=== PATIENT | female | born 1960 | race Caucasian/White ===

== ENCOUNTER 2016-12-02 18:02 | Emergency (ER) | payer OTHER ==
[2016-12-02 18:21] VITALS: BP 135/68; PULSE 123; TEMP 101.2; BMI 22.0
[2016-12-02] MEDS ORDERED: SODIUM CHLORIDE 1,000 ML IV STA (19:55)
--- NOTE | 2016-12-02 19:55 | PDOC ---
History of Present Illness - General History Source: Patient Exam Limitations: No Limitations - History of Present Illness Initial Comments: 12/02/16 20:07 The patient is a 56 year old female with significant past medical history of diabetes and kidney stones who presents to the ED with 1 day of right flank pain , fever and generalized malaise. Patient reports her right flank pain radiates to the right lower quadrant with associated nausea and nonbloody vomiting, but no diarrhea. Patient also has complaints of decreased PO intake. Denies dysuria , hematuria, urgency, and frequency. No exacerbating or alleviating factors. States her symptoms are consistent with her previous kidney stones. Patient states she did not taking anything for pain or fever. No recent travels or sick contacts. The patient denies diaphoresis, chills, cough, SOB, chest pain, and palpitations. Allergies: diphenhydramine HCl Social History: No alcohol, tobacco, or drug use reported. Past Surgical History: None reported PCP: None reported <Grecia Sarmiento - Last Filed: 12/02/16 20:07> - General History Source: Patient <LoganDavid yang - Last Filed: 12/03/16 00:34> - General Chief Complaint: Pain, Acute Stated Complaint: NAUSEA/VOMITING Time Seen by Provider: 12/02/16 19:46 Past History <Grecia Sarmiento - Last Filed: 12/02/16 20:07> - Past Medical History Diabetes: Yes Kidney Stones: Yes Suicide Attempt (Hx): No - Psycho/Social/Smoking Cessation Hx Anxiety: No Suicidal Ideation: No Smoking Status: No Smoking History: Never smoked Number of Cigarettes Smoked Daily: 0 Hx Alcohol Use: Yes (OCCASIONALLY) Drug/Substance Use Hx: No Substance Use Type: None <David Kirkpatrick - Last Filed: 12/03/16 00:34> - Past Medical History Allergies/Adverse Reactions: Allergies Allergy/AdvReac Type Severity Reaction Status Date / Time diphenhydramine HCl Allergy fever Verified 12/02/16 18:18 [From Miky] Home Medications: Ambulatory Orders Linagliptin/Metformin HCl [Jentadueto 2.5 mg-500 mg Tab] 1 each PO BID 01/06/13 Nitrofurantoin Monohyd/M-Cryst [Macrobid] 100 mg PO BID #20 capsule 01/06/13 Cephalexin Monohydrate [Keflex -] 500 mg PO BID #14 capsule 01/05/15 Ibuprofen [Motrin -] 600 mg PO TID #21 tablet 01/05/15 Oxycodone HCl/Acetaminophen [Percocet 5-325 mg Tablet -] 1 - 2 tab PO Q6H #14 tablet 01/05/15 Ibuprofen [Motrin] 600 mg PO TID #30 tablet 12/03/16 Levofloxacin [Levaquin -] 500 mg PO DAILY #7 tablet 12/03/16 Review of Systems - Review of Systems Able to Perform ROS?: Yes Comments:: 12/02/16 20:07 CONSTITUTIONAL: +fever, generalized malaise decreased PO intake Absent: no chills, no fatigue EYES: Absent: visual changes ENT: Absent: ear pain, no sore throat CARDIOVASCULAR: Absent: chest pain, no palpitations RESPIRATORY: Absent: cough, no SOB GI: +nausea, vomiting Absent: no constipation, no diarrhea GENITOURINARY: Absent: dysuria, no frequency, no hematuria MUSCULOSKELETAL: +left flank pain radiating to right lower quadrant Absent: no arthralgia, no myalgia SKIN: Absent: rash NEURO: Absent: headache <Grecia Sarmiento - Last Filed: 12/02/16 20:07> *Physical Exam - Vital Signs Last Vital Signs Temp Pulse Resp BP Pulse Ox 101.2 F H 123 H 18 135/68 96 12/02/16 18:17 12/02/16 18:17 12/02/16 18:17 12/02/16 18:17 12/02/16 18:17 - Physical Exam Comments: 12/02/16 20:07 GENERAL: Well-appearing, well-nourished. Mild distress. HEENT: Normocephalic, atraumatic. PERRL, EOM intact. Dry oral mucosa. CARDIOVASCULAR: Tachycardia. Normal S1, S2. Regular rhythm. PULMONARY: Clear to auscultation bilaterally. ABDOMEN: Soft, non-distended, non-tender. MUSCULOSKELETAL: Moderate CVA tenderness EXTREMITIES: Normal ROM in all four extremities. No gross deformities. SKIN: Warm, dry. No rash NEUROLOGICAL: No focal neurological deficits. <Grecia Sarmiento - Last Filed: 12/02/16 20:07> - Vital Signs Last Vital Signs Temp Pulse Resp BP Pulse Ox 101.2 F H 123 H 18 135/68 96 12/02/16 18:17 12/02/16 18:17 12/02/16 18:17 12/02/16 18:17 12/02/16 18:17 <David Kirkpatrick - Last Filed: 12/03/16 00:34> ED Treatment Course - LABORATORY CBC & Chemistry Diagram: 12/02/16 19:50 12/02/16 19:41 - ADDITIONAL ORDERS Additional order review: Laboratory Results 12/02/16 19:41 Urine Color Red Urine Appearance Turbid Urine pH 5.0 Ur Specific [place] 1.021 Urine Protein 2+ H Urine Glucose (UA) 3+ H Urine Ketones 1+ H Urine Blood 2+ H Urine Nitrite Positive Urine Bilirubin Negative Urine Urobilinogen Negative Ur Leukocyte Esterase 3+ H Urine RBC 7 Urine WBC 318 Ur Epithelial Cells Rare Urine Mucus Moderate Urine Yeast Few 12/02/16 19:50 RBC 4.78 MCV 82.1 MCHC 34.7 RDW 13.3 MPV 7.5 D Neutrophils % 85.8 H D Lymphocytes % 5.6 L D Monocytes % 8.3 Eosinophils % 0.0 D Basophils % 0.3 <Grecia Sarmiento - Last Filed: 12/02/16 20:07> - LABORATORY CBC & Chemistry Diagram: 12/02/16 19:50 12/02/16 19:41 <David Kirkpatrick - Last Filed: 12/03/16 00:34> Medical Decision Making - Medical Decision Making 12/03/16 00:29 Dr. Kirkpatrick: The scribe's documentation has been prepared under my direction and personally reviewed by me in its entirery. I confirm that the note above accurately reflects all work, treatment, procedures, and medical decision making performed by me. Pt feels better. No vomiting. tolerated po fluids. Pt will be discharged. Rx Levaquin 500mg po Qda for 7 days. Motrin 600mg po q8 <David Kirkpatrick - Last Filed: 12/03/16 00:34> *DC/Admit/Observation/Transfer - Attestations Scribe Attestion: 12/02/16 20:07 Documentation prepared by Grecia Sarmiento, acting as medical staff assistant for David Kirkpatrick MD <Grecia Sarmiento - Last Filed: 12/02/16 20:07> - Discharge Dispostion Admit: No <David Kirkpatrick - Last Filed: 12/03/16 00:34> Diagnosis at time of Disposition: UTI (lower urinary tract infection) - Prescriptions Prescriptions: Levofloxacin [Levaquin -] 500 mg PO DAILY #7 tablet Ibuprofen [Motrin] 600 mg PO TID #30 tablet - Patient Instructions Printed Discharge Instructions: DI for Urinary Tract Infection (UTI) Additional Instructions: Take all your medications as directed. Follow up with your doctor as soon as possible for re-evaluation. Drink plwnty of fluids Print Language: ARMENIAN
[2016-12-02] MEDS ORDERED: ONDANSETRON 4 MG/2 ML VIAL IVPUSH STA (19:56)
[2016-12-02 19:58] LABS: BASOPHIL 0.3 % (0-2.0); MCH 28.5 pg (25.7-33.7); MCHC 34.7 g/dl (32.0-36.0); MEAN CELL VOLUME 82.1 fl (80-96); MEAN PLT VOLUME 7.5 fl (7.5-11.1); NEUTROPHILS 85.8 % (42.8-82.8); PLATELET COUNT 213 K/MM3 (134-434); RDW 13.3 % (11.6-15.6); WHITE BLOOD COUNT 11.2 K/mm3 (4.0-10.0)
[2016-12-02 19:59] LABS: URINE APPEARANCE TURBID; URINE BILIRUBIN NEGATIVE (NEGATIVE); URINE COLOR RED; URINE GLUCOSE (UA) 3+ (NEGATIVE); URINE KETONE 1+ (NEGATIVE); URINE NITRITE POSITIVE (NEGATIVE); URINE UROBILINOGEN NEGATIVE E.U./dl (0.2-1.0)
[2016-12-02 20:00] LABS: URINE BLOOD 2+ (NEGATIVE); URINE LEUK ESTERASE 3+ (NEGATIVE); URINE PROTEIN 2+ (NEGATIVE)
[2016-12-02] MEDS ORDERED: ACETAMINOPHEN 1000 MG/100 ML VIAL (NON FORMULARY) IVPB ONE (20:00)
[2016-12-02 20:03] LABS: URINE MUCUS MODERATE; URINE RBC 7 /hpf (0-3); URINE WBC 318 /hpf (3-5); YEAST FEW
[2016-12-02] MEDS ORDERED: ONDANSETRON 4 MG/2 ML VIAL ONE (20:05)
[2016-12-02] MEDS ORDERED: CEFTRIAXONE 50 ML ONE ×2 (20:05→20:06)
[2016-12-02] MEDS ORDERED: ACETAMINOPHEN INJECTION 100 ML IVPB ONE (20:05)
[2016-12-02 20:28] LABS: ALBUMIN 3.8 g/dl (3.4-5.0); ANION GAP 10 (8-16); CALCIUM 8.6 mg/dL (8.5-10.1); CO2 28 mmol/L (21-32); CREATININE 0.7 mg/dL (0.55-1.02); SGOT/AST 23 U/L (15-37); SGPT/ALT 49 U/L (12-78)
[2016-12-02 20:30] LABS: ALK PHOS 152 U/L (45-117); BILIRUBIN,TOTAL 1.1 mg/dL (0.2-1.0); TOT PROT 7.5 g/dl (6.4-8.2)
[2016-12-02 20:35] LABS: GLUCOSE,RANDOM 323 mg/dL (74-106)
[2016-12-02] MEDS ORDERED: KETOROLAC TROMETHAMINE 30 MG/1 ML VIAL ONE (23:29)
[2016-12-03] MEDS ORDERED: KETOROLAC TROMETHAMINE 30 MG/1 ML VIAL IVPUSH ONE (00:21)
== END 2016-12-03 00:50 | disposition home or self-care (01) ==
LOC: JER 18:02
PROC: 3E03329 Introduction of Other Anti-infective into Peripheral Vein, Percutaneous Approach (ICD-10-PCS; principal; 2016-12-02)
PROC: 3E033NZ Introduction of Analgesics, Hypnotics, Sedatives into Peripheral Vein, Percutaneous Approach (ICD-10-PCS; 2016-12-02)
PROC: 3E033GC Introduction of Other Therapeutic Substance into Peripheral Vein, Percutaneous Approach (ICD-10-PCS; 2016-12-02)
PROC: 3E0333Z Introduction of Anti-inflammatory into Peripheral Vein, Percutaneous Approach (ICD-10-PCS; 2016-12-02)
DX: N39.0 Urinary tract infection, site not specified (principal); Z87.442 Personal history of urinary calculi
CPT/HCPCS: 36415; 80053; 81003; 81015; 83690; 85025; 87086; 87186; 99282-25

== ENCOUNTER 2016-12-03 17:57 | Inpatient (IN) | payer OTHER ==
[2016-12-03] MEDS ORDERED: SODIUM CHLORIDE 0.9% 1000 ML INFUS.BAG IV ONE (19:42)
[2016-12-03] MEDS ORDERED: CEFTRIAXONE 1 GM in DEXTROSE 5%-WATER - 50 ML IVPB ONE (19:45)
--- NOTE | 2016-12-03 19:45 | PDOC ---
History of Present Illness - General History Source: Patient, Old Records Exam Limitations: No Limitations - History of Present Illness Initial Comments: 12/03/16 19:52 The patient is a 56 year old female with past medical history of renal stones and diabetes who presents to the ED with complaints of worsening fever, right flank pain, as well as nausea and vomiting x3. The patient presented to the ED yesterday with similar, yet milder symptoms and was treated for a UTI in which she received one dose of ceftriaxone and was sent home with levaquin. The patient complains of increased weakness but family denies any changes in mental status. She denies any chest pain, shortness of breath, or cough. She denies any dysuria, hematuria, frequency, or urgency. Social hx: lithotripsy Social hx: The patient lives at home and denies any drug, alcohol, or tobacco use. <Dee Quintero - Last Filed: 12/03/16 22:44> <Brooklyn Augustine - Last Filed: 12/04/16 00:45> - General Chief Complaint: SIRS, Suspected/Possible Stated Complaint: FEVER Time Seen by Provider: 12/03/16 19:19 Past History <Dee Quintero - Last Filed: 12/03/16 22:44> - Past Medical History Diabetes: Yes Kidney Stones: Yes Suicide Attempt (Hx): No - Psycho/Social/Smoking Cessation Hx Anxiety: No Suicidal Ideation: No Smoking Status: No Smoking History: Never smoked Have you smoked in the past 12 months: No Number of Cigarettes Smoked Daily: 0 Information on smoking cessation initiated: No Hx Alcohol Use: No Drug/Substance Use Hx: No Substance Use Type: None <Brooklyn Augustine - Last Filed: 12/04/16 00:45> - Past Medical History Allergies/Adverse Reactions: Allergies Allergy/AdvReac Type Severity Reaction Status Date / Time diphenhydramine HCl Allergy fever Verified 12/03/16 18:02 [From Benadryl] Home Medications: Ambulatory Orders Ibuprofen [Motrin -] 600 mg PO TID #21 tablet 01/05/15 Review of Systems - Review of Systems Able to Perform ROS?: Yes Comments:: 12/03/16 19:52 GENERAL/CONSTITUTIONAL: Present: fever, chills, weakness, decreased appetite HEAD, EYES, EARS, NOSE AND THROAT: No change in vision. No ear pain or discharge. No sore throat. CARDIOVASCULAR: No chest pain or shortness of breath. RESPIRATORY: No cough, wheezing, or hemoptysis. GASTROINTESTINAL: Present: nausea, vomiting No diarrhea or constipation. GENITOURINARY: Present: Right lower back pain No dysuria, frequency, or change in urination. MUSCULOSKELETAL: No joint or muscle swelling or pain. No neck or back pain. SKIN: No rash NEUROLOGIC: No headache, vertigo, loss of consciousness, or change in strength/ sensation. ENDOCRINE: No increased thirst. No abnormal weight change. HEMATOLOGIC/LYMPHATIC: No anemia, easy bleeding, or history of blood clots. ALLERGIC/IMMUNOLOGIC: No hives or skin allergy. All Other Systems: Reviewed and Negative <Dee Quintero - Last Filed: 12/03/16 22:44> *Physical Exam - Vital Signs Last Vital Signs Temp Pulse Resp BP Pulse Ox 102.9 F H 136 H 17 102/53 97 12/03/16 18:04 12/03/16 18:04 12/03/16 18:04 12/03/16 18:04 12/03/16 18:04 - Physical Exam Comments: 12/03/16 19:53 GENERAL: Awake, alert, and fully oriented, in no acute distress HEAD: No signs of trauma EYES: PERRLA, EOMI, sclera anicteric, conjunctiva clear ENT: Auricles normal inspection, hearing grossly normal, nares patent, oropharynx clear without exudates. Moist mucosa NECK: Normal ROM, supple, no lymphadenopathy, JVD, or masses LUNGS: Breath sounds equal, clear to auscultation bilaterally. No wheezes, and no crackles HEART: Regular rate and rhythm, normal S1 and S2, no murmurs, rubs or gallops ABDOMEN: Soft, diffusely tender, normoactive bowel sounds. No guarding, no rebound. No masses BACK: Bilateral flank pain EXTREMITIES: Normal range of motion, no edema. No clubbing or cyanosis. No cords, erythema, or tenderness NEUROLOGICAL: Cranial nerves II through XII grossly intact. Normal speech, normal gait SKIN: Warm, Dry, normal turgor, no rashes or lesions noted. <Dee Quintero - Last Filed: 12/03/16 22:44> - Vital Signs Last Vital Signs Temp Pulse Resp BP Pulse Ox 102.9 F H 136 H 17 102/53 97 12/03/16 18:04 12/03/16 18:04 12/03/16 18:04 12/03/16 18:04 12/03/16 18:04 <Brooklyn Augustine - Last Filed: 12/04/16 00:45> ED Treatment Course - LABORATORY CBC & Chemistry Diagram: 12/03/16 20:15 12/03/16 20:15 <Dee Quintero - Last Filed: 12/03/16 22:44> - LABORATORY CBC & Chemistry Diagram: 12/03/16 20:15 12/03/16 20:15 - RADIOLOGY Radiology Studies Ordered: Category Date Time Status ABDOMEN & PELVIS CT W/O CONTR [CT] Stat CT Scan 12/03/16 19:45 Ordered CHEST X-RAY PORTABLE* [RAD] Stat Radiology 12/03/16 19:42 Ordered <DavideBroolkyn - Last Filed: 12/04/16 00:45> Medical Decision Making - Medical Decision Making 12/03/16 22:27 Abdominal/Pelvic CT as reviewed by Dr. Cordero reports small bowel dilation at the base of ileus, 2 mm urinary bladder calculus, left perirenal soft tissue stranding with small amount of free fluid in left paracolic space, nonspecific mildly enlarged left periaortic retroperiotoneal lymph node, moderate left renal lower pancreatic cortical scarring, bilateraly medullary nephrocalcinosis , small nonobstructing bilateral renal calculi, small stable left adrenal adenoma. <Dee Quintero - Last Filed: 12/03/16 22:44> - Medical Decision Making 12/03/16 19:59 Pt comes with continued fever with UTI; now flank pain. She was seen in the ER yesterday and treated with rocephin IV; she ws sent home with levaquin and asked to start the levaquin today, which she did. She has a hx of kidney stones in the past, which had been removed. Pt is diabetic, and though she is has been hydrating all day and eating soup and drinking water and cranberry juice, she is tachycardic, and complaining of epigastric pain, flank pain, and suprapubic pain. Today I will repeat labs, but I will also get a CT abd pelvis to look for stones and pyelonephritis. She has pyelonephritis, clinically. She will be admitted to the hospitalist today, as she has no PMD. 12/03/16 21:16 Pt has nitrite negative urine which is an improvement. Her WBC is coming down, though her neutrophil count is higher. Chem is pending. Pt has ketonuria. She is getting hydration. 12/03/16 21:20 Her lactic acid is normal. 12/04/16 00:45 EKG NSR <Brooklyn Augustine - Last Filed: 12/04/16 00:45> *DC/Admit/Observation/Transfer - Attestations Scribe Attestion: 12/03/16 19:55 Documentation prepared by Dee Quintero, acting as medical records clerk for Brooklyn Augustine MD. <Dee Quintero - Last Filed: 12/03/16 22:44> - Discharge Dispostion Admit: Yes <Brooklyn Augustine - Last Filed: 12/04/16 00:45> Diagnosis at time of Disposition: UTI (lower urinary tract infection), Nephrolithiasis, Renal calculus, bilateral , Pyelonephritis, Diabetes, Dehydration, Ketonuria, Ileus - Discharge Dispostion Condition at time of disposition: Guarded
[2016-12-03] MEDS ORDERED: IBUPROFEN 600 MG TABLET (FP) PO ONE ×2 (19:46→19:57)
[2016-12-03] MEDS ORDERED: ACETAMINOPHEN 1000 MG/100 ML VIAL (NON FORMULARY) IVPB ONE (19:46)
[2016-12-03] MEDS ORDERED: LEVOFLOXACIN 500 MG IVPB 100 ML IVPB ONE ×2 (19:46→20:04)
[2016-12-03] MEDS ORDERED: ACETAMINOPHEN INJECTION 100 ML IVPB ONE (20:03)
[2016-12-03] MEDS ORDERED: CEFTRIAXONE 50 ML ONE (20:04)
[2016-12-03 20:19] LABS: VENOUS PH 7.48 (7.32-7.42)
[2016-12-03 20:20] LABS: VENOUS BLOOD GAS HCO3 24.3 meq/L (19-25)
[2016-12-03 20:39] LABS: BASOPHIL 0.2 % (0-2.0); EOSINOPHIL 0.1 % (0-4.5); MCH 28.8 pg (25.7-33.7); MCHC 34.8 g/dl (32.0-36.0); MEAN CELL VOLUME 82.7 fl (80-96); MEAN PLT VOLUME 8.1 fl (7.5-11.1); NEUTROPHILS 90.7 % (42.8-82.8); PLATELET COUNT 149 K/MM3 (134-434); RDW 13.2 % (11.6-15.6)
[2016-12-03 20:42] LABS: URINE APPEARANCE CLEAR; URINE BILIRUBIN NEGATIVE (NEGATIVE); URINE COLOR YELLOW; URINE GLUCOSE (UA) 3+ (NEGATIVE); URINE KETONE 1+ (NEGATIVE); URINE NITRITE NEGATIVE (NEGATIVE); URINE UROBILINOGEN 2.0 E.U/dl E.U./dl (0.2-1.0)
[2016-12-03 20:50] LABS: URINE BLOOD 2+ (NEGATIVE); URINE LEUK ESTERASE 2+ (NEGATIVE); URINE PROTEIN 1+ (NEGATIVE)
[2016-12-03 20:54] LABS: INR 1.36 (0.82-1.09); PROTHROMBIN TIME (PATIENT) 15.1 SEC (9.98-11.88)
[2016-12-03 20:57] LABS: ACTIVATED PTT 25.5 SECONDS (26.9-34.4)
[2016-12-03 21:04] LABS: ALBUMIN 3.1 g/dl (3.4-5.0); ANION GAP 11 (8-16); CALCIUM 8.4 mg/dL (8.5-10.1); CO2 24 mmol/L (21-32); CREATININE 0.9 mg/dL (0.55-1.02); SGOT/AST 51 U/L (15-37); SGPT/ALT 57 U/L (12-78); TOT PROT 6.6 g/dl (6.4-8.2)
[2016-12-03 21:06] LABS: ALK PHOS 153 U/L (45-117); TROPONIN I < 0.02 ng/ml (0.00-0.05)
[2016-12-03 21:21] LABS: GLUCOSE,RANDOM 391 mg/dL (74-106)
[2016-12-03] MEDS ORDERED: SODIUM CHLORIDE 1,000 ML IV SCH (23:45)
--- NOTE | 2016-12-03 23:45 | HP ---
[id number] a 56 y/o female with a past medical history of Diabetes Mellitus, Renal Calculi, Lithotripsy. Who presents to the emergency department with fever , mid abdominal pain, and bilateral flank pain x 1 day. Patient is Icelandic speaking, her adult daughter translated per patient's request. Patient was here overnight for dysuria- Dx- UTI, treated with ceftriaxone, Rx- Levaquin, now reports fever with N/V, abdominal/flank pain. Patient also reports dysuria. Patient denies cough, dizziness, CP, constipation, melena, hematochezia, hematuria ER course was notable for: (1) T Max 102.9, P 136 given Tylenol/Motrin (2) CT abdomen/pelvis- non-obstructing stones (3) Glucose 391 Recent Travel: None PAST MEDICAL HISTORY: Diabetes Mellitus Renal Calculi PAST SURGICAL HISTORY: Lithotripsy Social History: Smoking: Never Alcohol: Socially Drugs: None Lives with family, not employed Family History: Non- contributory Allergies diphenhydramine HCl [From Benadryl] Allergy (Verified 12/03/16 18:02) fever HOME MEDICATIONS: Home Medications Medication Instructions Recorded Ibuprofen [Motrin -] 600 mg PO TID #21 tablet 01/05/15 REVIEW OF SYSTEMS CONSTITUTIONAL: Present: fever Absent: chills, diaphoresis, generalized weakness, malaise, loss of appetite, weight change HEENT: Absent: rhinorrhea, nasal congestion, throat pain, throat swelling, difficulty swallowing, mouth swelling, ear pain, eye pain, visual changes CARDIOVASCULAR: Absent: chest pain, syncope, palpitations, irregular heart rate, lightheadedness , peripheral edema RESPIRATORY: Absent: cough, shortness of breath, dyspnea with exertion, orthopnea, wheezing, stridor, hemoptysis GASTROINTESTINAL: Present: abdominal pain, nausea, vomiting Absent: abdominal distension, diarrhea, constipation, melena, hematochezia GENITOURINARY: Present: dysuria, flank pain Absent: frequency, urgency, hesitancy, hematuria, genital pain MUSCULOSKELETAL: Absent: myalgia, arthralgia, joint swelling, back pain, neck pain SKIN: Absent: rash, itching, pallor HEMATOLOGIC/IMMUNOLOGIC: Absent: easy bleeding, easy bruising, lymphadenopathy, frequent infections ENDOCRINE: Absent: unexplained weight gain, unexplained weight loss, heat intolerance, cold intolerance NEUROLOGIC: Absent: headache, focal weakness or paresthesias, dizziness, unsteady gait, seizure, mental status changes, bladder or bowel incontinence PSYCHIATRIC: Absent: anxiety, depression, suicidal or homicidal ideation, hallucinations. PHYSICAL EXAMINATION GENERAL: Awake, alert, and fully oriented, in no acute distress. HEAD: Normal with no signs of trauma. EYES: Pupils equal, round and reactive to light, extraocular movements intact, sclera anicteric, conjunctiva clear. No lid lag. EARS, NOSE, THROAT: Dry mucous membranes. Ears normal, nares patent, oropharynx clear without exudates. NECK: Normal range of motion, supple without lymphadenopathy, JVD, or masses. LUNGS: Breath sounds equal, clear to auscultation bilaterally. No wheezes, and no crackles. No accessory muscle use. HEART: Regular rate and rhythm, normal S1 and S2 without murmur, rub or gallop. ABDOMEN: Epigastric tenderness. Soft, not distended, normoactive bowel sounds, no guarding, no rebound, no masses. No hepatomegaly or splenomegaly. MUSCULOSKELETAL: Bilateral CVA tenderness. Normal range of motion at all joints. No bony deformities or tenderness. UPPER EXTREMITIES: 2+ pulses, warm, well-perfused. No cyanosis. No clubbing. No peripheral edema. LOWER EXTREMITIES: 2+ pulses, warm, well-perfused. No calf tenderness. No peripheral edema. NEUROLOGICAL: Cranial nerves II-XII intact. Normal speech. Normal gait. PSYCHIATRIC: Cooperative. Good eye contact. Appropriate mood and affect. SKIN: Warm, dry, normal turgor, no rashes or lesions noted, normal capillary refill. Laboratory Results - last 24 hr 3 12/03/16 12/03/16 12/03/16 20:15 20:15 20:15 WBC 8.0 RBC 4.51 Hgb 13.0 Hct 37.3 MCV 82.7 MCHC 34.8 RDW 13.2 Plt Count 149 D MPV 8.1 Neutrophils % 90.7 H Lymphocytes % 3.8 L D Monocytes % 5.2 Eosinophils % 0.1 D Basophils % 0.2 INR 1.36 H PTT (Actin FS) 25.5 L VBG pH POC VBG pCO2 POC VBG pO2 Mixed VBG HCO3 Sodium Potassium Chloride Carbon Dioxide Anion Gap BUN Creatinine Creat Clearance w eGFR Random Glucose Lactic Acid Calcium Total Bilirubin AST ALT Alkaline Phosphatase Creatine Kinase Troponin I Total Protein Albumin Urine Color Yellow Urine Appearance Clear Urine pH 6.0 Ur Specific [place] 1.025 Urine Protein 1+ H Urine Glucose (UA) 3+ H Urine Ketones 1+ H Urine Blood 2+ H Urine Nitrite Negative Urine Bilirubin Negative Urine Urobilinogen 2.0 e.u/dl H Ur Leukocyte Esterase 2+ H Acetone, Qual Blood Type Antibody Screen 3 12/03/16 12/03/16 12/03/16 20:15 20:15 20:15 WBC RBC Hgb Hct MCV MCHC RDW Plt Count MPV Neutrophils % Lymphocytes % Monocytes % Eosinophils % Basophils % INR PTT (Actin FS) VBG pH 7.48 H POC VBG pCO2 33.1 L POC VBG pO2 42.4 Mixed VBG HCO3 24.3 Sodium 132 L Potassium 3.7 Chloride 97 L Carbon Dioxide 24 Anion Gap 11 BUN 20 H D Creatinine 0.9 D Creat Clearance w eGFR > 60 Random Glucose 391 H* D Lactic Acid 1.454 Calcium 8.4 L Total Bilirubin 2.0 H D AST 51 H D ALT 57 Alkaline Phosphatase 153 H Creatine Kinase 70 Troponin I < 0.02 Total Protein 6.6 Albumin 3.1 L Urine Color Urine Appearance Urine pH Ur Specific [place] Urine Protein Urine Glucose (UA) Urine Ketones Urine Blood Urine Nitrite Urine Bilirubin Urine Urobilinogen Ur Leukocyte Esterase Acetone, Qual Blood Type Antibody Screen 3 12/03/16 12/03/16 20:15 20:15 WBC RBC Hgb Hct MCV MCHC RDW Plt Count MPV Neutrophils % Lymphocytes % Monocytes % Eosinophils % Basophils % INR PTT (Actin FS) VBG pH POC VBG pCO2 POC VBG pO2 Mixed VBG HCO3 Sodium Potassium Chloride Carbon Dioxide Anion Gap BUN Creatinine Creat Clearance w eGFR Random Glucose Lactic Acid Calcium Total Bilirubin AST ALT Alkaline Phosphatase Creatine Kinase Troponin I Total Protein Albumin Urine Color Urine Appearance Urine pH Ur Specific [place] Urine Protein Urine Glucose (UA) Urine Ketones Urine Blood Urine Nitrite Urine Bilirubin Urine Urobilinogen Ur Leukocyte Esterase Acetone, Qual Trace H Blood Type A NEGATIVE Antibody Screen Negative ASSESSMENT/PLAN: This is a 56 y/o female with a PMHx of: DM, Renal Calculi. Who presents to the ED for fever, abdominal/flank pain. Placed on Observation for further evaluation of their emergent condition. 1. : UTI/Pyelonephritis - Urine showed leukocyte Esterase, blood, protein - Urine Culture pending - T Max 102.9 - No Leukocytosis, Lactic Acid- wnl - CT shows non-obstructing stone - Strain all urine - Given Ceftriaxone, Levaquin in ED - Will continue Levofloxacin - IVF - Monitor CBC, Vitals - f/u with urology in outpatient 2. Endocrine: Diabetes Mellitus - Uncontrolled - Likely secondary to infection vs dehydration - ISS - BGMs - HgbA1C in am - Add on Serum Acetone- trace - f/u with Endocrinology in outpatient - Will hold home med 3. GI: Nausea/Vomiting/Abdominal Pain - Likely secondary to UTI/Pyelonephritis - CT report: non obstructing stone - Zofran prn - Morphne prn - IVF - Montor BMP 4. Fever - Likely secondary to UTI/Pyelonephriitis - Blood Cultures-pending - Tylenol/Motrin given in ED - No Leukocytosis - Monitor vitals - Continue Tylenol prn 5. DVT Prophylaxis - OOB - SCDs - Consider AC if LOS > 48 hrs 6. FEN - NS@125cc/hr - Repeat labs in am - NPO, advance diet to Clear as tolerated Code Status: Full Code Problem List - Problem (1) Pyelonephritis Code(s): N12 - TUBULO-INTERSTITIAL NEPHRITIS, NOT SPCF ACUTE OR CHRONIC (2) UTI (lower urinary tract infection) Code(s): N39.0 - URINARY TRACT INFECTION, SITE NOT SPECIFIED (3) Dehydration Code(s): E86.0 - DEHYDRATION (4) Diabetes Code(s): E11.9 - TYPE 2 DIABETES MELLITUS WITHOUT COMPLICATIONS (5) Nephrolithiasis Code(s): N20.0 - CALCULUS OF KIDNEY (6) Ketonuria Code(s): R82.4 - ACETONURIA (7) DVT prophylaxis Code(s): [id number] - Visit type - Emergency Visit Emergency Visit: Yes ED Registration Date: 12/03/16 Care time: The patient presented to the Emergency Department on the above date and was hospitalized for further evaluation of their emergent condition. - New Patient This patient is new to me today: Yes Date on this admission: 12/03/16 - Critical Care Critical Care patient: No
[2016-12-04] MEDS ORDERED: ONDANSETRON 4 MG/2 ML VIAL ONE (00:51)
[2016-12-04] MEDS: ONDANSETRON 4 MG/2 ML VIAL IVPB PRN ×3 (01:00→23:20)
[2016-12-04 01:39] LABS: URINE RBC 9 /hpf (0-3); URINE WBC 57 /hpf (3-5)
[2016-12-04] MEDS: morphine CARPU-JECT 2 MG/1 ML DISP.SYRIN IVPUSH PRN ×3 (03:04→23:00)
[2016-12-04 04:38] VITALS: BMI 19.6
[2016-12-04] MEDS: INSULIN SLIDING SCALE (NOVOLOG) 1 VIAL SQ SCH ×4 (06:43→22:39)
[2016-12-04 08:07] LABS: BASOPHIL 0.1 % (0-2.0); EOSINOPHIL 0.1 % (0-4.5); MCH 29.2 pg (25.7-33.7); MCHC 34.8 g/dl (32.0-36.0); MEAN CELL VOLUME 83.7 fl (80-96); MEAN PLT VOLUME 8.3 fl (7.5-11.1); NEUTROPHILS 85.8 % (42.8-82.8); PLATELET COUNT 124 K/MM3 (134-434); RDW 13.5 % (11.6-15.6); WHITE BLOOD COUNT 7.9 K/mm3 (4.0-10.0)
[2016-12-04 08:40] LABS: CALCIUM 7.8 mg/dL (8.5-10.1)
[2016-12-04 08:41] LABS: CREATININE 0.7 mg/dL (0.55-1.02)
[2016-12-04] MEDS ORDERED: LEVOFLOXACIN 750 MG IVPB 150 ML IVPB SCH (10:00)
--- NOTE | 2016-12-04 11:58 | PN ---
Physical Exam: SUBJECTIVE: Patient seen and examined. States she is having pain in her abdomen and vomited x 1 this morning. OBJECTIVE: Vital Signs Period Temp Pulse Resp BP Sys/Hemphill Pulse Ox Last 24 Hr 98.4 F-99.5 F 84-115 18-20 98-112/56-58 97-98 GENERAL: The patient is awake, alert, and fully oriented, ill-appearing HEAD: Normal with no signs of trauma. EYES: PERRL, extraocular movements intact, sclera anicteric, conjunctiva clear. No ptosis. ENT: Ears normal, nares patent, oropharynx clear without exudates, moist mucous membranes. NECK: Trachea midline, full range of motion, supple. LUNGS: Breath sounds equal, clear to auscultation bilaterally, no wheezes, no crackles, no accessory muscle use. HEART: Regular rate and rhythm, S1, S2 without murmur, rub or gallop. ABDOMEN: Soft, diffuse tenderness to palpation, nondistended, normoactive bowel sounds, no guarding, no rebound, no hepatosplenomegaly, no masses, bilateral CVA tenderness EXTREMITIES: 2+ pulses, warm, well-perfused, no edema. NEUROLOGICAL: Cranial nerves II through XII grossly intact. Normal speech, gait not observed. Laboratory Results - last 24 hr 12/04/16 12/04/16 12/04/16 03:02 05:38 05:38 WBC 7.9 RBC 3.88 Hgb 11.3 D Hct 32.4 MCV 83.7 MCHC 34.8 RDW 13.5 Plt Count 124 L MPV 8.3 Neutrophils % 85.8 H Lymphocytes % 7.8 L D Monocytes % 6.2 Eosinophils % 0.1 Basophils % 0.1 Sodium 138 Potassium 3.7 Chloride 104 Carbon Dioxide 25 Anion Gap 9 BUN 21 H Creatinine 0.7 D POC Glucometer 316 Random Glucose 291 H D Hemoglobin A1c % Calcium 7.8 L 12/04/16 12/04/16 12/04/16 05:38 06:37 10:52 WBC RBC Hgb Hct MCV MCHC RDW Plt Count MPV Neutrophils % Lymphocytes % Monocytes % Eosinophils % Basophils % Sodium Potassium Chloride Carbon Dioxide Anion Gap BUN Creatinine POC Glucometer 254 218 Random Glucose Hemoglobin A1c % 12.2 H Calcium Imagin/14 CXR - No acute pathology 12/03 CT A/P - (1) mild proximal small bowel dilitation, ileus v. early SBO; (2) 2mm urinary bladder calculus; (3) left perirenal stranding; (4) enlarged left periaortic lymph node, 3 month followup essential; (5) bilateral medullary nephrocalcinosis ASSESSMENT/PLAN: 56 year-old female with PMH renal calculi, lithotripsy and diabetes admitted for sepsis likely secondary to UTI and pyelonephritis. 1. Severe sepsis likely secondary to UTI/pyelonephritis - Tm 102.9, p 136, WBC 11.2k, hypotension - Pyruia 57 WBC, urine culture LFGNB - first lactic acid wnl, repeat pending - fluid bolus another 2L - US renal/bladder pending 2. Ileus v. early SBO --one episode of emesis this morning, diffuse abdominal tenderness --if vomiting continues will need NG tube --repeat FUA in am - Zofran PRN nausea/vomiting - Morphine PRN for pain 4. IDDM Diabetes - Hgb A1c 12.2 and trace serum acetone - BGM and Novolog SSI 5. DVT Prophylaxis - SCDs, ambulate as tolerated - lovenox F/E/N Fluids: NS @ 125/hr Electrolytes: Monitor and replace as needed Nutrition: continue NPO Dispo: Patient requires continued inpatient care FULL CODE Visit type - Emergency Visit Emergency Visit: Yes ED Registration Date: 12/03/16 Care time: The patient presented to the Emergency Department on the above date and was hospitalized for further evaluation of their emergent condition. - New Patient This patient is new to me today: Yes Date on this admission: 12/04/16 - Critical Care Critical Care patient: No
[2016-12-04] MEDS ORDERED: SODIUM CHLORIDE 1,000 ML IV STA (16:02)
[2016-12-04] MEDS ORDERED: VANCOMYCIN 1 GRAM (PRE-DOCKED) 1,000 MG/250 ML BAG IVPB ONE (16:42)
[2016-12-04] MEDS: ACETAMINOPHEN 325 MG TABLET (FP) PO PRN (16:48)
--- NOTE | 2016-12-04 18:23 | EKG ---
Test Reason : Blood Pressure : / mmHG Vent. Rate : 089 BPM Atrial Rate : 089 BPM P-R Int : 160 ms QRS Dur : 072 ms QT Int : 378 ms P-R-T Axes : 071 079 067 degrees QTc Int : 459 ms NORMAL SINUS RHYTHM NORMAL ECG WHEN COMPARED WITH ECG OF 08-JUN-2009 20:59, T WAVE INVERSION LESS EVIDENT IN ANTERIOR LEADS CLINICAL CORRELATION IS RECOMMENDED Confirmed by MALCOM CHAUDHRY, ADDIE ([id number]) on 12/04/2016 6:23:04 PM Referred By: Confirmed By:ADDIE العراقي MD
[2016-12-04] MEDS: SODIUM CHLORIDE 1,000 ML IV SCH ×3 (18:39→23:02)
[2016-12-04] MEDS: ENOXAPARIN NA (PORCINE) 40 MG/0.4 ML DISP.SYRIN SQ SCH (18:40)
[2016-12-04] MEDS: PIPERACILLIN/TAZOB 3.375 GM/50 ML PRE-DOCKED IVPB SCH (18:40)
[2016-12-05] MEDS: PIPERACILLIN/TAZOB 3.375 GM/50 ML PRE-DOCKED IVPB SCH (03:04)
[2016-12-05] MEDS: ACETAMINOPHEN 325 MG TABLET (FP) PO PRN (03:20)
[2016-12-05 06:26] LABS: BASOPHIL 0.2 % (0-2.0); EOSINOPHIL 0.1 % (0-4.5); MCH 29.2 pg (25.7-33.7); MCHC 35.3 g/dl (32.0-36.0); MEAN CELL VOLUME 82.9 fl (80-96); MEAN PLT VOLUME 8.7 fl (7.5-11.1); NEUTROPHILS 79.8 % (42.8-82.8); PLATELET COUNT 127 K/MM3 (134-434); RDW 13.2 % (11.6-15.6); WHITE BLOOD COUNT 6.4 K/mm3 (4.0-10.0)
[2016-12-05 06:53] LABS: ALBUMIN 2.1 g/dl (3.4-5.0); ALK PHOS 191 U/L (45-117); ANION GAP 10 (8-16); BILIRUBIN,TOTAL 1.4 mg/dL (0.2-1.0); CALCIUM 7.6 mg/dL (8.5-10.1); CO2 23 mmol/L (21-32); COCKROFT - GAULT 96.6195; CREATININE 0.5 mg/dL (0.55-1.02); GLUCOSE,RANDOM 238 mg/dL (74-106); MAGNESIUM 1.9 mg/dL (1.8-2.4); PHOSPHOROUS 1.3 mg/dL (2.5-4.9); SGOT/AST 66 U/L (15-37); SGPT/ALT 72 U/L (12-78)
[2016-12-05] MEDS: INSULIN SLIDING SCALE (NOVOLOG) 1 VIAL SQ SCH ×4 (06:58→22:02)
--- NOTE | 2016-12-05 09:49 | PN ---
Progress Note (short form) - Note Progress Note: ID 56 year old [place] female living in [place] for 27 years with no recent travel presents to hospital for admission for urosepsis nausea vomiting fever. Denies dysuria. Called for fever and gram negative in the urine. History of admission [facility] 4 years ago treated with quinolone for several days and told she had kidney stone at that time. As I discussed given Ceftriaxone and Gentamicin. Treated in ER Ceftriaxone Gent Feeling better though still ill. She is diabetic. Selected Entries 12/04/16 12/05/16 17:00 05:21 Temperature 101.3 F H 100.5 F H Pulse Rate 106 H Respiratory 20 Rate Blood Pressure 116/60 Ling Clear Cor S1 S2 RR no murmur Abd Soft nontender Ext Bilateral CVA Microbiology 12/03/16 20:15 Blood - Peripheral Venous Blood Culture - Preliminary NO GROWTH OBTAINED AFTER 24 HOURS, INCUBATION TO CONTINUE FOR 4 DAYS. 12/03/16 20:15 Blood - Peripheral Venous Blood Culture - Preliminary NO GROWTH OBTAINED AFTER 24 HOURS, INCUBATION TO CONTINUE FOR 4 DAYS. Laboratory Tests 12/03/16 12/05/16 12/05/16 20:15 05:32 05:32 WBC 6.4 Hgb 10.2 L Plt Count 127 L Total Bilirubin 1.4 H D Alkaline Phosphatase 191 H D Urine WBC 57 Assessment Klebsiella pyelonephritis sensitive Nephrolithiasis Diabetes Plan Expect 48-72 hours to see improvement here then can be changed to Keflex for home Eliud CHAUDHRY Problem List - Problems (1) Diabetes Code(s): E11.9 - TYPE 2 DIABETES MELLITUS WITHOUT COMPLICATIONS (2) Nephrolithiasis Code(s): N20.0 - CALCULUS OF KIDNEY (3) Pyelonephritis, acute Code(s): N10 - ACUTE PYELONEPHRITIS
[2016-12-05] MEDS ORDERED: PIPERACILLIN/TAZOB 3.375 GM/50 ML PRE-DOCKED IVPB SCH (10:00)
[2016-12-05] MEDS ORDERED: GENTAMICIN INJECTION 250 MG in SODIUM CHLORIDE 250 ML IVPB ONE (10:30)
[2016-12-05] MEDS: ENOXAPARIN NA (PORCINE) 40 MG/0.4 ML DISP.SYRIN SQ SCH (10:33)
[2016-12-05] MEDS: CEFTRIAXONE 100 ML IVPB SCH (10:33)
[2016-12-05] MEDS: NAPH,MB-DB/K PH,MBDB POWDER PACKET PO SCH ×2 (10:34→17:57)
[2016-12-05] MEDS ORDERED: INSULIN (NOVOLOG) ASPART 100 UNITS/ML 10ML VIAL ONE (11:26)
--- NOTE | 2016-12-05 13:24 | PN ---
Physical Exam: SUBJECTIVE: Patient seen and examined. Still very weak, nauseous, bilateral flank pain. No vomiting. OBJECTIVE: Vital Signs Period Temp Pulse Resp BP Sys/Hemphill Pulse Ox Last 24 Hr 99.2 F-101.9 F 87-106 18-20 98-120/60-64 98-98 GENERAL: The patient is awake, alert, and fully oriented, ill-appearing. HEAD: Normal with no signs of trauma. EYES: PERRL, extraocular movements intact, sclera anicteric, conjunctiva clear. No ptosis. ENT: Ears normal, nares patent, oropharynx clear without exudates, moist mucous membranes. NECK: Trachea midline, full range of motion, supple. LUNGS: Breath sounds equal, clear to auscultation bilaterally, no wheezes, no crackles, no accessory muscle use. HEART: Regular rate and rhythm, S1, S2 without murmur, rub or gallop. ABDOMEN: Soft, not tender, hypoactive bowel sounds, no guarding, no rebound EXTREMITIES: 2+ pulses, warm, well-perfused, no edema. NEUROLOGICAL: Cranial nerves II through XII grossly intact. Normal speech, gait not observed. Laboratory Results - last 24 hr 12/04/16 12/04/16 12/05/16 21:38 23:41 05:32 WBC 6.4 RBC 3.49 L Hgb 10.2 L Hct 29.0 L MCV 82.9 MCHC 35.3 RDW 13.2 Plt Count 127 L MPV 8.7 Neutrophils % 79.8 Lymphocytes % 10.1 D Monocytes % 9.8 Eosinophils % 0.1 Basophils % 0.2 Sodium Potassium Chloride Carbon Dioxide Anion Gap BUN Creatinine Creat Clearance w eGFR POC Glucometer 243 Random Glucose Calcium Phosphorus Magnesium Total Bilirubin AST ALT Alkaline Phosphatase Total Protein Albumin Acetone, Qual Positive small 1+ H 12/05/16 12/05/16 12/05/16 05:32 06:21 11:21 WBC RBC Hgb Hct MCV MCHC RDW Plt Count MPV Neutrophils % Lymphocytes % Monocytes % Eosinophils % Basophils % Sodium 138 Potassium 3.3 L Chloride 105 Carbon Dioxide 23 Anion Gap 10 BUN 9 D Creatinine 0.5 L D Creat Clearance w eGFR > 60 POC Glucometer 249 220 Random Glucose 238 H Calcium 7.6 L Phosphorus 1.3 L Magnesium 1.9 Total Bilirubin 1.4 H D AST 66 H D ALT 72 D Alkaline Phosphatase 191 H D Total Protein 5.0 L D Albumin 2.1 L D Acetone, Qual Active Medications Generic Name Dose Route Start Last Admin Trade Name Freq PRN Reason Stop Dose Admin Acetaminophen 650 mg 12/04/16 16:34 12/05/16 03:20 Tylenol - PO 650 mg Q6H PRN Administration FEVER OR PAIN Enoxaparin Sodium 40 mg 12/04/16 18:00 12/05/16 10:33 Lovenox - SQ 40 mg DAILY LUANN Administration Sodium Chloride 1,000 mls @ 125 mls/hr 12/04/16 18:00 12/04/16 23:02 Normal Saline - IV 125 mls/hr ASDIR LUANN Administration Ceftriaxone Sodium 100 mls @ 200 mls/hr 12/05/16 10:00 12/05/16 10:33 Rocephin 2gm Ivpb (Pre-Docked) IVPB 200 mls/hr DAILY LUANN Administration Insulin Aspart 1 vial 12/04/16 07:00 12/05/16 11:32 Novolog Vial Sliding Scale - SQ 4 units ACHS LUANN Administration Protocol Ondansetron HCl 4 mg 12/03/16 23:38 12/04/16 23:20 Zofran Injection IVPB 4 mg Q6H PRN Administration NAUSEA Potassium Phos/Sodium Phos 2 packet 12/05/16 10:30 12/05/16 10:34 Phos-Nak Packet - PO 12/06/16 02:31 2 packet Q8H LUANN Administration ASSESSMENT/PLAN Imagin/14 CXR - No acute pathology 12/03 CT A/P - (1) mild proximal small bowel dilitation, ileus v. early SBO; (2) 2mm urinary bladder calculus; (3) left perirenal stranding; (4) enlarged left periaortic lymph node, 3 month followup essential; (5) bilateral medullary nephrocalcinosis 12/05 KUB FUA: possible ileus 56 year-old female with PMH renal calculi, lithotripsy and diabetes admitted for sepsis likely secondary to UTI and pyelonephritis. Severe sepsis likely secondary to UTI/pyelonephritis - Tm 101.9, p 106, WBC wnl, mildly hypotensive - urine culture +Klebsiella - ceftriaxone (day #1); gent 250mg x 1 dose per ID - bolus 500mL x 1 Urinary retention --12/04 US showed post-void residual 170cc's --insert haq Bilateral medullary nephrocalcinosis Hypophosphatemia --nephrocalcinosis seen on 12/03 CTAP and 12/04 ultrasound --renal function is OK and not hypercalcemic, corrected Ca 9.1 today --phos 1.3, repleted with Phos-NaK 2 packets x 3 --renal consult requested Ileus v. early SBO --possible ileus seen again on todays KUB FUA; no vomiting since yesterday but continues to be nauseous and c/o abdominal pain --if vomits again, will place NG tube --Zofran PRN --NPO --repeat KUB FUA in am IDDM Diabetes, poorly controlled - Hgb A1c 12.2 and trace serum acetone - BGM and Novolog SSI DVT Prophylaxis: lovenox, SCDs, oob when able, ambulation F/E/N Fluids: NS @ 125/hr after bolus Electrolytes: replete as indicated Nutrition: NPO Dispo: Patient requires continued inpatient care FULL CODE Visit type - Emergency Visit Emergency Visit: Yes ED Registration Date: 12/04/16 Care time: The patient presented to the Emergency Department on the above date and was hospitalized for further evaluation of their emergent condition. - New Patient This patient is new to me today: No - Critical Care Critical Care patient: Yes Total Critical Care Time (in minutes): 45 Critical Care Statement: The care of this patient involved high complexity decision making to prevent further life threatening deterioration of the patient 's condition and/or to evalute & treat vital organ system(s) failure or risk of failure.
[2016-12-05] MEDS ORDERED: SODIUM CHLORIDE 500 ML IV STA (15:42)
[2016-12-05] MEDS ORDERED: ACETAMINOPHEN 650 MG SUPP.RECT PR PRN (17:19)
[2016-12-05] MEDS: SODIUM CHLORIDE 1,000 ML IV SCH (17:59)
[2016-12-05] MEDS ORDERED: IBUPROFEN 800 MG/8 ML IJ IVPB ONE (18:05)
[2016-12-05] MEDS ORDERED: SODIUM CHLORIDE 1,000 ML IV STA (22:24)
[2016-12-06] MEDS: NAPH,MB-DB/K PH,MBDB POWDER PACKET PO SCH ×2 (02:40→21:21)
[2016-12-06] MEDS: INSULIN SLIDING SCALE (NOVOLOG) 1 VIAL SQ SCH ×4 (06:20→21:18)
[2016-12-06] MEDS: SODIUM CHLORIDE 1,000 ML IV SCH (06:22)
[2016-12-06 09:01] LABS: BASOPHIL 0.3 % (0-2.0); EOSINOPHIL 0.4 % (0-4.5); MCH 28.3 pg (25.7-33.7); MCHC 33.6 g/dl (32.0-36.0); MEAN CELL VOLUME 84.2 fl (80-96); MEAN PLT VOLUME 8.2 fl (7.5-11.1); NEUTROPHILS 75.5 % (42.8-82.8); PLATELET COUNT 147 K/MM3 (134-434); RDW 13.1 % (11.6-15.6); WHITE BLOOD COUNT 6.7 K/mm3 (4.0-10.0)
[2016-12-06 09:05] LABS: CALCIUM 7.5 mg/dL (8.5-10.1); CREATININE 0.3 mg/dL (0.55-1.02); MAGNESIUM 1.7 mg/dL (1.8-2.4); PHOSPHOROUS 1.8 mg/dL (2.5-4.9)
--- NOTE | 2016-12-06 10:21 | PN ---
Physical Exam: SUBJECTIVE: Patient seen and examined. States she is still having abdominal pain, some nausea. Denies vomiting. Denies chest pain. OBJECTIVE: Pt still having abdominal discomfort + bowel sounds on all 4 quadrants Will change Zofran to Reglan as it may alleviate her abdominal symptoms Monitor for improvement K. 3.0 - replete with 3 K riders Blood culture pending organism She is currently tolerating water/ice chips Fever curve improving Vital Signs Period Temp Pulse Resp BP Sys/Hemphill Pulse Ox Last 24 Hr 98 F-101.0 F 80-90 18-20 105-123/50-75 98 GENERAL: The patient is awake, alert, and fully oriented, in no acute distress. HEAD: Normal with no signs of trauma. EYES: PERRL, extraocular movements intact, sclera anicteric, conjunctiva clear. No ptosis. ENT: Ears normal, nares patent, oropharynx clear without exudates, moist mucous membranes. NECK: Trachea midline, full range of motion, supple. LUNGS: Breath sounds equal, clear to auscultation bilaterally, no wheezes, no crackles, no accessory muscle use. ABDOMEN: Soft, nontender, nondistended, normoactive bowel sounds, states she is still having abdominal discomfort EXTREMITIES: 2+ pulses, warm, well-perfused, no edema. NEUROLOGICAL: Normal speech, gait not observed. PSYCH: Normal mood, normal affect. SKIN: Warm, dry, normal turgor, no rashes or lesions noted Laboratory Results - last 24 hr 12/04/16 12/05/16 12/05/16 23:41 11:21 16:48 WBC RBC Hgb Hct MCV MCHC RDW Plt Count MPV Neutrophils % Lymphocytes % Monocytes % Eosinophils % Basophils % Sodium Potassium Chloride Carbon Dioxide Anion Gap BUN Creatinine POC Glucometer 220 200 Random Glucose Calcium Phosphorus Magnesium Acetone, Qual Positive small 1+ H 12/05/16 12/06/16 12/06/16 21:57 06:01 07:50 WBC RBC Hgb Hct MCV MCHC RDW Plt Count MPV Neutrophils % Lymphocytes % Monocytes % Eosinophils % Basophils % Sodium 142 Potassium 3.0 L Chloride 108 H Carbon Dioxide 20 L Anion Gap 14 BUN 7 D Creatinine 0.3 L D POC Glucometer 152 110 Random Glucose 111 H D Calcium 7.5 L Phosphorus 1.8 L D Magnesium 1.7 L Acetone, Qual 12/06/16 08:34 WBC 6.7 RBC 4.02 Hgb 11.4 D Hct 33.8 D MCV 84.2 MCHC 33.6 RDW 13.1 Plt Count 147 MPV 8.2 Neutrophils % 75.5 Lymphocytes % 13.8 D Monocytes % 10.0 Eosinophils % 0.4 D Basophils % 0.3 Sodium Potassium Chloride Carbon Dioxide Anion Gap BUN Creatinine POC Glucometer Random Glucose Calcium Phosphorus Magnesium Acetone, Qual Active Medications Generic Name Dose Route Start Last Admin Trade Name Freq PRN Reason Stop Dose Admin Acetaminophen 650 mg 12/04/16 16:34 12/05/16 03:20 Tylenol - PO 650 mg Q6H PRN Administration FEVER OR PAIN Acetaminophen 650 mg 12/05/16 17:19 12/05/16 17:02 Tylenol Suppository - IL 650 mg Q6H PRN Administration FEVER OR PAIN Enoxaparin Sodium 40 mg 12/04/16 18:00 12/05/16 10:33 Lovenox - SQ 40 mg DAILY LUANN Administration Sodium Chloride 1,000 mls @ 125 mls/hr 12/04/16 18:00 12/06/16 06:22 Normal Saline - IV 125 mls/hr ASDIR LUANN Administration Ceftriaxone Sodium 100 mls @ 200 mls/hr 12/05/16 10:00 12/05/16 10:33 Rocephin 2gm Ivpb (Pre-Docked) IVPB 200 mls/hr DAILY LUANN Administration Potassium Chloride 100 mls @ 100 mls/hr 12/06/16 10:00 Potassium Chloride 10 Meq Premix Ivpb - IVPB 12/06/16 12:59 Q60M [facility] Insulin Aspart 1 vial 12/04/16 07:00 12/06/16 06:20 Novolog Vial Sliding Scale - SQ Not Given ACHS [facility] Protocol Metoclopramide HCl 10 mg 12/06/16 10:15 Reglan Injection - IVPB Q6H-IV LUANN ASSESSMENT/PLAN: Patient is a 55 year old female with a significant past medical history of renal calculi, lithotripsy and diabetes mellitus. She was admitted on 2016 for sepsis secondary to UTI and pyelonephritis. Imagin/14 CT of abdomen/pelvis: mild proximal small bowel dilitation, ileus v. early SBO, 2mm urinary bladder calculus, left perirenal stranding; enlarged left periaortic lymph node, 3 month followup essential. bilateral medullary nephrocalcinosis 12/05 KUB FUA: possible ileus vs sbo 12/06 KUB: bilateral renal calculi, non specific bowel pattern, slightly less distention ID Severe sepsis likely secondary to UTI/Pyelonephritis - improving Assessment/Plan: Fever curve trending down, having low grade fevers today, TMAX 101 on 12/05 Hypotension resolving, WBC within normal limits On Ceftriaxone 2 gram daily started 12/05 Urine cultures with no growth to date Blood cultures pending organism Received Gentamicin x 1 by ID on 12/05 Monitor BP, wbc, fever curve : Urinary retention Assessment/Plan: Mcdaniel for post void residual Monitor intake and output Bilateral medullary nephrocalcinosis Assessment/Plan: Seen on CT scan and ultrasound Renal consulted, started pt on Cytra K GI: SBO vs. Ileus Assessment/Plan: Patient having abdominal pain, denies vomiting abdomen non distended, repeat abdominal xray shows non specific bowel pattern Will start on sips of water and ice chips and monitor Reglan scheduled as it might improve abdominal discomfort If vomits, will consider NGT monitor Endocrine: Diabetes Melllitus - poor control Assessment/Plan: Hgb A1c 12.2, monitor BGMs Novolog sliding scale F.E.N. Fluids: NS @ 125cc/hr Electrolytes: Hypophospho: @ 1.8, started on Phos David Hypomagnesium 1 gram of mag x 1 ordered Hypocalcemia - corrected 9.2 Nutrition: sips of water and ice chips/advance diet as tolerated Prophylaxis: DVT: Lovenox 40mg, SCDs GI: Protonix once daily, Reglan 10 mg q6 Disposition: Patient requires continued inpatient care. full code. Visit type - Emergency Visit Emergency Visit: Yes ED Registration Date: 12/04/16 Care time: The patient presented to the Emergency Department on the above date and was hospitalized for further evaluation of their emergent condition. - New Patient This patient is new to me today: Yes Date on this admission: 12/06/16 - Critical Care Critical Care patient: No - Discharge Referral Referred to [facility] No
[2016-12-06] MEDS: ENOXAPARIN NA (PORCINE) 40 MG/0.4 ML DISP.SYRIN SQ SCH (10:23)
[2016-12-06] MEDS: CEFTRIAXONE 100 ML IVPB SCH (10:25)
[2016-12-06] MEDS: METOCLOPRAMIDE HCL INJECTION 10 MG/2 ML VIAL IVPB SCH ×3 (11:14→21:20)
[2016-12-06] MEDS: KCL 10 MEQ IVPB 100 ML IVPB SCH ×2 (12:27→15:13)
[2016-12-06] MEDS ORDERED: KCL 10 MEQ IVPB 100 ML IVPB SCH (15:15)
[2016-12-06] MEDS ORDERED: MAGNESIUM SULF 50% (8.12 MEQ/2 ML-1 GM VIAL) IVPB ONE ×2 (16:04→18:30)
--- NOTE | 2016-12-06 16:05 | CONSULT ---
Consult Consult Specialty:: Nephrology ( Drs. Stovall/ Ajay) Reason for Consultation:: Many thanks for the consult referral. 56 y/o female admitted with what appears to be acute Pyelonephritis. The patient has h/o recurrent Nephrolithiasis since 1999. Has h/o Nephrolithotripsy. Has also h/o DM2. Renal evaluation for Electrolyte disorders and Nephrocalcinosis. 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: Alzheimer's, CVA, Dementia, Migraine, Multiple Sclerosis, Peripheral Neuropathy, Parkinson's, Seizure, Syncope, TIA, Vertigo, Other Cardio/Vascular: No: AFIB, Aneurysm, Aortic Insufficiency, Aortic Stenosis, CAD , CHF, Deep Vein Thrombosis, HTN, Hyperlipdemia, CT, Mitral Insufficiency, Mitral Stenosis, Murmur, Pulmonary Hypertension, Other Pulmonary: No: Asthma, Bronchitis, Cancer, COPD, O2 Dependent, Pneumonia, Previously Intubated, Pulmonary Embolus, Pulmonary Fibrosis, Sleep Apnea, Other Gastrointestinal: No: Ascites, Cancer, Constipation, Crohn's Disease, Diverticulitis, Diverticulosis, Esophageal Varices, Gastritis, GERD, GI Bleed, Hemorrhoids, Hiatal Hernia, Inflamatory Bowel Disease, Irritable Bowel Disease, Pancreatitis, Peptic Ulcer Disease, Ulcerative Colitis Renal/: Yes: Renal Calculi, UTI ...: No Infectious Disease: No: AIDS, C-Diff, Herpes Zoster, HIV, MRSA, STD's, Tuberculosis, VREF Psych: No: Addictions, Anxiety, Bipolar, Depression, Panic, Psychosis, Schizophrenia Rheumatology: Yes: Other. No: Fibromyalgia, Gout, Lupus, Rheumatoid Arthritis, Sarcoidosis, Vasculitis - Alcohol/Substance Use Hx Alcohol Use: No - Smoking History Smoking history: Never smoked Have you smoked in the past 12 months: No Aproximately how many cigarettes per day: 0 Home Medications - Allergies Allergies/Adverse Reactions: Allergies Allergy/AdvReac Type Severity Reaction Status Date / Time diphenhydramine HCl Allergy fever Verified 12/03/16 18:02 [From Benadryl] - Home Medications Home Medications: Ambulatory Orders Ibuprofen [Motrin -] 600 mg PO TID #21 tablet 01/05/15 Review of Systems - Review of Systems Constitutional: reports: Chills, Fever, Lethargy Eyes: reports: Other. denies: No Symptoms, Blind Spots, Blurred Vision, Double Vision, Eye Pain, Floaters, Photophobia, Recent Change in Vision HENT: reports: No Symptoms Neck: reports: No Symptoms Cardiovascular: reports: No Symptoms. denies: Chest Pain Gastrointestinal: reports: Abdominal Pain Genitourinary: reports: Burning, Flank Pain, Frequency Musculoskeletal: reports: Back Pain Integumentary: reports: No Symptoms Neurological: reports: No Symptoms Physical Exam Vital Signs: Vital Signs Temperature 100.3 F H 12/06/16 15:25 Pulse Rate 90 12/06/16 15:25 Respiratory Rate 20 12/06/16 15:25 Blood Pressure 119/68 12/06/16 09:00 O2 Sat by Pulse Oximetry (%) 98 12/05/16 22:00 Constitutional: Yes: Calm Eyes: Yes: WNL HENT: Yes: WNL Neck: Yes: Supple Cardiovascular: Yes: Regular Rate and Rhythm, S1, S2 Respiratory: Yes: Regular, CTA Bilaterally Gastrointestinal: Yes: Normal Bowel Sounds, Tenderness (Bilateral flanks) Renal/: Yes: CVA Tenderness - Left, CVA Tenderness - Right Musculoskeletal: Yes: Back Pain Labs: CBC, BMP 12/06/16 08:34 12/06/16 07:50 Problem List - Problems (1) Diabetes Code(s): E11.9 - TYPE 2 DIABETES MELLITUS WITHOUT COMPLICATIONS (2) Nephrolithiasis Code(s): N20.0 - CALCULUS OF KIDNEY (3) Pyelonephritis, acute Code(s): N10 - ACUTE PYELONEPHRITIS (4) Renal calculus, bilateral Code(s): N20.0 - CALCULUS OF KIDNEY (5) UTI (lower urinary tract infection) Code(s): N39.0 - URINARY TRACT INFECTION, SITE NOT SPECIFIED (6) Flank pain Code(s): R10.9 - UNSPECIFIED ABDOMINAL PAIN (7) Metabolic acidosis Code(s): E87.2 - ACIDOSIS (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 Will start the patient on K Citrate. Will need detailed w/u in the future, which will be done as outpatient. Will monitor the renal functions with you. Thank you. Amada Stovall MD
[2016-12-06] MEDS ORDERED: PT OWN MED DRAWER 7, Y5N ONE (16:41)
[2016-12-06] MEDS: SODIUM CHLORIDE 0.45%/POT 1,000 ML IV SCH (18:34)
[2016-12-06] MEDS: POTASSIUM CITRATE/CITRIC ACID 2 MEQ/ML ML PO SCH (21:20)
[2016-12-07] MEDS: METOCLOPRAMIDE HCL INJECTION 10 MG/2 ML VIAL IVPB SCH ×4 (02:27→21:53)
[2016-12-07] MEDS: INSULIN SLIDING SCALE (NOVOLOG) 1 VIAL SQ SCH ×4 (05:59→21:30)
[2016-12-07 08:25] LABS: ALBUMIN 2.1 g/dl (3.4-5.0); ANION GAP 13 (8-16); CALCIUM 7.6 mg/dL (8.5-10.1); CO2 23 mmol/L (21-32); CREATININE 0.4 mg/dL (0.55-1.02); GLUCOSE,RANDOM 118 mg/dL (74-106); MAGNESIUM 1.7 mg/dL (1.8-2.4); PHOSPHOROUS 2.2 mg/dL (2.5-4.9); SGOT/AST 23 U/L (15-37); SGPT/ALT 50 U/L (12-78); URIC ACID 3.2 mg/dL (2.6-7.2)
[2016-12-07 08:27] LABS: ALK PHOS 248 U/L (45-117); FREE T4 1.49 ng/dl (0.76-1.46); TOT PROT 5.3 g/dl (6.4-8.2)
[2016-12-07] MEDS ORDERED: MAGNESIUM SULF 50% (8.12 MEQ/2 ML-1 GM VIAL) IVPB ONE (08:45)
[2016-12-07] MEDS ORDERED: PANTOPRAZOLE SODIUM 100 ML IVPB SCH (10:00)
--- NOTE | 2016-12-07 10:33 | PN ---
Physical Exam: SUBJECTIVE: Patient seen and examined. She denies any chills, states she feels better today. She denies abdominal pain, nausea or vomiting. OBJECTIVE: Patient denies abdominal pain, nausea or vomiting > will start on clears + bowel sounds, abdomen soft, non distended No pain on light palpation of abdomen Mag 1.7 - repleted Vital Signs Period Temp Pulse Resp BP Sys/Hemphill Pulse Ox Last 24 Hr 98.6 F-100.3 F 87-90 18-20 122-130/66-75 99 GENERAL: The patient is awake, alert, and fully oriented, in no acute distress. HEAD: Normal with no signs of trauma. EYES: PERRL, extraocular movements intact, sclera anicteric, conjunctiva clear. No ptosis. ENT: Ears normal, nares patent, oropharynx clear without exudates, moist mucous membranes. NECK: Trachea midline, full range of motion, supple. LUNGS: Breath sounds equal, clear to auscultation bilaterally, no wheezes, no crackles, no accessory muscle use. ABDOMEN: Soft, nontender, nondistended, normoactive bowel sounds, denies abdominal pain, nausea or vomiting. EXTREMITIES: 2+ pulses, warm, well-perfused, no edema. NEUROLOGICAL: Normal speech, gait not observed. PSYCH: Normal mood, normal affect. SKIN: Warm, dry, normal turgor, no rashes or lesions noted Laboratory Results - last 24 hr 12/06/16 12/06/16 12/06/16 11:17 16:35 21:17 Sodium Potassium Chloride Carbon Dioxide Anion Gap BUN Creatinine Creat Clearance w eGFR POC Glucometer 130 113 120 Random Glucose Uric Acid Calcium Phosphorus Magnesium Total Bilirubin AST ALT Alkaline Phosphatase Total Protein Albumin Free T4 12/07/16 12/07/16 05:53 07:10 Sodium 139 Potassium 3.5 Chloride 103 Carbon Dioxide 23 Anion Gap 13 BUN 5 L D Creatinine 0.4 L D Creat Clearance w eGFR > 60 POC Glucometer 130 Random Glucose 118 H Uric Acid 3.2 Calcium 7.6 L Phosphorus 2.2 L D Magnesium 1.7 L Total Bilirubin 1.0 D AST 23 D ALT 50 D Alkaline Phosphatase 248 H D Total Protein 5.3 L Albumin 2.1 L Free T4 1.49 H Active Medications Generic Name Dose Route Start Last Admin Trade Name Freq PRN Reason Stop Dose Admin Acetaminophen 650 mg 12/04/16 16:34 12/05/16 03:20 Tylenol - PO 650 mg Q6H PRN Administration FEVER OR PAIN Acetaminophen 650 mg 12/05/16 17:19 12/05/16 17:02 Tylenol Suppository - [place] 650 mg Q6H PRN Administration FEVER OR PAIN Enoxaparin Sodium 40 mg 12/04/16 18:00 12/06/16 10:23 Lovenox - SQ 40 mg DAILY LUANN Administration Ceftriaxone Sodium 100 mls @ 200 mls/hr 12/05/16 10:00 12/06/16 10:25 Rocephin 2gm Ivpb (Pre-Docked) IVPB 200 mls/hr DAILY LUANN Administration Potassium Chloride/Sodium Chloride 1,000 mls @ 42 mls/hr 12/06/16 16:00 18:34 1/2ns+20meq Kcl IV 42 mls/hr ASDIR LUANN Administration Pantoprazole Sodium 100 mls @ 200 mls/hr 12/07/16 10:00 Protonix 40mg Ivpb (Pre-Docked) IVPB DAILY LUANN Insulin Aspart 1 vial 12/04/16 07:00 12/07/16 05:59 Novolog Vial Sliding Scale - SQ Not Given ACHS LUANN Protocol Metoclopramide HCl 10 mg 12/06/16 10:15 12/07/16 09:02 Reglan Injection - IVPB 10 mg Q6H-IV LUANN Administration Potassium Citrate/Citric Acid 20 meq 12/06/16 16:00 12/06/16 21:20 Cytra-K - PO 20 meq DAILY LUANN Administration Potassium Phos/Sodium Phos 1 packet 12/06/16 22:00 12/06/16 21:21 Phos-Nak Packet - PO 1 packet BID LUANN Administration ASSESSMENT/PLAN: Patient is a 55 year old female with a significant past medical history of renal calculi, lithotripsy and diabetes mellitus. She was admitted on 2016 for sepsis secondary to UTI and pyelonephritis. Imagin/14 CT of abdomen/pelvis: mild proximal small bowel dilitation, ileus v. early SBO, 2mm urinary bladder calculus, left perirenal stranding; enlarged left periaortic lymph node, 3 month followup essential. bilateral medullary nephrocalcinosis 12/05 KUB FUA: possible ileus vs sbo 12/06 KUB: bilateral renal calculi, non specific bowel pattern, slightly less distention ID Severe sepsis likely secondary to UTI/Pyelonephritis - improving Assessment/Plan: Fever curve trending down, low grade fevers overnight tmax 100.5F WBC within normal limits, not hypotensive On Ceftriaxone 2 gram daily started 12/05 Urine cultures with no growth to date Blood cultures with neg bacilli, awaiting sensitivities Received Gentamicin x 1 by ID on 12/05 Monitor BP, wbc, fever curve : Urinary retention Assessment/Plan: Mcdaniel for post void residual Monitor intake and output Bilateral medullary nephrocalcinosis Assessment/Plan: Seen on CT scan and ultrasound Renal consulted, started pt on Cytra K GI: SBO vs. Ileus - resolving Assessment/Plan: No abdominal pain on exam, will start on clears Continue Reglan as ordered, monitor on clear liquid diet Endocrine: Diabetes Melllitus - poor control Assessment/Plan: Hgb A1c 12.2, monitor BGMs Novolog sliding scale F.E.N. Fluids: 1/2 NS 20MEQ @ 42cc/hr Electrolytes: Hypophospho: improving @ 2.2.on Phos David Hypomagnesium 1 gram of mag x 1 ordered - now mag 1.7 Hypocalcemia - corrected 9.2 Nutrition: clears Prophylaxis: DVT: Lovenox 40mg, SCDs GI: Protonix once daily, Reglan 10 mg q6 Disposition: Patient requires continued inpatient care. full code. Visit type - Emergency Visit Emergency Visit: Yes ED Registration Date: 12/04/16 Care time: The patient presented to the Emergency Department on the above date and was hospitalized for further evaluation of their emergent condition. - New Patient This patient is new to me today: Yes Date on this admission: 12/07/16 - Critical Care Critical Care patient: No - Discharge Referral Referred to [facility] No
[2016-12-07] MEDS: CEFTRIAXONE 100 ML IVPB SCH (10:55)
[2016-12-07] MEDS: ENOXAPARIN NA (PORCINE) 40 MG/0.4 ML DISP.SYRIN SQ SCH (10:57)
[2016-12-07] MEDS: NAPH,MB-DB/K PH,MBDB POWDER PACKET PO SCH ×3 (10:57→21:19)
[2016-12-07] MEDS ORDERED: PT OWN MED DRAWER 7, Y5N ONE (10:59)
[2016-12-07] MEDS: POTASSIUM CITRATE/CITRIC ACID 2 MEQ/ML ML PO SCH (11:01)
[2016-12-07] MEDS: TAMSULOSIN HCL 0.4 MG CAP.ER.24H (FP) PO SCH (12:00)
--- NOTE | 2016-12-07 12:01 | PN ---
Progress Note (short form) - Note Progress Note: Renal Follow up for Nephrolithiasis and Pylonephritis Pt seen and examined at the bedside no acute complaints denies any abd or flank pain presently haq in place no sob or chest pain Vital Signs Temperature 99.5 F 12/07/16 09:52 Pulse Rate 87 12/07/16 09:52 Respiratory Rate 20 12/07/16 09:52 Blood Pressure 124/66 12/07/16 09:52 O2 Sat by Pulse Oximetry (%) 99 12/06/16 22:28 Intake & Output 12/04/16 12/05/16 12/06/16 12/07/16 23:59 23:59 23:59 23:59 Intake Total 400 4200 500 Output Total 736 058 1277 1400 Balance -200 3500 -1900 -900 Weight 107 lb 6.4 oz Gen: NAD, awake and alert HEENT: NC/AT, MM CVS: RRR, No M/R Lungs: CTA, no rales or wheeze Abd: soft NT/ND Ext: No edema : haq in place CBC, BMP 12/06/16 08:34 12/07/16 07:10 Laboratory Tests 12/06/16 12/07/16 07:50 07:10 Uric Acid 3.2 Calcium 7.6 L Phosphorus 1.8 L D 2.2 L D Magnesium 1.7 L Free T4 1.49 H Current Medications Acetaminophen (Tylenol -) 650 mg PO Q6H PRN PRN Reason: FEVER OR PAIN Last Admin: 12/05/16 03:20 Dose: 650 mg Acetaminophen (Tylenol Suppository -) 650 mg [place] Q6H PRN PRN Reason: FEVER OR PAIN Last Admin: 12/05/16 17:02 Dose: 650 mg Enoxaparin Sodium (Lovenox -) 40 mg SQ DAILY [facility] Last Admin: 12/07/16 10:57 Dose: 40 mg Ceftriaxone Sodium (Rocephin 2gm Ivpb (Pre-Docked)) 100 mls @ 200 mls/hr IVPB DAILY [facility] Last Admin: 12/07/16 10:55 Dose: 200 mls/hr Potassium Chloride/Sodium Chloride (1/2ns+20meq Kcl) 1,000 mls @ 42 mls/hr IV ASDIR [facility] Last Admin: 12/06/16 18:34 Dose: 42 mls/hr Pantoprazole Sodium (Protonix 40mg Ivpb (Pre-Docked)) 100 mls @ 200 mls/hr IVPB DAILY [facility] Insulin Aspart (Novolog Vial Sliding Scale -) 1 vial SQ ACHS [facility] PRN Reason: Protocol Last Admin: 12/07/16 11:20 Dose: Not Given Metoclopramide HCl (Reglan Injection -) 10 mg IVPB Q6H-IV [facility] Last Admin: 12/07/16 09:02 Dose: 10 mg Potassium Citrate/Citric Acid (Cytra-K -) 20 meq PO DAILY LUANN Last Admin: 12/07/16 11:01 Dose: 20 meq Potassium Phos/Sodium Phos (Phos-Nak Packet -) 1 packet PO BID [facility] Last Admin: 12/07/16 10:57 Dose: 1 packet Tamsulosin HCl (Flomax -) 0.8 mg PO DAILY@0830 [facility] A/P 56 year old woman with PMhx of Nephrocalcinosis, DM Type 2 presented with flank pain and found to have nephrocalcinosis/renal colic with multiple electrolyte abnormalities #Nephrocalciosis with pylonephritis underlying etiology ? Type 1 RTA (low serum K, low bicarb, alkalotic urine) stated on K-citra (helps to decrease formation of calcium oxalate stones - most common) started flomax today to help facilitate passage of stones down ureter 2mm stones should pass spontaneously continue Abx as per ID #Hypokalemia/Hypophosphatemia/Hypomagnesemia continue IVF with KCL s/p Mg sulfate 2g IVPB D/c PPI and start H2 jane (PPI decreased Mg absorption) continue Neutraphos (increase to TID) Carlos Robert DO
--- NOTE | 2016-12-07 14:23 | PN ---
Progress Note (short form) - Note Progress Note: feels better Vital Signs Period Temp Pulse Resp BP Sys/Hemphill Pulse Ox Last 24 Hr 98.6 F-100.3 F 87-90 18-20 122-130/66-75 99 cor-rrr lungs clear abd soft,nt +CVAT ext no edema CBC, BMP 12/06/16 08:34 12/07/16 07:10 Microbiology 12/03/16 20:15 Blood - Peripheral Venous Blood Culture - Preliminary Lactose Fermenting Neg Bacilli 12/03/16 20:15 Blood - Peripheral Venous Blood Culture - Preliminary NO GROWTH OBTAINED AFTER 72 HOURS, INCUBATION TO CONTINUE FOR 2 DAYS. 12/03/16 20:15 Urine - Urine Clean Catch Urine Culture - Final NO GROWTH OBTAINED a/p pyelonephritis gram negative bacteremia nephrolithiasis continue ceftriaxone followup cultures
[2016-12-07] MEDS: SODIUM CHLORIDE 0.45%/POT 1,000 ML IV SCH (16:39)
[2016-12-07 16:40] LABS: MCHC 35.7 g/dl (32.0-36.0); MEAN CELL VOLUME 81.2 fl (80-96); MEAN PLT VOLUME 7.9 fl (7.5-11.1); PLATELET COUNT 206 K/MM3 (134-434); RDW 13.3 % (11.6-15.6); WHITE BLOOD COUNT 5.9 K/mm3 (4.0-10.0)
[2016-12-07] MEDS ORDERED: INSULIN (NOVOLOG) ASPART 100 UNITS/ML 10ML VIAL ONE (21:29)
[2016-12-07] MEDS ORDERED: INSULIN DETEMIR 100 UNITS/ML MDV SQ SCH (22:00)
[2016-12-07 23:10] LABS: HYPOCHROMIA 1+
[2016-12-08] MEDS: METOCLOPRAMIDE HCL INJECTION 10 MG/2 ML VIAL IVPB SCH ×3 (02:37→14:04)
[2016-12-08] MEDS ORDERED: INSULIN (NOVOLOG) ASPART 100 UNITS/ML 10ML VIAL ONE ×2 (06:03→11:20)
[2016-12-08] MEDS: INSULIN SLIDING SCALE (NOVOLOG) 1 VIAL SQ SCH ×3 (06:04→16:44)
[2016-12-08] MEDS: NAPH,MB-DB/K PH,MBDB POWDER PACKET PO SCH ×2 (06:05→14:04)
[2016-12-08 06:07] LABS: FREE T3 2.2 pg/mL (2.0-4.4)
[2016-12-08 08:15] LABS: BASOPHIL 0.4 % (0-2.0); EOSINOPHIL 0.6 % (0-4.5); MCH 29.4 pg (25.7-33.7); MCHC 36.3 g/dl (32.0-36.0); MEAN PLT VOLUME 7.5 fl (7.5-11.1); NEUTROPHILS 70.5 % (42.8-82.8); PLATELET COUNT 217 K/MM3 (134-434); RDW 13.1 % (11.6-15.6); WHITE BLOOD COUNT 5.2 K/mm3 (4.0-10.0)
[2016-12-08] MEDS: TAMSULOSIN HCL 0.4 MG CAP.ER.24H (FP) PO SCH (08:22)
[2016-12-08 08:53] LABS: ALBUMIN 2.2 g/dl (3.4-5.0); ALK PHOS 240 U/L (45-117); ANION GAP 9 (8-16); BILIRUBIN,TOTAL 0.8 mg/dL (0.2-1.0); CALCIUM 7.8 mg/dL (8.5-10.1); CO2 29 mmol/L (21-32); CREATININE 0.4 mg/dL (0.55-1.02); GLUCOSE,RANDOM 203 mg/dL (74-106); MAGNESIUM 1.8 mg/dL (1.8-2.4); PHOSPHOROUS 2.4 mg/dL (2.5-4.9); SGOT/AST 22 U/L (15-37); SGPT/ALT 41 U/L (12-78); TOT PROT 5.5 g/dl (6.4-8.2)
[2016-12-08] MEDS ORDERED: RANITIDINE HCL 150 MG TABLET (FP) PO SCH (10:00)
[2016-12-08] MEDS ORDERED: PT OWN MED DRAWER 7, Y5N ONE (10:12)
[2016-12-08] MEDS: CEFTRIAXONE 100 ML IVPB SCH (10:19)
[2016-12-08] MEDS: ENOXAPARIN NA (PORCINE) 40 MG/0.4 ML DISP.SYRIN SQ SCH (10:20)
[2016-12-08] MEDS: POTASSIUM CITRATE/CITRIC ACID 2 MEQ/ML ML PO SCH (10:20)
--- NOTE | 2016-12-08 10:34 | PN ---
Progress Note (short form) - Note Progress Note: Renal Follow up for Nephrolithiasis and Pylonephritis Pt seen and examined at the bedside no complaints no sob or chest pain no fever or chills Vital Signs Temperature 98.4 F 12/08/16 09:05 Pulse Rate 82 12/08/16 09:05 Respiratory Rate 20 12/08/16 09:05 Blood Pressure 123/72 12/08/16 09:05 O2 Sat by Pulse Oximetry (%) 98 12/07/16 20:26 Intake & Output 12/05/16 12/06/16 12/07/16 12/08/16 23:59 23:59 23:59 23:59 Intake Total 4200 1928 500 Output Total 700 1900 2800 1000 Balance 3500 -1900 -872 -500 Gen: NAD, awake and alert HEENT: NC/AT, MM CVS: RRR, No M/R Lungs: CTA, no rales or wheeze Abd: soft NT/ND Ext: No edema : haq in place CBC, BMP 12/08/16 06:30 12/08/16 06:20 Laboratory Tests 12/08/16 06:20 Calcium 7.8 L Phosphorus 2.4 L Albumin 2.2 L Current Medications Acetaminophen (Tylenol -) 650 mg PO Q6H PRN PRN Reason: FEVER OR PAIN Last Admin: 12/05/16 03:20 Dose: 650 mg Acetaminophen (Tylenol Suppository -) 650 mg [place] Q6H PRN PRN Reason: FEVER OR PAIN Last Admin: 12/05/16 17:02 Dose: 650 mg Enoxaparin Sodium (Lovenox -) 40 mg SQ DAILY [facility] Last Admin: 12/08/16 10:20 Dose: 40 mg Ceftriaxone Sodium (Rocephin 2gm Ivpb (Pre-Docked)) 100 mls @ 200 mls/hr IVPB DAILY [facility] Last Admin: 12/08/16 10:19 Dose: 200 mls/hr Potassium Chloride/Sodium Chloride (1/2ns+20meq Kcl) 1,000 mls @ 42 mls/hr IV ASDIR [facility] Last Admin: 12/07/16 16:39 Dose: 42 mls/hr Insulin Aspart (Novolog Vial Sliding Scale -) 1 vial SQ ACHS [facility] PRN Reason: Protocol Last Admin: 12/08/16 06:04 Dose: 2 units Insulin Detemir (Levemir Vial) 5 units SQ HS [facility] Last Admin: 12/07/16 21:30 Dose: 5 units Metoclopramide HCl (Reglan Injection -) 10 mg IVPB Q6H-IV [facility] Last Admin: 12/08/16 08:22 Dose: 10 mg Potassium Citrate/Citric Acid (Cytra-K -) 20 meq PO DAILY [facility] Last Admin: 12/08/16 10:20 Dose: 20 meq Potassium Phos/Sodium Phos (Phos-Nak Packet -) 1 packet PO TID [facility] Last Admin: 12/08/16 06:05 Dose: 1 packet Ranitidine HCl (Zantac -) 150 mg PO DAILY [facility] Last Admin: 12/08/16 10:20 Dose: 150 mg Tamsulosin HCl (Flomax -) 0.8 mg PO DAILY@0830 [facility] Last Admin: 12/08/16 08:22 Dose: 0.8 mg A/P 56 year old woman with PMhx of Nephrocalcinosis, DM Type 2 presented with flank pain and found to have nephrocalcinosis/renal colic with multiple electrolyte abnormalities #Nephrocalciosis with pylonephritis Continue K- citra and Flomax Ceftriaxone as per ID D/c Jonas today outpatient stone studies #Hypokalemia/Hypophosphatemia/Hypomagnesemia can d/c IVF if pt tolerating diet Continue Neutraphos TID for now Mg is ok Today Trend electrolytes daily Carlos Robert DO
--- NOTE | 2016-12-08 11:10 | PN ---
Progress Note (short form) - Note Progress Note: day #5 antibiotics doing well Vital Signs Period Temp Pulse Resp BP Sys/Hemphill Pulse Ox Last 24 Hr 98.4 F-98.8 F 81-93 18-20 117-124/64-72 98 cor-rrr lungs clear abd soft,nt ext no edema CBC, BMP 12/08/16 06:30 12/08/16 06:20 Microbiology 12/03/16 20:15 Blood - Peripheral Venous Blood Culture - Final Klebsiella Pneumoniae 12/03/16 20:15 Blood - Peripheral Venous Blood Culture - Preliminary NO GROWTH OBTAINED AFTER 96 HOURS, INCUBATION TO CONTINUE FOR 1 DAYS. 12/03/16 20:15 Urine - Urine Clean Catch Urine Culture - Final NO GROWTH OBTAINED a/p pyelonephritis klebsiella bacteremia/uti nephrolithiasis can switch to po levaquin(she has it at home- prescribed by ED) day #5 finish another week po levaquin please call back if needed
[2016-12-08 14:15] LABS: CALCIUM 7.7 mg/dL (8.7-10.2)
[2016-12-08 14:44] VITALS: BP 112/63; PULSE 92; TEMP 98.1
--- NOTE | 2016-12-08 15:57 | DS ---
Physical Exam: SUBJECTIVE: Patient seen and examined. . Pt denies flank pain, fever, chills. Tolerating diet, no n/v. OBJECTIVE: Events: - Mcdaniel pulled this AM, + void Vital Signs Period Temp Pulse Resp BP Sys/Hemphill Pulse Ox Last 24 Hr 98.1 F-98.8 F 81-93 18-20 112-123/63-72 98 PHYSICAL EXAM Neuro: alert, awake, cn 2-12intact Pulm: CTAB CV: s1 s2 rrr no mrg Abd: s nt nd + bs Ext: warm,no le edema Laboratory Results - last 24 hr 12/07/16 12/07/16 12/07/16 07:10 15:30 16:23 WBC 5.9 RBC 3.93 Hgb 11.4 Hct 31.9 L MCV 81.2 MCHC 35.7 RDW 13.3 Plt Count 206 D MPV 7.9 Neutrophils % 67.0 Lymphocytes % 29.0 D Monocytes % 4.0 Eosinophils % Basophils % Hypochromic-Microcytic 1+ Sodium Potassium Chloride Carbon Dioxide Anion Gap BUN Creatinine Creat Clearance w eGFR POC Glucometer 310 Random Glucose Calcium 7.7 L Phosphorus Magnesium Total Bilirubin AST ALT Alkaline Phosphatase Total Protein Albumin Free T3 2.2 Total T3 81.00 PTH Intact 42 PTH Intact Intraop 0 m 12/07/16 12/08/16 12/08/16 21:21 05:58 06:20 WBC RBC Hgb Hct MCV MCHC RDW Plt Count MPV Neutrophils % Lymphocytes % Monocytes % Eosinophils % Basophils % Hypochromic-Microcytic Sodium 139 Potassium 3.7 Chloride 101 Carbon Dioxide 29 D Anion Gap 9 BUN 4 L Creatinine 0.4 L Creat Clearance w eGFR > 60 POC Glucometer 257 182 Random Glucose 203 H D Calcium 7.8 L Phosphorus 2.4 L Magnesium 1.8 Total Bilirubin 0.8 AST 22 ALT 41 Alkaline Phosphatase 240 H Total Protein 5.5 L Albumin 2.2 L Free T3 Total T3 PTH Intact PTH Intact Intraop 0 m 12/08/16 12/08/16 06:30 11:12 WBC 5.2 RBC 4.03 Hgb 11.8 Hct 32.7 MCV 81.0 MCHC 36.3 H RDW 13.1 Plt Count 217 MPV 7.5 Neutrophils % 70.5 Lymphocytes % 16.0 D Monocytes % 12.5 H D Eosinophils % 0.6 Basophils % 0.4 Hypochromic-Microcytic Sodium Potassium Chloride Carbon Dioxide Anion Gap BUN Creatinine Creat Clearance w eGFR POC Glucometer 306 Random Glucose Calcium Phosphorus Magnesium Total Bilirubin AST ALT Alkaline Phosphatase Total Protein Albumin Free T3 Total T3 PTH Intact PTH Intact Intraop 0 m HOSPITAL COURSE: Date of Admission:12/04/16 Date of Discharge: 12/08/16 Minutes to complete discharge: 35 Discharge Summary Reason For Visit: PYELENOPHRITIS/LOWER UTI Current Active Problems DVT prophylaxis (Acute) Dehydration (Acute) Diabetes (Acute) Ileus (Acute) Ketonuria (Acute) Metabolic acidosis (Acute) Nephrolithiasis (Acute) Pyelonephritis (Acute) Pyelonephritis, acute (Acute) Renal calculus, bilateral (Acute) Renal tubular acidosis (Acute) UTI (lower urinary tract infection) (Acute) Hospital Course: Initial Hospital Course: Briefly, this 56 year old female with a past medical history of Diabetes Mellitus II, recurrent Nephrolithiasis since 1999 with h/o Nephrolithotripsy admitted with fever, mid abdominal pain, and bilateral flank pain x 1 day. On 12/03 seen in the ED for dysuria- Dx- UTI, treated with x1 dose ceftriaxone and sent home with Rx- Levaquin. She re presented with reported with fever, N/V, abdominal/flank pain and continued with dysuria. Subsequent Hospital Course/Progress Note/Discharge Summary by a/p: Assessment: 56 year old woman with PMhx of Nephrocalcinosis, DM Type 2 presented with flank pain and found to have nephrocalcinosis/renal colic with multiple electrolyte abnormalities Plan: 1. Nephrocalciosis with pylonephritis - Started on K- citra 20meq daily; to continue - Started daily flomax; to continue - Outpatient stone studies, urology (referral enclosed) - Follow up with Renal (referral enclosed) 2. Klebsiella Bacteremia/UTI - s/p ceftriaxone 5 days - Home with levaquin x7 week more (can complete course rx in ED) 3. Hypokalemia/Hypophosphatemia/Hypomagnesemia - Resolved - Continue Neutraphos BID x2 days 4. Ileus vs Early SBO - Resolved, tolerating PO Dispo: - Home with meds above and above follow up pt understands and agrees to above plan Condition: Stable - Instructions Diet, Activity, Other Instructions: Please return to the ED for any new, persistent, or worsening symptoms. Follow up with your PCP in 1 week. Follow up with Kidney doctor in 1 week (referral enclosed) for continued follow up with your electrolytes Followup with Urologist as out pt for management of stones (referral enclosed) Take medications as directed on home medication list Complete antibiotics as directed and until completed continue the Levaquin 500mg daily as prescribed on 12/03 in ED Referrals: Antonio Linares MD [Staff Physician] - Carlos Robert MD [Staff Physician] - Disposition: HOME - Home Medications Comprehensive Discharge Medication List: Ambulatory Orders Levofloxacin [Levaquin -] 500 mg PO DAILY #6 tablet 12/08/16 Naph,Mb-Db/K pH,Mbdb [PHOS-NaK PACKET -] 1 packet PO BID #4 pow 12/08/16 Potassium Citrate/Citric Acid [Cytra-K -] 20 meq PO DAILY #30 ml 12/08/16 Tamsulosin HCl [Flomax] 0.4 mg PO DAILY #30 capsule 12/08/16 This patient is new to me today: Yes Date on this admission: 12/08/16 Emergency Visit: Yes ED Registration Date: 12/04/16 Care time: The patient presented to the Emergency Department on the above date and was hospitalized for further evaluation of their emergent condition. Critical Care patient: No - Discharge Referral Referred to [facility] No
== END 2016-12-08 16:59 | disposition home or self-care (01) | DRG 463 ==
LOC: JER 17:57 → INTOOBSV 22:42 → OBSVTOIN 22:42 → JERBED 22:42 → UNDOADMOB 22:42 → J6S 12-04 01:55 → JERBED 12-04 01:55 → J6S 12-04 17:37 → JERBED 12-04 17:37 → OBSVTOIN 12-04 17:37
PROVIDERS: ADMIT Internal Medicine; ATTEND Nurse Practitioner Acute Care
DX: N10 Acute pyelonephritis (principal); K56.60 Unspecified intestinal obstruction; E87.8 Other disorders of electrolyte and fluid balance, not elsewhere classified; E87.2 Acidosis; E83.39 Other disorders of phosphorus metabolism; E11.65 Type 2 diabetes mellitus with hyperglycemia; E83.42 Hypomagnesemia; E83.51 Hypocalcemia; E83.59 Other disorders of calcium metabolism; N20.0 Calculus of kidney; K56.7 Ileus, unspecified; E86.0 Dehydration; E87.6 Hypokalemia; B96.1 Klebsiella pneumoniae [K. pneumoniae] as the cause of diseases classified elsewhere; R33.8 Other retention of urine; N29 Other disorders of kidney and ureter in diseases classified elsewhere; N25.89 Other disorders resulting from impaired renal tubular function
CPT/HCPCS: 36415; 71010-TC; 74020-TC; 74176-TC; 76775-TC; 76856-TC; 80048; 80053; 81003; 81015; 82009; 82310; 82550; 82803; 83036; 83605; 83735; 83970; 84100; 84439; 84480; 84481; 84484; 84550; 85025; 85610; 85730; 86038; 86850; 86900; 86901; 87040; 87086; 87186; 93005; 93010; 99285-25; J3480

== ENCOUNTER 2017-09-29 22:40 | Emergency (ER) | payer OTHER ==
[2017-09-29 23:03] VITALS: BP 113/70; PULSE 99; TEMP 99.2; BMI 20.9
--- NOTE | 2017-09-29 23:33 | PDOC ---
History of Present Illness - General History Source: Patient <David Kirkpatrick - Last Filed: 09/29/17 23:40> - History of Present Illness Initial Comments: 09/29/17 23:42 The patient is a 56 year old female, with a significant past medical history of IDDM (currently not on medications), renal calculi s/p lithotripsy, who presents to the emergency department with nasal congestion, sinus pressure, left ear pain, and productive cough for about 1 week. She reports feeling sore to the area surrounding her nose. She reports her cough is productive of green sputum. She denies hemoptysis. She reportedly took Tylenol with no relief of her symptoms. The patient denies chest pain, shortness of breath, headache and dizziness. The patient denies fever, chills, nausea, vomit, diarrhea and constipation. The patient denies dysuria, frequency, urgency and hematuria. Allergies: diphenhydramine HCl PCP - none <Kateryna Parrish - Last Filed: 09/30/17 00:03> - General Chief Complaint: Respiratory Stated Complaint: COLD SYMPTOMS Time Seen by Provider: 09/29/17 23:01 Past History - Past Medical History Diabetes: Yes Kidney Stones: Yes - Suicide/Smoking/Psychosocial Hx Smoking Status: No Smoking History: Never smoked Have you smoked in the past 12 months: No Number of Cigarettes Smoked Daily: 0 Hx Alcohol Use: No Drug/Substance Use Hx: No Substance Use Type: None <Angelika Kirkpatrickan - Last Filed: 09/29/17 23:40> <Kateryna Parrish - Last Filed: 09/30/17 00:03> - Past Medical History Allergies/Adverse Reactions: Allergies Allergy/AdvReac Type Severity Reaction Status Date / Time diphenhydramine HCl Allergy fever Verified 09/29/17 22:56 [From Benadryl] Home Medications: Ambulatory Orders Azithromycin [Zithromax -] 250 mg PO UTDICT #6 tab 09/29/17 Pseudoephedrine HCl [Sudafed] 30 mg PO Q6H #20 tablet 09/29/17 Review of Systems - Review of Systems Able to Perform ROS?: Yes Comments:: 09/29/17 23:42 CONSTITUTIONAL: Absent: fever, chills, diaphoresis, generalized weakness, malaise, loss of appetite HEENT: nasal congestion and sinus pressure. Absent: rhinorrhea, throat pain, throat swelling, difficulty swallowing, mouth swelling, ear pain, eye pain, visual Changes CARDIOVASCULAR: Absent: chest pain, syncope, palpitations, irregular heart rate, lightheadedness , peripheral edema RESPIRATORY: (+) cough, Absent: shortness of breath, dyspnea with exertion, orthopnea, wheezing, stridor, hemoptysis GASTROINTESTINAL: Absent: abdominal pain, abdominal distension, nausea, vomiting, diarrhea, constipation, melena, hematochezia GENITOURINARY: Absent: dysuria, frequency, urgency, hesitancy, hematuria, flank pain, genital pain MUSCULOSKELETAL: Absent: myalgia, arthralgia, joint swelling SKIN: Absent: rash, itching, pallor HEMATOLOGIC/IMMUNOLOGIC: Absent: easy bleeding, easy bruising, lymphadenopathy, frequent infections ENDOCRINE: Absent: unexplained weight gain, unexplained weight loss, heat intolerance, cold intolerance NEUROLOGIC: Absent: headache, focal weakness or paresthesias, dizziness, unsteady gait, seizure, mental status changes, bladder or bowel incontinence PSYCHIATRIC: Absent: anxiety, depression, suicidal or homicidal ideation, hallucinations. <Kateryna Parrish - Last Filed: 09/30/17 00:03> *Physical Exam - Vital Signs Last Vital Signs Temp Pulse Resp BP Pulse Ox 99.2 F 99 H 18 113/70 99 09/29/17 22:56 09/29/17 22:56 09/29/17 22:56 09/29/17 22:56 09/29/17 22:56 <David Kirkpatrick - Last Filed: 09/29/17 23:40> - Vital Signs Last Vital Signs Temp Pulse Resp BP Pulse Ox 99.2 F 99 H 18 113/70 99 09/29/17 22:56 09/29/17 22:56 09/29/17 22:56 09/29/17 22:56 09/29/17 22:56 - Physical Exam Comments: 09/29/17 23:43 GENERAL: Well developed, well nourished. Awake and alert. No acute distress. HEENT: (+) discharge from left medial canthus, posterior oropharynx is erythematous, frontal sinus tenderness to palpation. Normocephalic, atraumatic. PERRLA, EOMI. No conjunctival pallor. Sclera are non-icteric. Moist mucous membranes. NECK: Supple. Full ROM. No JVD. Carotid pulses 2+ and symmetric, without bruits. No thyromegaly. No lymphadenopathy. CARDIOVASCULAR: Regular rate and rhythm. No murmurs, rubs, or gallops. Distal pulses are 2+ and symmetric. PULMONARY: No evidence of respiratory distress. Lungs clear to auscultation bilaterally. No wheezing, rales or rhonchi. ABDOMINAL: Soft. Non-tender. Non-distended. No rebound or guarding. No organomegaly. Normoactive bowel sounds. MUSCULOSKELETAL Normal range of motion at all joints. No bony deformities or tenderness. No CVA tenderness. EXTREMITIES: No cyanosis. No clubbing. No edema. No calf tenderness. SKIN: Warm and dry. Normal capillary refill. No rashes. No jaundice. NEUROLOGICAL: Alert, awake, appropriate. Cranial nerves 2-12 intact. Normoreflexic in the upper and lower extremities. Normal speech. Toes are down-going bilaterally. Gait is normal without ataxia. PSYCHIATRIC: Cooperative. Good eye contact. Appropriate mood and affect. <Kateryna Parrish - Last Filed: 09/30/17 00:03> *DC/Admit/Observation/Transfer - Discharge Dispostion Admit: No <David Kirkpatrick - Last Filed: 09/29/17 23:40> - Attestations Scribe Attestion: 09/30/17 00:02 Documentation prepared by Kateryna Parrish, acting as medical surgery nurse for David Kirkpatrick DO. <Kateryna Parrish - Last Filed: 09/30/17 00:03> Diagnosis at time of Disposition: Sinusitis Qualifiers: Sinusitis location: frontal Chronicity: acute Recurrence: not specified as recurrent Qualified Code(s): J01.10 - Acute frontal sinusitis, unspecified - Discharge Dispostion Disposition: HOME - Prescriptions Prescriptions: Azithromycin [Zithromax -] 250 mg PO UTDICT #6 tab Pseudoephedrine HCl [Sudafed] 30 mg PO Q6H #20 tablet - Referrals Referrals: Stephanie Monae MD [Staff Physician] - - Patient Instructions Printed Discharge Instructions: DI for Sinusitis
[2017-09-29] MEDS ORDERED: AZITHROMYCIN 250 MG TABLET PO STA (23:37)
[2017-09-29] MEDS ORDERED: PSEUDOEPHEDRINE HCL 30 MG TABLET PO STA (23:38)
[2017-09-29] MEDS ORDERED: AZITHROMYCIN 500 MG TABLET ONE (23:48)
[2017-09-29] MEDS ORDERED: PSEUDOEPHEDRINE HCL 60 MG TABLET ONE (23:49)
== END 2017-09-30 00:18 | disposition home or self-care (01) ==
LOC: JERFT 22:40 → JER 22:40
DX: J01.10 Acute frontal sinusitis, unspecified (principal)
CPT/HCPCS: 99281-25

== ENCOUNTER 2017-12-21 10:52 | Emergency (ER) | payer OTHER ==
[2017-12-21 11:19] VITALS: TEMP 98.3; BMI 20.9
--- NOTE | 2017-12-21 11:29 | PDOC ---
History of Present Illness - General Chief Complaint: Blood Sugar Problem Stated Complaint: EYE PROBLEM Time Seen by Provider: 12/21/17 11:29 Past History - Past Medical History Allergies/Adverse Reactions: Allergies Allergy/AdvReac Type Severity Reaction Status Date / Time diphenhydramine HCl Allergy fever Verified 12/21/17 11:08 [From Benadryl] Home Medications: Ambulatory Orders Azithromycin [Zithromax -] 250 mg PO UTDICT #6 tab 09/29/17 Pseudoephedrine HCl [Sudafed] 30 mg PO Q6H #20 tablet 09/29/17 Cephalexin Monohydrate [Keflex -] 500 mg PO BID #14 capsule 12/21/17 COPD: No Diabetes: Yes Kidney Stones: Yes - Suicide/Smoking/Psychosocial Hx Smoking Status: No Smoking History: Never smoked Have you smoked in the past 12 months: No Number of Cigarettes Smoked Daily: 0 Information on smoking cessation initiated: No Hx Alcohol Use: No Drug/Substance Use Hx: No Substance Use Type: None *Physical Exam - Vital Signs Last Vital Signs Temp Pulse Resp BP Pulse Ox 98.3 F 85 16 110/65 98 12/21/17 11:08 12/21/17 11:08 12/21/17 11:08 12/21/17 11:08 12/21/17 11:08 ED Treatment Course - LABORATORY CBC & Chemistry Diagram: 12/21/17 11:50 12/21/17 11:50 *DC/Admit/Observation/Transfer Diagnosis at time of Disposition: UTI (lower urinary tract infection), Pain, eye, right - Discharge Dispostion Disposition: HOME Condition at time of disposition: Stable Admit: No - Referrals Referrals: Felipe Babin MD [Staff Physician] - - Patient Instructions Printed Discharge Instructions: DI for Eye Pain Additional Instructions: You have a urinary tract infection Please take your antibiotics as prescribed Drink plenty of fluids You also have R eye pain. It is important that you keep your follow up with your opthomologist tomorrow. Your fluorsceine stain was normal You may take Tylenol 650mg every 6 hours as needed for pain Return to the ED if your pain gets worse, if you develop fevers, or if you have any changes in your symptoms. - Post Discharge Activity
[2017-12-21] MEDS ORDERED: HEMOQUE TEST 1 EACH EACH ONE (11:31)
[2017-12-21] MEDS ORDERED: SODIUM CHLORIDE 1,000 ML IV STA (11:53)
[2017-12-21 12:02] LABS: BASO % 0.7 % (0-2.0); EOS % 3.2 % (0-4.5); HEMATOCRIT 40.2 % (32.4-45.2); HEMOGLOBIN 14.1 GM/dL (10.7-15.3); MCH 29.1 pg (25.7-33.7); MEAN PLT VOLUME 7.4 fl (7.5-11.1); MONO % 7.3 % (3.8-10.2); NEUT % 53.8 % (42.8-82.8); PLATELET COUNT 254 K/MM3 (134-434); RBC 4.84 M/mm3 (3.60-5.2); WHITE BLOOD COUNT 6.1 K/mm3 (4.0-10.0)
[2017-12-21 12:06] LABS: EPI CELLS FEW /HPF (FEW); URINE APPEARANCE CLOUDY; URINE BILIRUBIN NEGATIVE (<2.0 mg/dL); URINE BLOOD NEGATIVE (NEGATIVE); URINE COLOR LTYELLOW; URINE GLUCOSE (UA) 3+ (NEGATIVE); URINE KETONE NEGATIVE (NEGATIVE); URINE LEUK ESTERASE 3+ (NEGATIVE); URINE MUCUS RARE; URINE NITRITE NEGATIVE (NEGATIVE); URINE PROTEIN NEGATIVE (NEGATIVE); URINE UROBILINOGEN NEGATIVE mg/dL (0.2-1.0)
[2017-12-21 12:27] LABS: ALBUMIN 3.9 g/dl (3.4-5.0); ALK PHOS 150 U/L (45-117); ANION GAP 7 (8-16); BILIRUBIN,TOTAL 0.6 mg/dL (0.2-1.0); BLOOD UREA NITROGEN 15 mg/dL (7-18); CALCIUM 9.2 mg/dL (8.5-10.1); CHLORIDE 99 mmol/L (98-107); CO2 29 mmol/L (21-32); CREATININE 0.6 mg/dL (0.55-1.02); GLUCOSE,RANDOM 199 mg/dL (74-106); POTASSIUM 3.7 mmol/L (3.5-5.1); SGOT/AST 16 U/L (15-37); SGPT/ALT 30 U/L (12-78); SODIUM 135 mmol/L (136-145); TOT PROT 7.7 g/dl (6.4-8.2)
[2017-12-21] MEDS ORDERED: TETRACAINE 0.5% OPHTH SOLN 2 ML BOTTLE OD ONE (12:40)
[2017-12-21] MEDS ORDERED: FLUORESCEIN NA 1 EA STRIP OD ONE (12:41)
[2017-12-21] MEDS ORDERED: FLUORESCEIN NA 1 EA STRIP ONE ×2 (12:43→12:47)
[2017-12-21] MEDS ORDERED: TETRACAINE 0.5% OPHTH SOLN 2 ML BOTTLE ONE (12:43)
[2017-12-21] MEDS ORDERED: ACETAMINOPHEN 325 MG TABLET (FP) PO ONE (13:30)
[2017-12-21] MEDS ORDERED: ACETAMINOPHEN 325 MG TABLET (FP) ONE (13:37)
[2017-12-21 13:42] VITALS: BP 134/80; PULSE 84
== END 2017-12-21 13:46 | disposition home or self-care (01) ==
LOC: JER 10:52
PROC: 3E0337Z Introduction of Electrolytic and Water Balance Substance into Peripheral Vein, Percutaneous Approach (ICD-10-PCS; principal; 2017-12-21)
DX: H57.11 Ocular pain, right eye (principal); N39.0 Urinary tract infection, site not specified
CPT/HCPCS: 36415; 80053; 81003; 81015; 82962; 85025; 87086; 87186; 99283-25; J7030

== ENCOUNTER 2018-07-23 11:55 | Observation (INO) | payer OTHER ==
[2018-07-23] MEDS ORDERED: SODIUM CHLORIDE 1,000 ML IV STA (12:34)
[2018-07-23] MEDS ORDERED: ONDANSETRON 4 MG/2 ML VIAL IVPB ONE (12:41)
[2018-07-23] MEDS ORDERED: FAMOTIDINE 20 MG/50 ML IVPB 20 MG/50 ML MG IVPB ONE ×4 (12:41→17:53)
[2018-07-23] MEDS ORDERED: SUCRALFATE 1 GM TABLET (FP) PO ONE (12:41)
[2018-07-23] MEDS ORDERED: MAG HYDROX/AL HYDROX/SIMETH 30 ML UNIT-DOSE CUP PO ONE (12:41)
--- NOTE | 2018-07-23 12:41 | PDOC ---
History of Present Illness - General Chief Complaint: Pain Stated Complaint: DIARRHEA,WEAKNESS,STOMACH PAINS Time Seen by Provider: 07/23/18 12:29 - History of Present Illness Initial Comments: 07/23/18 12:32 57 yo F with h/o DM, who p/w abdominal pain. Pt. Amharic speaking. Patient reports 2 days of crampy, unremitting, worsening, non radiating, epigastric pain , worse with PO intake x 2 days. Also endorses 3+ episodes of loose watery stools per day, with absent BPR. + nausea without vomiting. Reports similar symptoms x 1 week, that spontaneously resolved following 2 days. Denies recent travels or sick contacts. No associated alleviators. Patient denies F/C, palpitations, hematemesis, leg pain/swelling, CP, SOB, urinary complaints, BPR, hematuria, constipation, lightheadedness, weakness, sensory changes. PMHx: as noted above. Colonoscopy (07/05/18). Denies h/o abdominal surgeries. Denies h/o ACS/OK. on Metoformin. ROS: as noted SHx: Denies IVDA, tobacco use. + Social Etoh. Allergies: Diphehydramine Past History - Past Medical History Allergies/Adverse Reactions: Allergies Allergy/AdvReac Type Severity Reaction Status Date / Time diphenhydramine HCl Allergy fever Verified 07/23/18 12:31 [From Benadryl] Home Medications: Ambulatory Orders Metformin HCl [Metformin HCl ER] mg PO BID 07/23/18 Ondansetron HCl [Zofran] 4 mg PO BID PRN #30 tablet MDD 2 tab 07/23/18 Ranitidine [Zantac -] 150 mg PO BID PRN #30 tablet 07/23/18 COPD: No Diabetes: Yes Kidney Stones: Yes - Suicide/Smoking/Psychosocial Hx Smoking Status: No Smoking History: Never smoked Have you smoked in the past 12 months: No Number of Cigarettes Smoked Daily: 0 Hx Alcohol Use: No Drug/Substance Use Hx: No Substance Use Type: None Review of Systems - Review of Systems Comments:: 07/23/18 12:33 GENERAL/CONSTITUTIONAL: No fever or chills. No weakness. HEAD, EYES, EARS, NOSE AND THROAT: No change in vision. No ear pain or discharge. No sore throat. CARDIOVASCULAR: No chest pain or shortness of breath RESPIRATORY: No cough, wheezing, or hemoptysis. GASTROINTESTINAL: + Abdominal pain, nausea, vomiting, diarrhea. No constipation. GENITOURINARY: No dysuria, frequency, or change in urination. MUSCULOSKELETAL: No joint or muscle swelling or pain. No neck or back pain. SKIN: No rash NEUROLOGIC: No headache, vertigo, loss of consciousness, or change in strength/ sensation. ENDOCRINE: No increased thirst. No abnormal weight change HEMATOLOGIC/LYMPHATIC: No anemia, easy bleeding, or history of blood clots. ALLERGIC/IMMUNOLOGIC: No hives or skin allergy. *Physical Exam - Vital Signs Last Vital Signs Temp Pulse Resp BP Pulse Ox 98.8 F 103 H 20 89/58 L 99 07/23/18 12:14 07/23/18 12:14 07/23/18 12:14 07/23/18 12:14 07/23/18 12:14 - Physical Exam Comments: 07/23/18 12:33 GENERAL: Awake, alert, and fully oriented, in no acute distress HEAD: No signs of trauma, normocephalic, atraumatic EYES: PERRLA, EOMI, sclera anicteric, conjunctiva clear ENT:Hearing grossly normal, nares patent, oropharynx clear without exudates. Moist mucosa NECK: Normal ROM, supple, no lymphadenopathy, JVD, or masses LUNGS: No distress, speaks full sentences, clear to auscultation bilaterally HEART: Regular rate and rhythm, normal S1 and S2, no murmurs, rubs or gallops, peripheral pulses normal and equal bilaterally. ABDOMEN: + Epiagstric, and RUQ ttp. Soft, NDS, normoactive bowel sounds. No guarding, no rebound, no rigidity. No masses. Neg CVA ttp. EXTREMITIES : Normal inspection, Normal range of motion, no edema. No clubbing or cyanosis. SKIN: Warm, Dry, normal turgor, no rashes or lesions noted Moderate Sedation - Procedure Monitoring Vital Signs: Procedure Monitoring Vital Signs Temperature 98.8 F 07/23/18 12:14 Pulse Rate 103 H 07/23/18 12:14 Respiratory Rate 20 07/23/18 12:14 Blood Pressure 89/58 L 07/23/18 12:14 O2 Sat by Pulse Oximetry (%) 99 07/23/18 12:14 ED Treatment Course - LABORATORY CBC & Chemistry Diagram: 07/23/18 12:40 07/23/18 12:40 Medical Decision Making - Medical Decision Making 07/23/18 12:45 57 yo F with h/o DM, who p/w abdominal pain, loose watery stools, and nausea. HR 103, BP 89/58, Temp 98.8, 99 % O2 RA. + RUQ and epigastric ttp. Will consider esophagitis, gastritis, gastroenteritis, biliary dz., pancreatitis, colitis, neprho, pyelo. Low suspicion AAA, Ao dissection, appendicitis. ED Course: CBC,CMP, Cardiac Pr. Lipase, UA, UCx., BCx. LA EKG NS, Zofran, Maloox, Rocephin 07/23/18 13:24 CBC: Unremarkable 07/23/18 13:25 EKG: NSR with absent VANE, STD. Nml interval duration and axis. 07/23/18 14:07 GLU~458 Anion gap 12 HCO3 24 07/23/18 14:07 Lipase, trop: neg 07/23/18 14:13 BP 121/80, HR 90. Nausea and abdominal pain improved. 07/23/18 14:20 GB U/S: Multiple GB polyps with the most prominent measuring 0.7 cm. Correlation with 3-6 month U/S is recommended. GB mildly contracted, with thickened GB wall. 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 Tavarez. Admit to medicine Dr. Carmona *DC/Admit/Observation/Transfer Diagnosis at time of Disposition: Epigastric abdominal pain, Pyelonephritis - Discharge Dispostion Condition at time of disposition: Stable Decision to Admit order: Yes - Prescriptions Prescriptions: Ondansetron HCl [Zofran] 4 mg PO BID PRN #30 tablet MDD 2 tab PRN Reason: Pain Ranitidine [Zantac -] 150 mg PO BID PRN #30 tablet PRN Reason: Nausea - Referrals - Patient Instructions Printed Discharge Instructions: DI for Epigastric Pain Additional Instructions: Please return to the emergency department with any new or worsening symptoms or concerns. Please follow up with your primary care physician within 72 hours. Please follow up with gastroenterology within one week. Please take Ranitidine, and Zofran as needed for symptoms. - Post Discharge Activity - Attestations Physician Attestion: 07/23/18 12:34 I attest to the information provided in this note.
[2018-07-23 12:51] LABS: BASO % 0.9 % (0-2.0); EOS % 2.8 % (0-4.5); HEMATOCRIT 39.5 % (32.4-45.2); HEMOGLOBIN 14.2 GM/dL (10.7-15.3); LYMPH % 31.6 % (8-40); MCH 29.7 pg (25.7-33.7); MEAN CELL VOLUME 82.5 fl (80-96); MEAN PLT VOLUME 7.5 fl (7.5-11.1); MONO % 9.3 % (3.8-10.2); NEUT % 55.4 % (42.8-82.8); PLATELET COUNT 249 K/MM3 (134-434); WHITE BLOOD COUNT 5.2 K/mm3 (4.0-10.0)
[2018-07-23] MEDS ORDERED: MAG HYDROX/AL HYDROX/SIMETH 30 ML UNIT-DOSE CUP ONE (12:56)
[2018-07-23] MEDS ORDERED: SUCRALFATE 1 GM TABLET (FP) ONE (12:56)
[2018-07-23] MEDS ORDERED: ONDANSETRON 4 MG/2 ML VIAL ONE (12:57)
--- NOTE | 2018-07-23 13:13 | PDOC ---
Attending Attestation - Resident Resident Name: Gregor Lal - ED Attending Attestation I have performed the following: I have examined & evaluated the patient, The case was reviewed & discussed with the resident, I agree w/resident's findings & plan, Exceptions are as noted - Physicial Exam PE: 07/23/18 15:26 Awake alert no acute distress lungs are clear bilaterally heart is regular tachycardia no murmurs rubs or gallops abdomen is soft she has mild epigastric and white upper quadrant tenderness to palpation no rebound no guarding no CVA tenderness extremities are warm and well-perfused no edema skin is warm and dry no rash neurologically patient is awake alert oriented 3 speech is clear - Medical Decision Making Differential diagnosis includes gastritis, gastroenteritis, cholecystitis cholelithiasis pancreatitis DKA UTI Sheng or other infection such as pneumonia and dehydration pedro dunham, Patient has hyperglycemia with a sugar 450 will treat with IV hydration followed by insulin she noted to have a UTI will treat with ceftriaxone patient' s blood pressure which was additionally the 80 systolic did improve with 1 L we' ll give her a second liter for severe dehydration presumed sepsis THE GALLBLADDER SHOWS MULTIPLE GALLBLADDER POLYPS. DUE TO THE PATIENT'S PERSISTENT TENDERNESS AND PAIN IN ADDITION TO HER SHENG WE'LL OBTAIN A CT ABDOMEN AND PELVIS TO EVALUATE FOR OTHER CAUSES OF HER PAIN 07/23/18 15:27 <Maria Nguyen - Last Filed: 07/23/18 15:29> - HPI HPI: 07/23/18 13:15 The patient is a 57 year old female, with a significant past medical history of diabetes, who presents to the emergency department with non radiating epigastric pain, nausea, vomiting, and diarrhea for 3 days. She reports a minimum of 3 episodes of nonbloody, watery stools daily since onset. She states she has been nauseous for the past 2 days without emesis. She reports similar nausea with vomiting last week, but denies any vomiting over the past 3 days. The patient denies chest pain, shortness of breath, headache and dizziness. The patient denies fever, chills, and constipation. The patient denies dysuria, frequency, urgency and hematuria. Allergies: diphenhydramine HCl - Medical Decision Making 07/23/18 13:15 Documentation prepared by Kateryna Parrish, acting as registered medical transcriptionist for Maria Nguyen MD EXAM#: TYPE/EXAM: RESULT: [id number] US/ABDOMEN US -LIMITED Right upper quadrant abdomen ultrasound Impression: No sonographic evidence of cholelithiasis allowing for mildly limiting mild gallbladder contraction. Multiple gallbladder polyps are seen the most prominent measuring 0.7 cm in diameter. Correlation with 3-6 month follow up sonography is suggested to document stability and lack of development pathology. The gallbladder appears mildly contracted. There is also borderline wall thickness. These findings are probably on a physiologic basis and less likely chronic cholecystitis as the patient is not NPO for this exam. If clinically indicated correlate with 1-2 week follow-up sonography with optimal preparative fasting. As on prior studies medullary nephrocalcinosis is seen involving the right kidney. Similar involvement of the left kidney was noted on a 2017 CT study. Reported By: Ralph oCrdero MD 07/23/18 1418 DATE OF SERVICE: 2018-07-23 16:13:02 IMAGES: 512 EXAM: CT ABDOMEN AND PELVIS WITHOUT CONTRAST REASON FOR EXAM: Abdominal pain COMPARISON: None IMPRESSION: Bilateral nephrolithiasis with findings suggestive of medullary nephrocalcinosis. No hydronephrosis or obstructing ureteral stone. Distended urinary bladder with tiny air locules possibly from recent intervention with underlying gas-forming organism cystitis not excluded. Possible cholelithiasis can be evaluated with ultrasound. One or more of the following dose reduction techniques were used: automated exposure control, adjustment of the mA and/or kV according to patient size, use of iterative reconstruction technique. One or more of the following dose reduction techniques were used: automated exposure control, adjustment of the mA and/or kV according to patient size, use of iterative reconstructive technique. Lucia Laureano D.O. 07/23/2018 17:48 EST <Kateryna Parrish - Last Filed: 07/23/18 18:08> Heart Score/ECG Review #1 General ECG Interpretation: Sinus Rhythm, Normal Rate (91), Normal Intervals, No acute ischemic changes <Maria Nguyen - Last Filed: 07/23/18 15:29>
[2018-07-23 13:32] LABS: ALBUMIN 3.8 g/dl (3.4-5.0); ALK PHOS 114 U/L (45-117); ANION GAP 12 MMOL/L (8-16); BILIRUBIN,TOTAL 0.6 mg/dL (0.2-1); BLOOD UREA NITROGEN 24 mg/dL (7-18); CALCIUM 8.8 mg/dL (8.5-10.1); CHLORIDE 99 mmol/L (98-107); CO2 24 mmol/L (21-32); LIPASE 339 U/L (73-393); POTASSIUM 4.4 mmol/L (3.5-5.1); SGOT/AST 12 U/L (15-37); SGPT/ALT 31 U/L (13-61); SODIUM 135 mmol/L (136-145); TOT PROT 7.4 g/dl (6.4-8.2)
[2018-07-23 13:34] LABS: GLUCOSE,RANDOM 458 mg/dL (74-106)
[2018-07-23] MEDS ORDERED: SODIUM CHLORIDE 0.9% 500 ML INFUS.BAG IV ONE (13:51)
[2018-07-23 14:35] LABS: URINE APPEARANCE CLOUDY; URINE BILIRUBIN NEGATIVE (<2.0 mg/dL); URINE COLOR LTYELLOW; URINE GLUCOSE (UA) 3+ (NEGATIVE); URINE KETONE NEGATIVE (NEGATIVE); URINE LEUK ESTERASE 3+ (NEGATIVE); URINE NITRITE NEGATIVE (NEGATIVE); URINE PROTEIN 1+ (NEGATIVE); URINE UROBILINOGEN NEGATIVE mg/dL (0.2-1.0)
[2018-07-23 14:47] LABS: EPI CELLS FEW /HPF (FEW); URINE MUCUS RARE; YEAST MODERATE
[2018-07-23] MEDS ORDERED: INSULIN REGULAR HUMAN 100 UNITS/ML *VIAL IVPUSH ONE (14:59)
[2018-07-23] MEDS ORDERED: INSULIN REGULAR HUMAN 100 UNITS/ML *VIAL ONE (15:12)
[2018-07-23] MEDS ORDERED: SODIUM CHLORIDE 1,000 ML IV SCH ×2 (17:00→17:48)
[2018-07-23] MEDS ORDERED: ONDANSETRON 4 MG/2 ML VIAL IM PRN (17:03)
[2018-07-23] MEDS ORDERED: CEFTRIAXONE 1 GM/50 ML BAG ONE (17:05)
--- NOTE | 2018-07-23 17:45 | HP ---
CHIEF COMPLAINT: abdominal pain, nausea, vomiting PCP: HISTORY OF PRESENT ILLNESS: 57 y/o female with PMH of diabetes ( on metformin 500 BID), multiple episodes of pyelonephritis, renal stones requiring 2 procedures 10 years ago, presents to the ED with complaints of epigastric pain, nausea, vomiting, diarrhea. Of note patient had a colonoscopy at [facility] on 07/05/18 which showed internal hemorrhoid and polyp in the hepatic flexure, and since then wasnt feeling right. She had a one day history of vomiting with 2 days of diarrhea which subsided last Tuesday and was feeling flu-like symptoms in the interim, then yesterday had vomiting, diarrhea and epigastric pain which did not get better despite taking pepto-bismol so she came to the ED. She denies any sick contacts at home or any recent travel. ER course was notable for: (1)Glucose 458- given 6 units of insulin (2)Ultrasound done; no evidence of cholecystitis or pancreatitis, but GB polyps found (3)given carafate, zofran, malox, ceftriaxone (positive UTI), pepcid Recent Travel: none PAST MEDICAL HISTORY: see above PAST SURGICAL HISTORY: renal stone removal procedure Social History: Smoking:denies Alcohol:social drinker Drugs: denies Family History: Allergies diphenhydramine HCl [From Benadryl] Allergy (Verified 07/23/18 12:31) fever HOME MEDICATIONS: Home Medications Medication Instructions Recorded Metformin HCl [Metformin HCl ER] mg PO BID 07/23/18 Ondansetron HCl [Zofran] 4 mg PO BID PRN #30 tablet MDD 2 07/23/18 tab Ranitidine [Zantac -] 150 mg PO BID PRN #30 tablet 07/23/18 REVIEW OF SYSTEMS CONSTITUTIONAL: Absent: fever, chills, diaphoresis, generalized weakness, malaise, loss of appetite, weight change HEENT: Absent: rhinorrhea, nasal congestion, throat pain, throat swelling, difficulty swallowing, mouth swelling, ear pain, eye pain, visual changes CARDIOVASCULAR: Absent: chest pain, syncope, palpitations, irregular heart rate, lightheadedness , peripheral edema RESPIRATORY: Absent: cough, shortness of breath, dyspnea with exertion, orthopnea, wheezing, stridor, hemoptysis GASTROINTESTINAL: Present: abdominal pain, nausea, vomiting, diarrhea,Absent: abdominal distension, constipation, melena, hematochezia GENITOURINARY: Absent: dysuria, frequency, urgency, hesitancy, hematuria, flank pain, genital pain MUSCULOSKELETAL: Absent: myalgia, arthralgia, joint swelling, back pain, neck pain SKIN: Absent: rash, itching, pallor HEMATOLOGIC/IMMUNOLOGIC: Absent: easy bleeding, easy bruising, lymphadenopathy, frequent infections ENDOCRINE: Absent: unexplained weight gain, unexplained weight loss, heat intolerance, cold intolerance NEUROLOGIC: Absent: headache, focal weakness or paresthesias, dizziness, unsteady gait, seizure, mental status changes, bladder or bowel incontinence PSYCHIATRIC: Absent: anxiety, depression, suicidal or homicidal ideation, hallucinations. PHYSICAL EXAMINATION Vital Signs - 24 hr 07/23/18 07/23/18 07/23/18 12:14 14:23 16:58 Temperature 98.8 F Pulse Rate 103 H Pulse Rate [ 90 Right Brachial] Respiratory 20 16 Rate Blood Pressure 89/58 L Blood Pressure 121/80 [Right Arm] O2 Sat by Pulse 99 100 Oximetry (%) GENERAL: Awake, alert, and fully oriented, in no acute distress. EYES: no scleral icterus, NECK: no JVD, no lymphadenopathy LUNGS: CTA B/L; no rales, rhonchi or wheezing. HEART: Regular rate and rhythm, normal S1 and S2 without murmur, rub or gallop. ABDOMEN: + epigastric tenderness; soft; +BS in all 4 quadrants. MUSCULOSKELETAL: + Right sided tenderness. EXTREMITIES: warm; well-perfused, no clubbing.cyanosis or edema SKIN: Warm, dry, normal turgor, no rashes or lesions noted, normal capillary refill. Laboratory Results - last 24 hr 07/23/18 07/23/18 07/23/18 12:40 12:40 13:57 WBC 5.2 RBC 4.80 Hgb 14.2 Hct 39.5 MCV 82.5 MCH 29.7 MCHC 36.0 RDW 13.0 Plt Count 249 MPV 7.5 Absolute Neuts (auto) 2.9 Neutrophils % 55.4 Lymphocytes % 31.6 Monocytes % 9.3 Eosinophils % 2.8 Basophils % 0.9 Nucleated RBC % 0 Sodium 135 L Potassium 4.4 Chloride 99 Carbon Dioxide 24 Anion Gap 12 BUN 24 H Creatinine 1.0 Creat Clearance w eGFR 57.15 POC Glucometer Random Glucose 458 H* Lactic Acid Calcium 8.8 Total Bilirubin 0.6 AST 12 L ALT 31 Alkaline Phosphatase 114 Creatine Kinase 105 Troponin I < 0.02 Total Protein 7.4 Albumin 3.8 Lipase 339 Urine Color Urine Appearance Urine pH Ur Specific [place] Urine Protein Urine Glucose (UA) Urine Ketones Urine Blood Urine Nitrite Urine Bilirubin Urine Urobilinogen Ur Leukocyte Esterase Urine WBC (Auto) Urine RBC (Auto) Ur Epithelial Cells Urine Mucus Urine Yeast Acetone, Qual Negative L 07/23/18 07/23/18 07/23/18 14:20 14:39 14:50 WBC RBC Hgb Hct MCV MCH MCHC RDW Plt Count MPV Absolute Neuts (auto) Neutrophils % Lymphocytes % Monocytes % Eosinophils % Basophils % Nucleated RBC % Sodium Potassium Chloride Carbon Dioxide Anion Gap BUN Creatinine Creat Clearance w eGFR POC Glucometer [phone] Random Glucose Lactic Acid 1.9 Calcium Total Bilirubin AST ALT Alkaline Phosphatase Creatine Kinase Troponin I Total Protein Albumin Lipase Urine Color Ltyellow Urine Appearance Cloudy Urine pH 6.0 Ur Specific [place] 1.020 Urine Protein 1+ H Urine Glucose (UA) 3+ H Urine Ketones Negative Urine Blood 1+ H Urine Nitrite Negative Urine Bilirubin Negative Urine Urobilinogen Negative Ur Leukocyte Esterase 3+ H Urine WBC (Auto) 448 Urine RBC (Auto) 24 Ur Epithelial Cells Few Urine Mucus Rare Urine Yeast Moderate Acetone, Qual ASSESSMENT/PLAN: 57 y.o female with PMH of DM , renal stones, multiple episodes of pyelonephritis presents to the ED with complaints of epigastric pain, nausea, vomiting for the past few days also found to have a glucose of 458 on admission. #Abdominal Pain seems more epigastric in nature given patients description of pain; no evidence of choleycystitis or pancreatitis on U/S -CT scan pending -Zofran PRN for nausea -pepcid -IV fluids (low rate given patients rapid drop in BGM from 458 to 91) #UTI positive U/A -started patient on 1 gram of ceftriaxone -follow up Spiral CT -urine and blood cx pending - ? pyelo given R sided CVA tenderness #Hyperglycemia -glucose on admission was 458; after 6 units went down to 81: anion gap was 12 -BGMS ACHS -ISS ACHS -holding home oral hypoglycemics -monitor for symptoms of hypoglycemia #GB polyps seen on ultrasound patient will need a follow up in 6 months F/E/N NS @75mls/hr monitor electrolytes and glucose clear liquids DVT PPX: Heparin SQ Visit type - Emergency Visit Emergency Visit: Yes ED Registration Date: 07/23/18 Care time: The patient presented to the Emergency Department on the above date and was hospitalized for further evaluation of their emergent condition. - New Patient This patient is new to me today: Yes Date on this admission: 07/23/18 - Critical Care Critical Care patient: No
--- NOTE | 2018-07-23 17:47 | PN ---
Teaching Attending Note Name of Resident: Marlen Morgan ATTENDING PHYSICIAN STATEMENT I saw and evaluated the patient. I reviewed the resident's note and discussed the case with the resident. I agree with the resident's findings and plan as documented. SUBJECTIVE:57yo F wtih PMH DM, renal stones and frequent "kidney infections" presented to the ER wt epigastric pain [id number]. assoc with nausea, vomiting, diarrhea. pain is not moving. got better for a few days last week but had cold like symptoms at that time and then came back on again a few days ago. not worse with eating. never had symptoms like this before. denies CP, SOB, fever, chills, Night sweats. no recent changes to medications. have been taking her medications every morning and took them today no sick contacts or travel has never been treated for DKA OBJECTIVE: Last Vital Signs Temp Pulse Resp BP Pulse Ox 99 F 86 16 136/66 100 18 17:21 18 17:21 12 17:21 18 17:21 07/23/18 17:21 General lethargic CV S1 S2 RRR no murmur/rub/gallop Lungs CTA B/L no wheezing/rales/rhonchi Abdomen soft +epigastric pain with guarding. +BS. +R CVA tenderness Extremities no pedal edema ASSESSMENT AND PLAN: 57yo F wtih PMH DM, renal stones and frequent "kidney infections" presented to the ER wt epigastric pain [id number] and found to have UTI with suspected pyelonephritis 1. UTI- with probable pyelonephritis although afebrile and no leukocytosis. lactic acid normal. start IVF, ceftriaxone, pain and nausea control. will obtain Cx prior to initiation of abx. 2. Epigastric pain- likely gastroenteritis. lipase WNL. not on medications suggestive of pancreatitis. CT scan done and awaiting results. will cont with symptomatic treatment. IVF, analagesia and anti-emetics 3. Hyperglycemia- likley due to infection vs inadequate treatment for DM. check A1c. with IVF repeat BGM 81. hold oral agents, iss, bgm 4. GB polyp- several seen on u/s. largest one 0.7cm. as per daughter she is aware she had polyps in the past. unclear on size. will need routine surveillance 5. renal stones-outpatient follow up 6. DVT ppx- hep sq 7. spoke with daughter present at bedside. all questions answered. verbalized understanding and agreement
--- NOTE | 2018-07-23 17:58 | HP ---
CHIEF COMPLAINT: diarrhea, abd pain PCP: [facility] HISTORY OF PRESENT ILLNESS: Pt is a 57 y/o F with PMH multiple renal stones (10 years ago had 2 surgeries to remove stones), NIDDM (on metformin), recent routine colonoscopy (07/05/18) who presented to ED with complaint of n/v/d. She experienced nbnb vomit for 1 day shortly after her colonoscopy followed by 2 days of nonbloody diarrhea ( beginning around Mon). Then she had several days of "flu" symptoms including subjective fevers, chills, sneezing, but did not have body aches. Yesterday, she again began to have nonbloody diarrhea, which continued until today, and so decided to come to ED. She has not had any vomiting or diarrhea since arriving in ED. She currently has malaise. She complains of epigastric pain, nonradiating, burning in nature. No urinary complaints. Of note, she has had several kidney stones and kidney infections, and she states this episode doesn't feel quite like those. ER course was notable for: (1) BP 89/58 -> 136/66, HR 103 -> 86 (2) glucose 458, LA 1.9, UA 1 prot/3 glucose/1 blood/3 LE/448 WBC/24 RBC/mod yeast (3) Liver US w/ GB polyp Recent Travel: denies PAST MEDICAL HISTORY: DM, kidney stones PAST SURGICAL HISTORY: kidney stone removal Social History: Smoking: former Alcohol: social Drugs: denies Family History: denies Allergies diphenhydramine HCl [From Benadryl] Allergy (Verified 07/23/18 12:31) fever HOME MEDICATIONS: Home Medications Medication Instructions Recorded Metformin HCl [Metformin HCl ER] mg PO BID 07/23/18 Ondansetron HCl [Zofran] 4 mg PO BID PRN #30 tablet MDD 2 07/23/18 tab Ranitidine [Zantac -] 150 mg PO BID PRN #30 tablet 07/23/18 REVIEW OF SYSTEMS CONSTITUTIONAL: Absent: fever, chills, diaphoresis, generalized weakness, malaise, loss of appetite, weight change HEENT: Absent: rhinorrhea, nasal congestion, throat pain, throat swelling, difficulty swallowing, mouth swelling, ear pain, eye pain, visual changes CARDIOVASCULAR: Absent: chest pain, syncope, palpitations, irregular heart rate, lightheadedness , peripheral edema RESPIRATORY: cough, sneezing, congestion Absent:, shortness of breath, dyspnea with exertion, orthopnea, wheezing, stridor, hemoptysis GASTROINTESTINAL:abdominal pain, nausea, vomiting, diarrhea Absent: , abdominal distension, constipation, melena, hematochezia GENITOURINARY: Absent: dysuria, frequency, urgency, hesitancy, hematuria, flank pain, genital pain MUSCULOSKELETAL: Absent: myalgia, arthralgia, joint swelling, back pain, neck pain SKIN: Absent: rash, itching, pallor HEMATOLOGIC/IMMUNOLOGIC: Absent: easy bleeding, easy bruising, lymphadenopathy, frequent infections ENDOCRINE: Absent: unexplained weight gain, unexplained weight loss, heat intolerance, cold intolerance NEUROLOGIC: Absent: headache, focal weakness or paresthesias, dizziness, unsteady gait, seizure, mental status changes, bladder or bowel incontinence PSYCHIATRIC: Absent: anxiety, depression, suicidal or homicidal ideation, hallucinations. PHYSICAL EXAMINATION Vital Signs - 24 hr 07/23/18 07/23/18 12:14 14:23 Temperature 98.8 F Pulse Rate 103 H Pulse Rate [ 90 Right Brachial] Respiratory 20 16 Rate Blood Pressure 89/58 L Blood Pressure 121/80 [Right Arm] O2 Sat by Pulse 99 Oximetry (%) GEN: NAD, AAO x 3 HEENT: NCAT, EOMI Neck: supple, no jvd Cardio: rrr, normal s1s2, no mrg Pulm: cta b/l Abd: soft, nondistended, mild TTP in epigastrium, R CVA tenderness Ext: no edema Laboratory Results - last 24 hr 07/23/18 07/23/18 07/23/18 12:40 12:40 13:57 WBC 5.2 RBC 4.80 Hgb 14.2 Hct 39.5 MCV 82.5 MCH 29.7 MCHC 36.0 RDW 13.0 Plt Count 249 MPV 7.5 Absolute Neuts (auto) 2.9 Neutrophils % 55.4 Lymphocytes % 31.6 Monocytes % 9.3 Eosinophils % 2.8 Basophils % 0.9 Nucleated RBC % 0 Sodium 135 L Potassium 4.4 Chloride 99 Carbon Dioxide 24 Anion Gap 12 BUN 24 H Creatinine 1.0 Creat Clearance w eGFR 57.15 POC Glucometer Random Glucose 458 H* Lactic Acid Calcium 8.8 Total Bilirubin 0.6 AST 12 L ALT 31 Alkaline Phosphatase 114 Creatine Kinase 105 Troponin I < 0.02 Total Protein 7.4 Albumin 3.8 Lipase 339 Urine Color Urine Appearance Urine pH Ur Specific [place] Urine Protein Urine Glucose (UA) Urine Ketones Urine Blood Urine Nitrite Urine Bilirubin Urine Urobilinogen Ur Leukocyte Esterase Urine WBC (Auto) Urine RBC (Auto) Ur Epithelial Cells Urine Mucus Urine Yeast Acetone, Qual Negative L 07/23/18 07/23/18 07/23/18 14:20 14:39 14:50 WBC RBC Hgb Hct MCV MCH MCHC RDW Plt Count MPV Absolute Neuts (auto) Neutrophils % Lymphocytes % Monocytes % Eosinophils % Basophils % Nucleated RBC % Sodium Potassium Chloride Carbon Dioxide Anion Gap BUN Creatinine Creat Clearance w eGFR POC Glucometer [phone] Random Glucose Lactic Acid 1.9 Calcium Total Bilirubin AST ALT Alkaline Phosphatase Creatine Kinase Troponin I Total Protein Albumin Lipase Urine Color Ltyellow Urine Appearance Cloudy Urine pH 6.0 Ur Specific [place] 1.020 Urine Protein 1+ H Urine Glucose (UA) 3+ H Urine Ketones Negative Urine Blood 1+ H Urine Nitrite Negative Urine Bilirubin Negative Urine Urobilinogen Negative Ur Leukocyte Esterase 3+ H Urine WBC (Auto) 448 Urine RBC (Auto) 24 Ur Epithelial Cells Few Urine Mucus Rare Urine Yeast Moderate Acetone, Qual ASSESSMENT/PLAN: Pt is a 57 y/o F with PMH DM, kdiney stones, multiple kidney infections who presented to ED with complaint of n/v/d as well as URI symptoms for approx 1 week. Pt admitted for pyelo. #sepsis 2/2 pyeolonephritis -abd pain, R CVA tenderness, hypotension, tachycardia -LA 1.9 -> 2.4. f/u repeat -UA pos for UTI -BP stable now -c/w Rocephin, NS -monitor cbc -f/u CTAP report #? Gastroenteritis -n/v/d -fluids -Zofran -clear diet #NIDDM with Hyperglycemia -BGM 458 -repeat bgm of 81 after 6 units Ins -repeat BMP tonight #GB polyp -finding on RUQ U/S -pt will have to follow up as out pt with her GI at [facility] #FEN -NS 75 -lytes wnl -clear liquids #PPx -HSQ #Dispo -med surg Timothy Tavarez MD PGY-2 IM Visit type - Emergency Visit Emergency Visit: No - New Patient This patient is new to me today: No - Critical Care Critical Care patient: No
[2018-07-23] MEDS: SODIUM CHLORIDE 1,000 ML IV SCH (18:30)
[2018-07-23 19:39] VITALS: BMI 20.7
[2018-07-23] MEDS: INSULIN SLIDING SCALE (NOVOLOG) 1 VIAL SQ SCH (22:09)
[2018-07-23] MEDS: HEPARIN NA (PORCINE) 5,000 UNITS/ML 1ML VIAL SQ SCH (22:10)
[2018-07-23 22:13] LABS: ANION GAP 7 MMOL/L (8-16); BLOOD UREA NITROGEN 15 mg/dL (7-18); CALCIUM 7.9 mg/dL (8.5-10.1); CHLORIDE 106 mmol/L (98-107); CO2 26 mmol/L (21-32); CREATININE 0.6 mg/dL (0.55-1.3); GLUCOSE,RANDOM 202 mg/dL (74-106); POTASSIUM 3.6 mmol/L (3.5-5.1); SODIUM 138 mmol/L (136-145)
[2018-07-24] MEDS: SODIUM CHLORIDE 1,000 ML IV SCH (05:27)
[2018-07-24] MEDS: HEPARIN NA (PORCINE) 5,000 UNITS/ML 1ML VIAL SQ SCH ×3 (06:11→22:22)
[2018-07-24] MEDS: INSULIN SLIDING SCALE (NOVOLOG) 1 VIAL SQ SCH ×4 (06:11→22:23)
[2018-07-24] MEDS ORDERED: INSULIN (NOVOLOG) ASPART 100 UNITS/ML 10ML VIAL ONE ×3 (06:23→17:49)
[2018-07-24 06:47] LABS: BASO % 0.9 % (0-2.0); HEMATOCRIT 36.9 % (32.4-45.2); HEMOGLOBIN 12.6 GM/dL (10.7-15.3); LYMPH % 39.1 % (8-40); MCH 28.1 pg (25.7-33.7); MCHC 34.1 g/dl (32.0-36.0); MEAN CELL VOLUME 82.5 fl (80-96); MEAN PLT VOLUME 7.5 fl (7.5-11.1); MONO % 7.1 % (3.8-10.2); NEUT % 47.9 % (42.8-82.8); PLATELET COUNT 205 K/MM3 (134-434); RBC 4.48 M/mm3 (3.60-5.2); RDW 12.6 % (11.6-15.6); WHITE BLOOD COUNT 3.8 K/mm3 (4.0-10.0)
[2018-07-24 07:10] LABS: ANION GAP 8 MMOL/L (8-16); BLOOD UREA NITROGEN 11 mg/dL (7-18); CALCIUM 8.3 mg/dL (8.5-10.1); CHLORIDE 103 mmol/L (98-107); CO2 26 mmol/L (21-32); CREATININE 0.5 mg/dL (0.55-1.3); GLUCOSE,RANDOM 202 mg/dL (74-106); MAGNESIUM 1.9 mg/dL (1.8-2.4); PHOSPHOROUS 2.7 mg/dL (2.5-4.9); POTASSIUM 3.6 mmol/L (3.5-5.1); SODIUM 137 mmol/L (136-145)
[2018-07-24] MEDS ORDERED: DEXTROSE 5%-WATER - 50 ML IVPB ONE (09:56)
[2018-07-24] MEDS ORDERED: cefTRIAXone SODIUM 1 GM VIAL ONE (09:56)
[2018-07-24] MEDS: CEFTRIAXONE 1 GM in DEXTROSE 5%-WATER - 50 ML IVPB SCH (10:32)
--- NOTE | 2018-07-24 11:18 | EKG ---
Test Reason : Blood Pressure : / mmHG Vent. Rate : 091 BPM Atrial Rate : 091 BPM P-R Int : 176 ms QRS Dur : 072 ms QT Int : 368 ms P-R-T Axes : 069 071 057 degrees QTc Int : 452 ms NORMAL SINUS RHYTHM NORMAL ECG WHEN COMPARED WITH ECG OF 04-DEC-2016 00:30, NO SIGNIFICANT CHANGE WAS FOUND Confirmed by ANDRE MCCOY MD ([id number]) on 07/24/2018 11:17:33 AM Referred By: Confirmed By:ANDRE MCCOY MD
--- NOTE | 2018-07-24 13:17 | PN ---
Teaching Attending Note Name of Resident: Marlen Morgan ATTENDING PHYSICIAN STATEMENT I saw and evaluated the patient. I reviewed the resident's note and discussed the case with the resident. I agree with the resident's findings and plan as documented. SUBJECTIVE:asymptomatic. states she feels much better today. pain has resolved. denies CP, SOB, fever, chills, N/V/C/D OBJECTIVE: Last Vital Signs Temp Pulse Resp BP Pulse Ox 98.2 F 83 18 121/68 98 07/24/18 06:00 07/24/18 06:00 07/24/18 06:00 07/24/18 06:00 07/24/18 00:58 General lethargic CV S1 S2 RRR no murmur/rub/gallop Lungs CTA B/L no wheezing/rales/rhonchi Abdomen soft +epigastric pain with guarding. +BS. +R CVA tenderness Extremities no pedal edema ASSESSMENT AND PLAN: 57yo F wtih PMH DM, renal stones and frequent "kidney infections" presented to the ER wtih epigastric pain [id number] and found to have UTI with suspected pyelonephritis 1. UTI-clinically improved. CT scan negative for signs of pyelo. will cont Ceftriaxone day 2. f/u cx. 2. Epigastric pain- likely gastroenteritis. lipase WNL. CT not suggestive of acute process. now resolved. requesting regular food. will trial diet. d/c IVF if tolerates 3. Hyperglycemia- A1c 12. will need insulin. start levemir 5 units tongiht and titrate. 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 RN teaching on how to inject insulin. dietary eval. will need to f/u closely with PMD for sugar management.will d/c oral meds on discharge. 4. GB polyp- several seen on u/s. largest one 0.7cm. as per daughter she is aware she had polyps in the past. unclear on size. will need routine surveillance 5. renal stones-outpatient follow up 6. DVT ppx- hep sq 7. clinically improved. anticipate d/c in 24H if continues to improve.
--- NOTE | 2018-07-24 14:36 | PN ---
Physical Exam: SUBJECTIVE: Patient seen and examined at bedside. no acute events overnihgt; patient is no longer having any epigastric or abodminal pain nor is she having any CVA tenderness- she needed 6 units of insulin overnight. she denies any CP/ SOB/N/v fevers or chills OBJECTIVE: Vital Signs Period Temp Pulse Resp BP Sys/[place] Pulse Ox Last 24 Hr 97.9 F-99 F 83-92 16-18 95-136/53-68 98-100 GENERAL: The patient is awake, alert, and fully oriented, in no acute distress. EYES: no scleral icterus NECK: no JVD, no lypmhadenopathy LUNGS: CTA B/L; no rale,s rhonchi or wheezing. HEART: Regular rate and rhythm, S1, S2 without murmur, rub or gallop. ABDOMEN: soft; non-tender, non-distended +BS in all 4 quadrants. EXTREMITIES: 2+ pulses, warm, well-perfused, no edema. SKIN: Warm, dry, normal turgor, no rashes or lesions noted Laboratory Results - last 24 hr 07/23/18 07/23/18 07/23/18 14:20 14:39 14:50 WBC RBC Hgb Hct MCV MCH MCHC RDW Plt Count MPV Absolute Neuts (auto) Neutrophils % Lymphocytes % Monocytes % Eosinophils % Basophils % Nucleated RBC % Sodium Potassium Chloride Carbon Dioxide Anion Gap BUN Creatinine Creat Clearance w eGFR POC Glucometer [phone] Random Glucose Hemoglobin A1c % Lactic Acid 1.9 Calcium Phosphorus Magnesium Urine Color Ltyellow Urine Appearance Cloudy Urine pH 6.0 Ur Specific [place] 1.020 Urine Protein 1+ H Urine Glucose (UA) 3+ H Urine Ketones Negative Urine Blood 1+ H Urine Nitrite Negative Urine Bilirubin Negative Urine Urobilinogen Negative Ur Leukocyte Esterase 3+ H Urine WBC (Auto) 448 Urine RBC (Auto) 24 Ur Epithelial Cells Few Urine Mucus Rare Urine Yeast Moderate 07/23/18 07/23/18 07/23/18 16:32 17:04 17:26 WBC RBC Hgb Hct MCV MCH MCHC RDW Plt Count MPV Absolute Neuts (auto) Neutrophils % Lymphocytes % Monocytes % Eosinophils % Basophils % Nucleated RBC % Sodium Potassium Chloride Carbon Dioxide Anion Gap BUN Creatinine Creat Clearance w eGFR POC Glucometer 81.03976 94.72086 Random Glucose Hemoglobin A1c % Lactic Acid 2.4 H* Calcium Phosphorus Magnesium Urine Color Urine Appearance Urine pH Ur Specific [place] Urine Protein Urine Glucose (UA) Urine Ketones Urine Blood Urine Nitrite Urine Bilirubin Urine Urobilinogen Ur Leukocyte Esterase Urine WBC (Auto) Urine RBC (Auto) Ur Epithelial Cells Urine Mucus Urine Yeast 07/23/18 07/23/18 07/23/18 21:40 21:40 21:57 WBC RBC Hgb Hct MCV MCH MCHC RDW Plt Count MPV Absolute Neuts (auto) Neutrophils % Lymphocytes % Monocytes % Eosinophils % Basophils % Nucleated RBC % Sodium 138 Potassium 3.6 Chloride 106 Carbon Dioxide 26 Anion Gap 7 L BUN 15 Creatinine 0.6 Creat Clearance w eGFR > 60 POC Glucometer 198 Random Glucose 202 H Hemoglobin A1c % Lactic Acid 1.7 Calcium 7.9 L Phosphorus Magnesium Urine Color Urine Appearance Urine pH Ur Specific [place] Urine Protein Urine Glucose (UA) Urine Ketones Urine Blood Urine Nitrite Urine Bilirubin Urine Urobilinogen Ur Leukocyte Esterase Urine WBC (Auto) Urine RBC (Auto) Ur Epithelial Cells Urine Mucus Urine Yeast 07/24/18 07/24/18 07/24/18 05:33 06:15 06:15 WBC 3.8 L RBC 4.48 Hgb 12.6 Hct 36.9 MCV 82.5 MCH 28.1 MCHC 34.1 RDW 12.6 Plt Count 205 MPV 7.5 Absolute Neuts (auto) 1.8 Neutrophils % 47.9 Lymphocytes % 39.1 D Monocytes % 7.1 Eosinophils % 5.0 H Basophils % 0.9 Nucleated RBC % 0 Sodium 137 Potassium 3.6 Chloride 103 Carbon Dioxide 26 Anion Gap 8 BUN 11 Creatinine 0.5 L Creat Clearance w eGFR > 60 POC Glucometer 216 Random Glucose 202 H Hemoglobin A1c % Lactic Acid Calcium 8.3 L Phosphorus 2.7 Magnesium 1.9 Urine Color Urine Appearance Urine pH Ur Specific [place] Urine Protein Urine Glucose (UA) Urine Ketones Urine Blood Urine Nitrite Urine Bilirubin Urine Urobilinogen Ur Leukocyte Esterase Urine WBC (Auto) Urine RBC (Auto) Ur Epithelial Cells Urine Mucus Urine Yeast 07/24/18 07/24/18 06:15 12:04 WBC RBC Hgb Hct MCV MCH MCHC RDW Plt Count MPV Absolute Neuts (auto) Neutrophils % Lymphocytes % Monocytes % Eosinophils % Basophils % Nucleated RBC % Sodium Potassium Chloride Carbon Dioxide Anion Gap BUN Creatinine Creat Clearance w eGFR POC Glucometer 147 Random Glucose Hemoglobin A1c % 12.0 H Lactic Acid Calcium Phosphorus Magnesium Urine Color Urine Appearance Urine pH Ur Specific [place] Urine Protein Urine Glucose (UA) Urine Ketones Urine Blood Urine Nitrite Urine Bilirubin Urine Urobilinogen Ur Leukocyte Esterase Urine WBC (Auto) Urine RBC (Auto) Ur Epithelial Cells Urine Mucus Urine Yeast Active Medications Generic Name Dose Route Start Last Admin Trade Name Freq PRN Reason Stop Dose Admin Heparin Sodium (Porcine) 5,000 unit 07/23/18 22:00 07/24/18 14:11 Heparin - SQ 5,000 unit TID LUANN Administration Ceftriaxone Sodium 1 gm/ 50 mls @ 200 mls/hr 07/24/18 10:00 07/24/18 10:32 Dextrose IVPB 200 mls/hr DAILY LUANN Administration Protocol Insulin Aspart 1 vial 07/23/18 22:00 07/24/18 12:05 Novolog Vial Sliding Scale - SQ Not Given ACHS [facility] Protocol Insulin Detemir 5 units 07/24/18 22:00 Levemir Vial SQ HS LUANN Ondansetron HCl 4 mg 07/23/18 17:03 Zofran Injection IM Q6H PRN NAUSEA ASSESSMENT/PLAN: 57 y.o female with PMH of DM , renal stones, multiple episodes of pyelonephritis presents to the ED with complaints of epigastric pain, nausea, vomiting for the past few days also found to have a glucose of 458 on admission. #Abdominal Pain seems more epigastric in nature given patients description of pain; no evidence of choleycystitis or pancreatitis on U/S -CT scan done; no acute pathology -Zofran PRN for nausea -pepcid #UTI positive U/A -started patient on 1 gram of ceftriaxone (day 2); f/u cx -spiral CT shows no evidence of pyelo; just showing possible cystitis -urine and blood cx pending #Hyperglycemia -glucose on admission was 458; after 6 units went down to 81: anion gap was 12 -HbA1c was 12 -starting patient on levemir 5 units HS -BGMS ACHS -ISS ACHS -will need outpatient f/u with PMD -nursing RN to teach patient how to use insulin -dietary consult #GB polyps seen on ultrasound patient will need a follow up in 6 months F/E/N NS @75mls/hr monitor electrolytes and glucose diabetic diet DVT PPX: Heparin SQ Problem List - Problems (1) Epigastric abdominal pain Code(s): R10.13 - EPIGASTRIC PAIN (2) Dehydration Code(s): E86.0 - DEHYDRATION (3) Flank pain Code(s): R10.9 - UNSPECIFIED ABDOMINAL PAIN Visit type - Emergency Visit Emergency Visit: Yes ED Registration Date: 07/23/18 Care time: The patient presented to the Emergency Department on the above date and was hospitalized for further evaluation of their emergent condition. - New Patient This patient is new to me today: No - Critical Care Critical Care patient: No
[2018-07-24] MEDS ORDERED: INSULIN (LEVEMIR) 100 UNITS/ML UNITS SQ SCH (22:00)
[2018-07-25 06:25] LABS: HEMATOCRIT 37.5 % (32.4-45.2); HEMOGLOBIN 12.9 GM/dL (10.7-15.3); MCH 28.3 pg (25.7-33.7); MCHC 34.5 g/dl (32.0-36.0); MEAN CELL VOLUME 81.9 fl (80-96); MEAN PLT VOLUME 7.2 fl (7.5-11.1); PLATELET COUNT 236 K/MM3 (134-434); RBC 4.57 M/mm3 (3.60-5.2); RDW 12.4 % (11.6-15.6); WHITE BLOOD COUNT 4.2 K/mm3 (4.0-10.0)
[2018-07-25] MEDS: HEPARIN NA (PORCINE) 5,000 UNITS/ML 1ML VIAL SQ SCH ×2 (06:36→14:41)
[2018-07-25] MEDS: INSULIN SLIDING SCALE (NOVOLOG) 1 VIAL SQ SCH ×3 (06:36→17:08)
[2018-07-25 06:58] LABS: ANION GAP 8 MMOL/L (8-16); BLOOD UREA NITROGEN 9 mg/dL (7-18); CALCIUM 8.4 mg/dL (8.5-10.1); CHLORIDE 106 mmol/L (98-107); CO2 27 mmol/L (21-32); CREATININE 0.5 mg/dL (0.55-1.3); GLUCOSE,RANDOM 101 mg/dL (74-106); MAGNESIUM 1.8 mg/dL (1.8-2.4); PHOSPHOROUS 3.5 mg/dL (2.5-4.9); POTASSIUM 3.8 mmol/L (3.5-5.1); SODIUM 141 mmol/L (136-145)
[2018-07-25] MEDS ORDERED: cefTRIAXone SODIUM 1 GM VIAL ONE (09:39)
[2018-07-25] MEDS ORDERED: PT OWN MED DRAWER 7, Y5N ONE (09:39)
[2018-07-25] MEDS ORDERED: DEXTROSE 5%-WATER - 50 ML IVPB ONE (09:39)
[2018-07-25 09:50] VITALS: PULSE 94; TEMP 98.1
[2018-07-25] MEDS: CEFTRIAXONE 1 GM in DEXTROSE 5%-WATER - 50 ML IVPB SCH (10:05)
[2018-07-25] MEDS ORDERED: INSULIN (NOVOLOG) ASPART 100 UNITS/ML 10ML VIAL ONE (12:05)
[2018-07-25 13:43] VITALS: BP 106/63
--- NOTE | 2018-07-25 15:03 | PN ---
Teaching Attending Note Name of Resident: Marlen Morgan ATTENDING PHYSICIAN STATEMENT I saw and evaluated the patient. I reviewed the resident's note and discussed the case with the resident. I agree with the resident's findings and plan as documented with exceptions below. SUBJECTIVE: Patient seen and examined. feels good, no back or flank pain, eager to go home. OBJECTIVE: Vital Signs Period Temp Pulse Resp BP Sys/Hemphill Pulse Ox Last 24 Hr 98.0 F-98.5 F 84-94 18-20 100-126/63-78 96 Intake & Output 07/22/18 07/23/18 07/24/18 07/25/18 23:59 23:59 23:59 23:59 Intake Total 1750 Balance 1750 Weight 106 lb 106 lb General: sitting in bed in no acute distress Chest: CTAB, no rales or wheezing Abdomen:soft, no CVA tenderness, NT, ND, positive bowel sounds Extremities: no edema Active Medications Heparin Sodium (Porcine) (Heparin -) 5,000 unit SQ TID [facility] Last Admin: 07/25/18 14:41 Dose: 5,000 unit Ceftriaxone Sodium 1 gm/ (Dextrose) 50 mls @ 200 mls/hr IVPB DAILY [facility]; Protocol Last Admin: 07/25/18 10:05 Dose: 200 mls/hr Insulin Aspart (Novolog Vial Sliding Scale -) 1 vial SQ ACHS [facility]; Protocol Last Admin: 07/25/18 12:18 Dose: 2 units Insulin Detemir (Levemir Vial) 5 units SQ HS [facility] Last Admin: 07/24/18 22:22 Dose: 5 units Ondansetron HCl (Zofran Injection) 4 mg IM Q6H PRN PRN Reason: NAUSEA Home Medications Medication Instructions Recorded Metformin HCl [Metformin HCl ER] 500 mg PO BID 07/23/18 Cefuroxime Axetil [Cefuroxime] 500 mg PO BID 7 Days #14 tablet 07/25/18 Glipizide 2.5 mg PO BID 30 Days #30 tablet 07/25/18 Miscellaneous Medical Supply 1 each AD ASDIR #1 kit 07/25/18 [Glucometer Device] Miscellaneous Medical Supply 1 each AD ASDIR #1 box 07/25/18 [Glucometer Test Strips #50] Laboratory Results - last 24 hr 07/24/18 07/24/18 07/25/18 17:08 22:22 06:15 WBC 4.2 RBC 4.57 Hgb 12.9 Hct 37.5 MCV 81.9 MCH 28.3 MCHC 34.5 RDW 12.4 Plt Count 236 MPV 7.2 L Sodium Potassium Chloride Carbon Dioxide Anion Gap BUN Creatinine Creat Clearance w eGFR POC Glucometer 158 179 Random Glucose Calcium Phosphorus Magnesium 07/25/18 07/25/18 07/25/18 06:15 06:35 12:00 WBC RBC Hgb Hct MCV MCH MCHC RDW Plt Count MPV Sodium 141 Potassium 3.8 Chloride 106 Carbon Dioxide 27 Anion Gap 8 BUN 9 Creatinine 0.5 L Creat Clearance w eGFR > 60 POC Glucometer 112 183 Random Glucose 101 Calcium 8.4 L Phosphorus 3.5 Magnesium 1.8 ASSESSMENT AND PLAN: 57yo F wtih PMH DM, renal stones and frequent "kidney infections" presented to the ER wtih epigastric pain [id number] and found to have UTI with suspected pyelonephritis -UTI+/- mild right sided pyelonephritis -Poorly controlled DM, A1c 12 -Epigastric pain -Gall bladder polyp -Renal stones Plan: Improved, afebrile. Urine cx neg. Given hyperglycemia, concerns of pyelonephritis on admission, treat 10 days ( Prior urine cx from 12/2017 reviewed). Cefuroxime 500 mg BID x 7 more days. Discussed with social work, insulin not covered. On very low dose 5 units hs with good control. DIscussed with Dr. Hodge, recommend Glipizide/metformin for now to ensure affordability and compliance. DIscussed need for close outpatient monitoring and hypoglycemia awareness. d/c home today with outpatient PCP/endocrine follow up. Plan discussed with patient in detail, all questions answered.
--- NOTE | 2018-07-25 16:09 | DS ---
Physical Exam: SUBJECTIVE: Patient seen and examined OBJECTIVE: Vital Signs Period Temp Pulse Resp BP Sys/Hemphill Pulse Ox Last 24 Hr 98.0 F-98.5 F 84-94 18-20 100-126/63-78 96-97 PHYSICAL EXAM GENERAL: The patient is awake, alert, and fully oriented, in no acute distress. HEAD: Normal with no signs of trauma. EYES: PERRL, extraocular movements intact, sclera anicteric, conjunctiva clear. ENT: Ears normal, nares patent, oropharynx clear without exudates, moist mucous membranes. NECK: Trachea midline, full range of motion, supple. LUNGS: Breath sounds equal, clear to auscultation bilaterally, no wheezes, no crackles, no accessory muscle use. HEART: Regular rate and rhythm, S1, S2 without murmur, rub or gallop. ABDOMEN: Soft, nontender, nondistended, normoactive bowel sounds, no guarding, no rebound, no hepatosplenomegaly, no masses. EXTREMITIES: 2+ pulses, warm, well-perfused, no edema. NEUROLOGICAL: Cranial nerves II through XII grossly intact. Normal speech, gait not observed. PSYCH: Normal mood, normal affect. SKIN: Warm, dry, normal turgor, no rashes or lesions noted. LABS Laboratory Results - last 24 hr 07/24/18 07/24/18 07/25/18 17:08 22:22 06:15 WBC 4.2 RBC 4.57 Hgb 12.9 Hct 37.5 MCV 81.9 MCH 28.3 MCHC 34.5 RDW 12.4 Plt Count 236 MPV 7.2 L Sodium Potassium Chloride Carbon Dioxide Anion Gap BUN Creatinine Creat Clearance w eGFR POC Glucometer 158 179 Random Glucose Calcium Phosphorus Magnesium 07/25/18 07/25/18 07/25/18 06:15 06:35 12:00 WBC RBC Hgb Hct MCV MCH MCHC RDW Plt Count MPV Sodium 141 Potassium 3.8 Chloride 106 Carbon Dioxide 27 Anion Gap 8 BUN 9 Creatinine 0.5 L Creat Clearance w eGFR > 60 POC Glucometer 112 183 Random Glucose 101 Calcium 8.4 L Phosphorus 3.5 Magnesium 1.8 Microbiology 07/23/18 16:32 Blood - Peripheral Venous Blood Culture - Preliminary NO GROWTH OBTAINED AFTER 24 HOURS, INCUBATION TO CONTINUE FOR 4 DAYS. 07/23/18 16:32 Blood - Peripheral Venous Blood Culture - Preliminary NO GROWTH OBTAINED AFTER 24 HOURS, INCUBATION TO CONTINUE FOR 4 DAYS. 07/23/18 15:15 Urine - Urine Clean Catch Urine Culture - Final NO GROWTH OBTAINED HOSPITAL COURSE: Date of Admission:07/23/18 57 y/o female with PMH of DM, renal calculi presented to the ED with worsening epigastric pain, nausea vomiting found to have a UTI in addition was found to be very hyperglycemic at 438. She usually takes metformin 500 BID. Patient has a positive UA so was started on ceftriaxone in addition had an ultrasound done which showed no signs of cholelithiasis or choledocholihiais. IN addition, patient had an abdominal/pelvic CT which didnt show any signs of pancreatitis or pyelonephritis. Patient was also started on insulin here at the hospital. Patients epigastric pain subsided, and her sugars were under control. However due to insurance issues patient could not be discharged home with insulin so she was discharged with instructions to c/w the metformin 500 BID in addition to starting her on glipizide 2.5 BID. she was given referrals for a PCP and an endocrinolgist. Date of Discharge: 07/25/18 Minutes to complete discharge: 39 Discharge Summary Reason For Visit: ACUTE PYELONEPHRITIS Current Active Problems Epigastric abdominal pain (Acute) Pyelonephritis (Acute) Condition: Stable - Instructions Diet, Activity, Other Instructions: You came to the emergency department with complaints of epigastric and abdominal pain in addition to very high sugars and a urinary tract infection. Please resume all of your home medications in addition: - We are adding another medication for your diabetes called glipizide 2.5 mg- however, the pill comes as a 5mg tablet so please break the pill in half and take it twice a day in addition to your metformin 500mg twice a day. please monitor for symptoms of low blood glucose as one of the side effects for this medication is hypoglycemia. -please take the antibiotic Cefuroxime 500mg twice a day for 7 more days We are also having the registered dietitian come and teach you the types of food to eat and not to eat. Please monitor your blood sugars before meals we are giving you a prescription for the materials necessary to check your sugars . Please make sure to check your blood sugar before each meal and at bedtime and maintain a diary. Notify your doctor if < 75 or persistently > 200 noted. Also make sure you always have sugar pills or sugar juice around. Education about low blood glucose and symptoms to be concerned about have been provided to you. It is very important that you follow up with regular doctor in 1 week and make sure your blood sugars are closely monitored on this medication. We advise that you follow up with your primary care physician within one week. If you do not have one we will refer you to one : Abigail Avilez [id number] We are also referring you to an anesthesiology resident, Dr Sosa that you should see within a week. If you begin to experience any chest pain, shortness of breath, abdominal/ epigastric pain, nausea or vomiting please return to the emergency room immediately. Referrals: Felipe Babin MD [Staff Physician] - 1 Week Miller Hodge MD [Staff Physician] - 1 Week Disposition: HOME - Home Medications Comprehensive Discharge Medication List: Ambulatory Orders Metformin HCl [Metformin HCl ER] 500 mg PO BID 07/23/18 Cefuroxime Axetil [Cefuroxime] 500 mg PO BID 7 Days #14 tablet 07/25/18 Glipizide 2.5 mg PO BID 30 Days #30 tablet 07/25/18 Miscellaneous Medical Supply [Glucometer Device] 1 each AD ASDIR #1 kit Miscellaneous Medical Supply [Glucometer Test Strips #50] 1 each AD ASDIR #1 box 07/25/18 Problem List - Problems (1) Epigastric abdominal pain Code(s): R10.13 - EPIGASTRIC PAIN (2) Dehydration Code(s): E86.0 - DEHYDRATION (3) Flank pain Code(s): R10.9 - UNSPECIFIED ABDOMINAL PAIN This patient is new to me today: No Emergency Visit: Yes ED Registration Date: 07/23/18 Care time: The patient presented to the Emergency Department on the above date and was hospitalized for further evaluation of their emergent condition. Critical Care patient: No - Discharge Referral Referred to [facility] No
--- NOTE | 2018-07-25 16:31 | CONSULT ---
Consult Consult Specialty:: Endocrinology Referred by:: Drea Morgan Reason for Consultation:: Hyperglycemia - History of Present Illness Chief Complaint: Nausea, vomiting History of Present Illness: This is a 57 y/o female with PMH of diabetes ( on metformin 500 BID), multiple episodes of pyelonephritis, renal stones requiring 2 procedures 10 years ago, presents to the ED with complaints of epigastric pain, nausea, vomiting, diarrhea. Of note patient had a colonoscopy at [facility] on 07/05/18 which showed internal hemorrhoid and polyp in the hepatic flexure, and since then wasnt feeling right. ER course was notable for Glucose 458. Ultrasound done: no evidence of cholecystitis or pancreatitis, but GB polyps found. Treated with carafate, zofran, malox, ceftriaxone (positive UTI), pepcid. Pt referred for management of blood sugar. As per patient the BGM at home is around 300s. No visual symptoms. - History Source History Provided By: Patient, Medical Record Limitations to Obtaining History: Poor Historian - Past Medical History Renal/: Yes: Renal Calculi, UTI ...: No Rheumatology: Yes: Other. No: Fibromyalgia, Gout, Lupus, Rheumatoid Arthritis, Sarcoidosis, Vasculitis Endocrine: Yes: Diabetes Mellitus - Alcohol/Substance Use Hx Alcohol Use: No - Smoking History Smoking history: Never smoked Have you smoked in the past 12 months: No Aproximately how many cigarettes per day: 0 Home Medications - Allergies Allergies/Adverse Reactions: Allergies Allergy/AdvReac Type Severity Reaction Status Date / Time diphenhydramine HCl Allergy fever Verified 07/23/18 12:31 [From Benadryl] - Home Medications Home Medications: Ambulatory Orders Metformin HCl [Metformin HCl ER] 500 mg PO BID 07/23/18 Cefuroxime Axetil [Cefuroxime] 500 mg PO BID 7 Days #14 tablet 07/25/18 Glipizide 2.5 mg PO BID 30 Days #30 tablet 07/25/18 Miscellaneous Medical Supply [Glucometer Device] 1 each AD ASDIR #1 kit Miscellaneous Medical Supply [Glucometer Test Strips #50] 1 each AD ASDIR #1 box 07/25/18 Review of Systems - Review of Systems Constitutional: reports: No Symptoms Eyes: reports: No Symptoms HENT: reports: No Symptoms Neck: reports: No Symptoms Cardiovascular: reports: No Symptoms Gastrointestinal: reports: No Symptoms Genitourinary: reports: No Symptoms Musculoskeletal: reports: No Symptoms Integumentary: reports: No Symptoms Neurological: reports: No Symptoms Endocrine: reports: No Symptoms Hematology/Lymphatic: reports: No Symptoms Physical Exam Vital Signs: Vital Signs Temperature 98.1 F 07/25/18 13:42 Pulse Rate 94 H 07/25/18 13:42 Respiratory Rate 18 07/25/18 13:42 Blood Pressure 106/63 07/25/18 13:42 O2 Sat by Pulse Oximetry (%) 97 07/25/18 08:00 Constitutional: Yes: No Distress, Calm Eyes: Yes: Conjunctiva Clear, EOM Intact HENT: Yes: Atraumatic, Normocephalic Neck: Yes: Supple, Trachea Midline Cardiovascular: Yes: Regular Rate and Rhythm Respiratory: Yes: Regular, CTA Bilaterally Gastrointestinal: Yes: Normal Bowel Sounds, Soft Musculoskeletal: Yes: WNL Extremities: Yes: WNL Edema: No Psychiatric: Yes: Alert, Oriented Labs: CBC, BMP 07/25/18 06:15 07/25/18 06:15 Assessment/Plan AP: T2 DM uncontrolled: A1c 12.0 BGM in the hospital has been relatively controlled Continue Metformin Add Glipizide 2.5mg BID with meals F/u with MD as outpt to adjust medications as necessary. UTI
== END 2018-07-25 18:26 | disposition home or self-care (01) ==
LOC: JER 11:55 → JERBED 15:54 → J5S 18:53
PROVIDERS: ADMIT Internal Medicine; ATTEND Hospitalist
PROC: 3E03329 Introduction of Other Anti-infective into Peripheral Vein, Percutaneous Approach (ICD-10-PCS; principal; 2018-07-23)
PROC: 3E013VG Introduction of Insulin into Subcutaneous Tissue, Percutaneous Approach (ICD-10-PCS; 2018-07-23)
PROC: 3E013VG Introduction of Insulin into Subcutaneous Tissue, Percutaneous Approach (ICD-10-PCS; 2018-07-23)
PROC: 3E013GC Introduction of Other Therapeutic Substance into Subcutaneous Tissue, Percutaneous Approach (ICD-10-PCS; 2018-07-23)
DX: N10 Acute pyelonephritis (principal); E11.65 Type 2 diabetes mellitus with hyperglycemia; Z79.84 Long term (current) use of oral hypoglycemic drugs; E86.0 Dehydration; K82.4 Cholesterolosis of gallbladder; Z87.891 Personal history of nicotine dependence; Z87.442 Personal history of urinary calculi
CPT/HCPCS: 36415; 74176; 76705-TC; 80048; 80053; 81003; 81015; 82009; 82550; 82962; 83036; 83605; 83690; 83735; 84100; 84484; 85025; 85027; 87040; 87086; 93005; 93010; 96365; 96372; 99284-25; G0378; J1644; J7030

== ENCOUNTER 2018-09-01 19:51 | Inpatient (IN) | payer OTHER ==
--- NOTE | 2018-09-01 20:11 | PDOC ---
Attending Attestation - HPI HPI: 09/01/18 21:36 The patient is a 57 year old female, with a significant PMH of multiple renal stones, NIDDM, who presents to the emergency department with 2 days of headache , fever and constant right flank pain. The patient states the right sided flank pain is rated 8/10 in intensity and is similar to prior kidney stones. The patient also states she has had 3 days of dark colored urine. The patient denies any recent travel. Denies recent coughing or sneezing. The patient denies chest pain, shortness of breath, and dizziness. Denies chills, nausea, vomit, diarrhea and constipation. Denies dysuria, frequency, urgency and hematuria. Allergies: diphenhydramine HCL Documentation prepared by Paul Eaton, acting as medical imaging specialist for Brooklyn Augustine MD. - Physicial Exam PE: 09/01/18 21:38 GENERAL: Awake, alert, and fully oriented, in no acute distress HEAD: No signs of trauma EYES: PERRLA, EOMI, sclera anicteric, conjunctiva clear ENT: Auricles normal inspection, hearing grossly normal, nares patent, oropharynx clear without exudates. Moist mucosa NECK: Normal ROM, supple, no lymphadenopathy, JVD, or masses LUNGS: (+) Crackles at the bases bilaterally. HEART: Regular rate and rhythm, normal S1 and S2, no murmurs, rubs or gallops ABDOMEN: Soft, nontender, normoactive bowel sounds. No guarding, no rebound. No masses BACK: (+) Right CVA tenderness to palpation. EXTREMITIES: Normal range of motion, no edema. No clubbing or cyanosis. No cords, erythema, or tenderness NEUROLOGICAL: Cranial nerves II through XII grossly intact. Normal speech SKIN: Warm, Dry, normal turgor, no rashes or lesions noted. <Paul Eaton - Last Filed: 09/01/18 21:36> - Resident Resident Name: Mandie Tejeda - ED Attending Attestation I have performed the following: I have examined & evaluated the patient, The case was reviewed & discussed with the resident, I agree w/resident's findings & plan - Medical Decision Making 09/01/18 23:58 Patient Name: YO CLAUDIO THIS IS A PRELIMINARY REPORT FROM [facility] DATE OF SERVICE: 2018-09-01 22:57:28 IMAGES: 556 EXAM: ABDOMEN \T\ PELVIS CT W/O CONTR HISTORY: Rule out nephrolithiasis COMPARISON: No prior scans have been transmitted for comparison FINDINGS: Positive for multiple bilateral renal stones (the stones are in a configuration that suggests medullary sponge kidney/renal tubular ectasia. It there such a history)? No ureteral stone or urinary tract obstruction at this time. No bowel obstruction or inflammation. Negative for diverticulitis or colitis. Negative for appendicitis. Normal liver. No obvious gallbladder abnormalities. Normal spleen. Normal pancreas. Normal adrenal glands. 1.9 cm left adnexal cyst. Osseous structures are intact. 09/03/18 06:18 Pt will be admitted for UTI and elevated LFTs <Brooklyn Augustine - Last Filed: 09/03/18 06:19>
--- NOTE | 2018-09-01 20:12 | PDOC ---
History of Present Illness - General Chief Complaint: SIRS, Suspected/Possible Stated Complaint: Headache/FEVER Time Seen by Provider: 09/01/18 20:09 History Source: Patient Exam Limitations: No Limitations - History of Present Illness Initial Comments: 09/01/18 20:11 57 year old man with history of multiple renal stones (10 years ago had 2 surgeries to remove stones), NIDDM (on metformin), recent routine colonoscopy ( 07/05/18) who presented to ED complaining of headache and fever. 2 days of 8/10 constant burning R sided flank pain, feels similar to prior kidney stones, reports dark urine for 3 days no N/V/D/C, no recent travel, no recent illness, coughing, sneezing. The patient last took Tylenol at 1830 at home, temp of 101F at 1800 under arm Recent cataract surgery 08/28/18 Past History - Past Medical History Allergies/Adverse Reactions: Allergies Allergy/AdvReac Type Severity Reaction Status Date / Time diphenhydramine HCl Allergy fever Verified 09/01/18 19:55 [From Benadryl] Home Medications: Ambulatory Orders Metformin HCl [Metformin HCl ER] 500 mg PO BID 07/23/18 Glipizide 2.5 mg PO BID 30 Days #30 tablet 07/25/18 Miscellaneous Medical Supply [Glucometer Device] 1 each AD ASDIR #1 kit Miscellaneous Medical Supply [Glucometer Test Strips #50] 1 each AD ASDIR #1 box 07/25/18 Cephalexin Monohydrate [Keflex -] 500 mg PO BID #14 capsule 09/01/18 Cephalexin Monohydrate [Keflex -] 500 mg PO BID #14 capsule 09/04/18 Lactobacillus Acidophilus [Bacid -] 1 tab PO DAILY #20 tab 09/04/18 COPD: No Diabetes: Yes Kidney Stones: Yes - Suicide/Smoking/Psychosocial Hx Smoking Status: No Smoking History: Never smoked Have you smoked in the past 12 months: No Number of Cigarettes Smoked Daily: 0 Hx Alcohol Use: No Drug/Substance Use Hx: No Substance Use Type: None Review of Systems - Review of Systems Able to Perform ROS?: Yes Is the patient limited Swedish proficient: No Constitutional: No: Chills, Diaphoresis, Fever HEENTM: No: Blurred Vision, Tinnitus Respiratory: No: Cough, Orthopnea, Shortness of Breath Cardiac (ROS): No: Chest Pain ABD/GI: No: Constipated, Diarrhea, Nausea, Rectal Bleeding, Vomiting : No: Burning, Dysuria, Flank Pain Musculoskeletal: Yes: Back Pain Neurological: No: Headache, Numbness, Tingling *Physical Exam - Vital Signs Last Vital Signs Temp Pulse Resp BP Pulse Ox 98.5 F 98 H 20 93/52 L 98 09/01/18 19:53 09/01/18 19:53 09/01/18 19:53 09/01/18 19:53 09/01/18 19:53 - Physical Exam Comments: 09/02/18 00:29 GENERAL: Awake, alert, and fully oriented, in no acute distress HEAD: No signs of trauma, normocephalic, atraumatic EYES: EOMI, sclera anicteric, conjunctiva clear ENT: oropharynx clear without exudates. Moist mucosa NECK: Normal ROM, supple LUNGS: No distress, speaks full sentences, clear to auscultation bilaterally HEART: Regular rate and rhythm, normal S1 and S2, no murmurs, rubs or gallops, peripheral pulses normal and equal bilaterally. ABDOMEN: Soft, slight RUQ tenderness to palpation, normoactive bowel sounds. No guarding, no rebound. No masses BACK: R CVA tenderness EXTREMITIES : Normal inspection, Normal range of motion, no edema. No clubbing or cyanosis. NEUROLOGICAL: Cranial nerves II through XII grossly intact. Normal speech, no focal sensorimotor deficits SKIN: Warm, Dry, normal turgor, no rashes or lesions noted Moderate Sedation - Procedure Monitoring Vital Signs: Procedure Monitoring Vital Signs Temperature 98.5 F 09/01/18 19:53 Pulse Rate 98 H 09/01/18 19:53 Respiratory Rate 20 09/01/18 19:53 Blood Pressure 93/52 L 09/01/18 19:53 O2 Sat by Pulse Oximetry (%) 98 09/01/18 19:53 ED Treatment Course - LABORATORY CBC & Chemistry Diagram: 09/04/18 06:00 09/04/18 06:00 Medical Decision Making - Medical Decision Making 09/02/18 00:29 57 year old man with history of multiple renal stones (10 years ago had 2 surgeries to remove stones), NIDDM (on metformin), recent routine colonoscopy ( 07/05/18) who presented to ED complaining of headache and fever. 2 days of 8/10 constant burning R sided flank pain, feels similar to prior kidney stones, reports dark urine for 3 days no N/V/D/C, no recent travel, no recent illness, coughing, sneezing. ED Course: nephrolithiasis vs pyelonephritis vs uti cbc, cmp, ua, ucx, transaminitis ua; uti keflex and ceftriaxone CT: bilateral renal calculi pending abd us patient admitted to medicine for further workup and evaluation *DC/Admit/Observation/Transfer Diagnosis at time of Disposition: UTI (lower urinary tract infection), Renal calculus, bilateral - Discharge Dispostion Disposition: HOME Condition at time of disposition: Stable Decision to Admit order: Yes - Prescriptions - Referrals - Patient Instructions - Post Discharge Activity
[2018-09-01] MEDS ORDERED: KETOROLAC TROMETHAMINE 30 MG/1 ML VIAL IVPUSH ONE (20:32)
[2018-09-01] MEDS ORDERED: SODIUM CHLORIDE 0.9% 500 ML INFUS.BAG IV ONE (21:18)
[2018-09-01] MEDS ORDERED: KETOROLAC TROMETHAMINE 30 MG/1 ML VIAL ONE (21:28)
[2018-09-01 21:50] LABS: BASO % 0.5 % (0-2.0); HEMOGLOBIN 11.5 GM/dL (10.7-15.3); LYMPH % 15.7 % (8-40); MCH 30.6 pg (25.7-33.7); MCHC 36.9 g/dl (32.0-36.0); MEAN CELL VOLUME 82.9 fl (80-96); MEAN PLT VOLUME 7.6 fl (7.5-11.1); MONO % 8.5 % (3.8-10.2); NEUT % 74.3 % (42.8-82.8); PLATELET COUNT 233 K/MM3 (134-434); RBC 3.75 M/mm3 (3.60-5.2); RDW 13.7 % (11.6-15.6); WHITE BLOOD COUNT 5.4 K/mm3 (4.0-10.0)
[2018-09-01 21:52] LABS: URINE APPEARANCE SLCLOUDY; URINE BILIRUBIN NEGATIVE (<2.0 mg/dL); URINE COLOR DKYELLOW; URINE GLUCOSE (UA) NEGATIVE (NEGATIVE); URINE KETONE NEGATIVE (NEGATIVE); URINE LEUK ESTERASE 3+ (NEGATIVE); URINE NITRITE POSITIVE (NEGATIVE); URINE PROTEIN NEGATIVE (NEGATIVE); URINE UROBILINOGEN NEGATIVE mg/dL (0.2-1.0)
[2018-09-01 21:54] LABS: VENOUS PC02 46.1 mmHg (38-52); VENOUS PH 7.38 (7.32-7.42); VENOUS PO2 31.7 mmHg (28-48)
[2018-09-01 21:57] LABS: EPI CELLS RARE /HPF (FEW); URINE BACTERIA MANY /hpf (NONE SEEN); URINE MUCUS RARE
[2018-09-01 22:05] LABS: INR 1.11 (0.83-1.09); PROTHROMBIN TIME (PATIENT) 13.1 SEC (9.7-13.0)
[2018-09-01 22:08] LABS: ACTIVATED PTT 25.2 SECONDS (25.2-36.5)
[2018-09-01 22:33] LABS: ALBUMIN 3.6 g/dl (3.4-5.0); ALK PHOS 151 U/L (45-117); ANION GAP 6 MMOL/L (8-16); BILIRUBIN,TOTAL 0.8 mg/dL (0.2-1); BLOOD UREA NITROGEN 14 mg/dL (7-18); CALCIUM 8.6 mg/dL (8.5-10.1); CHLORIDE 104 mmol/L (98-107); CO2 28 mmol/L (21-32); CREATININE 0.7 mg/dL (0.55-1.3); GLUCOSE,RANDOM 251 mg/dL (74-106); POTASSIUM 3.9 mmol/L (3.5-5.1); SGOT/AST 87 U/L (15-37); SGPT/ALT 122 U/L (13-61); SODIUM 138 mmol/L (136-145)
[2018-09-01] MEDS ORDERED: CEPHALEXIN MONOHYDRATE 500 MG CAPSULE (UD) PO ONE (22:42)
[2018-09-01] MEDS ORDERED: CEFTRIAXONE 1 GM in DEXTROSE 5%-WATER - 50 ML IVPB ONE (22:51)
[2018-09-02] MEDS: SODIUM CHLORIDE 1,000 ML IV SCH ×3 (00:50→21:08)
--- NOTE | 2018-09-02 01:15 | PN ---
Teaching Attending Note Name of Resident: Donald Balderrama ATTENDING PHYSICIAN STATEMENT I saw and evaluated the patient. I reviewed the resident's note and discussed the case with the resident. I agree with the resident's findings and plan as documented. SUBJECTIVE: Seen and examined with resident; please refer to their documentation for further historical information. Briefly, this is a 57 y/o with a PMH significant formultiple episodes of pyelonephritis, renal stones (states that she had 2 procedures to remeove them), pooly controlled DM (last A1c is 12 range , on MTF and glipizide as per Dr. Machado's DC summary insulin isn't covered by her insurance). She presents to the ER with fever and R-flank pain for several days with concern of recurring pyelonephritis. Finished abx Rx with [facility]. Prior Cx results discussed under objective. She was found to have a positive UA and on CT to have multiple renal stones. She is afebrile with low-normal BP. Will admit her to the medicine service. 10 sys ROS done and negative aside from HPI PMH and PSH reviewed FH asked and noncontributory Social hx reviewed Medication list reviewed; pending reconciliation OBJECTIVE: VS, labs, imaging reviewed NAD, AAO, resting comfortably in bed NC AT EOMI PERRLA RRR s1/2 no mgr NT ND but does have R-flank pain to fist percussion to CVA CN2-12 wnl, no fnd Labs reviewed; unremarkable CBC and chemistry with coags also unremarkable. Negative troponin. Chronically elevated LFTs. UA with 3+ LE and +Nitrate with 235 WBC and many bacteria seen. Negative flu. CT abdomen and pelvis reviewed; prelim read shows multiple renal stones in configuration suggesting renal tubular extasia/medullary sponge kidney. No obstruction noted. No comment made on size. US abd shows multiple GB polyps with no pericholecystic fluid or GB wall thickening and unremarkable pancreas Prior micro shows pansensative bacteria with ecoli 12/2017; klebsiella with ampicillin resistence but good ceftriaxone sn 2016. ASSESSMENT AND PLAN: Presents with sx suspect for recurrent pyelonephritis with no radiographic evidence of pyelo but +renal stones (nonobstructive, etc.) 1) Acute Recurrent Complicated Cystitis +/- Pyelonephritis -Patient presents with +sx and +UA with R-sided flank pain; she has stones there and the pain could be from pyelo or from the stones. There was no radiographic evidence of pyelonephritis on the preliminary CT. Followup the final report. -IV Ceftriaxone (based on prior micro this is OK). Followup blood and urine cx and trend CBC -LR@100cc/hr overnight then DC fluids. PRN pain control. 2) Recurring renal stones -No evidence of obstruction; no comment on their size -FU final report but likely can followup OP with urology. Noted history of prior instrumentation -Noted comment from radiology that the orientation of the stones can suggest a renal tubular ectasia, etc. 3) Uncontrolled DM -Prior A1c, etc. noted -Hold PO meds; SSI when inpatient. Resume PO at DC. Social barriers to good glucose control per DC summary last visit. FENA -LR@100cc/hr overnight then PO -PRN replete -Diabetic Diet -As tolerated Full Code
[2018-09-02] MEDS ORDERED: CEFTRIAXONE 1 GM/50 ML BAG ONE (03:09)
[2018-09-02] MEDS ORDERED: CEPHALEXIN MONOHYDRATE 500 MG CAPSULE (UD) ONE (03:09)
--- NOTE | 2018-09-02 03:59 | HP ---
<Donald Balderrama - Last Filed: 09/02/18 04:23> CHIEF COMPLAINT: Flank pain, fever HISTORY OF PRESENT ILLNESS: 57 y/o female with PMH of DM, episodes of pyelonephritis, renal stones ( x2 procedures to remove them), presented today because of R flank pain and subjective fever of 101 at home. She said the pain started 2 days ago. She describes the pain as burning, 8/10, constant, non radiating pain. She says the pain feels the same as her previous pyelonephritis episodes. She also endorses dark urine for 3 days. She was recently d/c on 07/25 for pyelonephritis and d/c on abx. She denies urinary symptoms except for dark urine. She denies chest pain, sob, nausea, vomiting, lightheadedness. ER course was notable for: (1) CT: Positive for multiple bilateral renal stones (the stones are in a configuration that suggests medullary sponge kidney/renal tubular ectasia. It there such a history)? No ureteral stone or urinary tract obstruction at this time. (2) UA+ LE 3+, WBC 235 (3) Ceftriaxone in ER, Tordol, 1 L bolus PAST MEDICAL HISTORY: per hpi Social History: Smoking: denies Alcohol:denies Drugs: denies Family History: Allergies diphenhydramine HCl [From Benadryl] Allergy (Verified 09/01/18 19:55) fever HOME MEDICATIONS: Home Medications Medication Instructions Recorded Metformin HCl [Metformin HCl ER] 500 mg PO BID 07/23/18 Cefuroxime Axetil [Cefuroxime] 500 mg PO BID 7 Days #14 tablet 07/25/18 Glipizide 2.5 mg PO BID 30 Days #30 tablet 07/25/18 Miscellaneous Medical Supply 1 each AD ASDIR #1 kit 07/25/18 [Glucometer Device] Miscellaneous Medical Supply 1 each AD ASDIR #1 box 07/25/18 [Glucometer Test Strips #50] Cephalexin Monohydrate [Keflex -] 500 mg PO BID #14 capsule 09/01/18 REVIEW OF SYSTEMS CONSTITUTIONAL: fevers, chills Absent: diaphoresis, generalized weakness, malaise, loss of appetite, weight change HEENT: Absent: rhinorrhea, nasal congestion, throat pain, throat swelling, difficulty swallowing, mouth swelling, ear pain, eye pain, visual changes CARDIOVASCULAR: Absent: chest pain, syncope, palpitations, irregular heart rate, lightheadedness , peripheral edema RESPIRATORY: Absent: cough, shortness of breath, dyspnea with exertion, orthopnea, wheezing, stridor, hemoptysis GASTROINTESTINAL: Absent: abdominal pain, abdominal distension, nausea, vomiting, diarrhea, constipation, melena, hematochezia GENITOURINARY: flank pain, dark urine, flank pain Absent: dysuria, frequency, urgency, hesitancy, hematuria, genital pain SKIN: Absent: rash, itching, pallor HEMATOLOGIC/IMMUNOLOGIC: Absent: easy bleeding, easy bruising, lymphadenopathy, frequent infections NEUROLOGIC: Absent: headache, focal weakness or paresthesias, dizziness, unsteady gait, seizure, mental status changes, bladder or bowel incontinence PHYSICAL EXAMINATION Vital Signs - 24 hr 09/01/18 09/02/18 09/02/18 19:53 00:20 03:10 Temperature 98.5 F 98.8 F Pulse Rate 98 H Pulse Rate [ 80 89 Left Radial] Respiratory 20 17 Rate Blood Pressure 93/52 L Blood Pressure 93/55 L 118/74 [Left Arm] O2 Sat by Pulse 98 98 100 Oximetry (%) GENERAL: Awake, alert, and fully oriented, in no acute distress. HEAD: Normal with no signs of trauma. EYES: Pupils equal, round and reactive to light, extraocular movements intact, sclera anicteric, conjunctiva clear. No lid lag. EARS, NOSE, THROAT: Ears normal, nares patent, oropharynx clear without exudates. Moist mucous membranes. NECK: Normal range of motion, supple without lymphadenopathy, JVD, or masses. LUNGS: Breath sounds equal, clear to auscultation bilaterally. No wheezes, and no crackles. No accessory muscle use. HEART: Regular rate and rhythm, normal S1 and S2 without murmur, rub or gallop. ABDOMEN: Soft, nontender, not distended, normoactive bowel sounds, +R CVA tenderness LOWER EXTREMITIES: 2+ pulses, warm, well-perfused. No calf tenderness. No peripheral edema. NEUROLOGICAL: Cranial nerves II-XII intact. Normal speech. Normal gait. SKIN: Warm, dry, normal turgor, no rashes or lesions noted, normal capillary refill. Laboratory Results - last 24 hr 09/01/18 09/01/18 09/01/18 21:10 21:20 21:26 WBC 5.4 RBC 3.75 Hgb 11.5 Hct 31.0 L D MCV 82.9 MCH 30.6 MCHC 36.9 H RDW 13.7 D Plt Count 233 MPV 7.6 Absolute Neuts (auto) 4.0 Neutrophils % 74.3 D Lymphocytes % 15.7 D Monocytes % 8.5 Eosinophils % 1.0 Basophils % 0.5 Nucleated RBC % 0 PT with INR INR PTT (Actin FS) VBG pH POC VBG pCO2 POC VBG pO2 Mixed VBG HCO3 Sodium Potassium Chloride Carbon Dioxide Anion Gap BUN Creatinine Creat Clearance w eGFR POC Glucometer Random Glucose Lactic Acid 1.1 Calcium Total Bilirubin AST ALT Alkaline Phosphatase Troponin I Total Protein Albumin Urine Color Urine Appearance Urine pH Ur Specific [place] Urine Protein Urine Glucose (UA) Urine Ketones Urine Blood Urine Nitrite Urine Bilirubin Urine Urobilinogen Ur Leukocyte Esterase Urine WBC (Auto) Urine RBC (Auto) Ur Epithelial Cells Urine Bacteria Urine Mucus Influenza A (Rapid) Negative Influenza B (Rapid) Negative 09/01/18 09/01/18 09/01/18 21:26 21:26 21:26 WBC RBC Hgb Hct MCV MCH MCHC RDW Plt Count MPV Absolute Neuts (auto) Neutrophils % Lymphocytes % Monocytes % Eosinophils % Basophils % Nucleated RBC % PT with INR 13.10 H INR 1.11 H PTT (Actin FS) 25.2 VBG pH 7.38 POC VBG pCO2 46.1 D POC VBG pO2 31.7 D Mixed VBG HCO3 26.7 H Sodium Potassium Chloride Carbon Dioxide Anion Gap BUN Creatinine Creat Clearance w eGFR POC Glucometer Random Glucose Lactic Acid Calcium Total Bilirubin AST ALT Alkaline Phosphatase Troponin I Total Protein Albumin Urine Color Dkyellow Urine Appearance Slcloudy Urine pH 5.0 Ur Specific [place] 1.017 Urine Protein Negative Urine Glucose (UA) Negative Urine Ketones Negative Urine Blood Negative Urine Nitrite Positive Urine Bilirubin Negative Urine Urobilinogen Negative Ur Leukocyte Esterase 3+ H Urine WBC (Auto) 235 Urine RBC (Auto) 5 Ur Epithelial Cells Rare Urine Bacteria Many Urine Mucus Rare Influenza A (Rapid) Influenza B (Rapid) 09/01/18 09/01/18 09/01/18 21:26 21:26 21:47 WBC RBC Hgb Hct MCV MCH MCHC RDW Plt Count MPV Absolute Neuts (auto) Neutrophils % Lymphocytes % Monocytes % Eosinophils % Basophils % Nucleated RBC % PT with INR INR PTT (Actin FS) VBG pH POC VBG pCO2 POC VBG pO2 Mixed VBG HCO3 Sodium 138 Potassium 3.9 Chloride 104 Carbon Dioxide 28 Anion Gap 6 L BUN 14 Creatinine 0.7 Creat Clearance w eGFR > 60 POC Glucometer 279.51932 Random Glucose 251 H Lactic Acid Calcium 8.6 Total Bilirubin 0.8 AST 87 H ALT 122 H Alkaline Phosphatase 151 H Troponin I < 0.02 Total Protein 7.0 Albumin 3.6 Urine Color Urine Appearance Urine pH Ur Specific [place] Urine Protein Urine Glucose (UA) Urine Ketones Urine Blood Urine Nitrite Urine Bilirubin Urine Urobilinogen Ur Leukocyte Esterase Urine WBC (Auto) Urine RBC (Auto) Ur Epithelial Cells Urine Bacteria Urine Mucus Influenza A (Rapid) Influenza B (Rapid) ASSESSMENT/PLAN: 57 y/o female with PMH of DM, episodes of pyelonephritis, renal stones ( x2 procedures to remove them), presented with R flank pain and subjective fever of 101 at home. #Acute Complicated Cystitis +/- Pyelonephritis -UA positive -Ceftriaxone 1x in ED -afebrile, no leukocytosis -Nephrolithiasis on CT, no evidence of Pyelo -IV fluids NS @ 100 -bcx, urine cx pending #Recurring renal stones -No evidence of obstruction; -FU final report #Uncontrolled DM -Prior A1c, etc. noted -ISS, BGMs -Hold Home meds -Social barriers to good glucose control per DC summary last visit. #FEN -NS @ 100 -monitor -Diabetic diet #DVT -Lovenox Visit type - Emergency Visit Emergency Visit: Yes ED Registration Date: 09/02/18 Care time: The patient presented to the Emergency Department on the above date and was hospitalized for further evaluation of their emergent condition. - New Patient This patient is new to me today: Yes Date on this admission: 09/02/18 - Critical Care Critical Care patient: No <Devan Kaiser - Last Filed: 09/11/18 20:34> Seen and examined;agree with all the above aside form as edited by me in my own note. Thank you. Was present for all vital parts of encounter; plan discussed with me. Agree with above as documented by the resident.
[2018-09-02] MEDS: INSULIN SLIDING SCALE (NOVOLOG) 1 VIAL SQ SCH ×4 (06:32→21:07)
[2018-09-02 07:39] LABS: BASO % 0.5 % (0-2.0); EOS % 0.9 % (0-4.5); HEMATOCRIT 31.3 % (32.4-45.2); HEMOGLOBIN 10.5 GM/dL (10.7-15.3); LYMPH % 15.5 % (8-40); MCH 28.1 pg (25.7-33.7); MCHC 33.6 g/dl (32.0-36.0); MEAN CELL VOLUME 83.6 fl (80-96); MONO % 8.1 % (3.8-10.2); PLATELET COUNT 187 K/MM3 (134-434); RBC 3.75 M/mm3 (3.60-5.2); RDW 13.5 % (11.6-15.6); WHITE BLOOD COUNT 4.8 K/mm3 (4.0-10.0)
[2018-09-02 08:17] LABS: ALBUMIN 2.9 g/dl (3.4-5.0); ALK PHOS 130 U/L (45-117); ANION GAP 7 MMOL/L (8-16); BILIRUBIN,TOTAL 0.5 mg/dL (0.2-1); BLOOD UREA NITROGEN 12 mg/dL (7-18); CALCIUM 7.7 mg/dL (8.5-10.1); CHLORIDE 108 mmol/L (98-107); CO2 25 mmol/L (21-32); CREATININE 0.5 mg/dL (0.55-1.3); GLUCOSE,RANDOM 146 mg/dL (74-106); POTASSIUM 3.7 mmol/L (3.5-5.1); SGOT/AST 60 U/L (15-37); SGPT/ALT 109 U/L (13-61); SODIUM 140 mmol/L (136-145); TOT PROT 5.9 g/dl (6.4-8.2)
--- NOTE | 2018-09-02 08:37 | EKG ---
Test Reason : Blood Pressure : / mmHG Vent. Rate : 087 BPM Atrial Rate : 087 BPM P-R Int : 158 ms QRS Dur : 068 ms QT Int : 362 ms P-R-T Axes : 050 077 064 degrees QTc Int : 435 ms NORMAL SINUS RHYTHM NORMAL ECG WHEN COMPARED WITH ECG OF 23-JUL-2018 13:14, NO SIGNIFICANT CHANGE WAS FOUND Confirmed by DYANA HASSAN MD ([id number]) on 09/02/2018 8:37:25 AM Referred By: Confirmed By:DYANA HASSAN MD
[2018-09-02] MEDS: ENOXAPARIN NA (PORCINE) 30 MG/0.3 ML DISP.SYRIN SQ SCH (09:14)
[2018-09-02] MEDS: IBUPROFEN 400 MG TABLET (FP) PO PRN (13:42)
[2018-09-02] MEDS: LACTOBACILLUS ACIDOPHILUS 1 TABLET PO SCH (13:49)
[2018-09-02] MEDS: CEFTRIAXONE 2 GM in DEXTROSE 5%-WATER 100 ML IVPB SCH (13:49)
--- NOTE | 2018-09-02 14:33 | PN ---
Progress Note, Physician Chief Complaint: Ms Kessler complains of back pain, 05/31. No cp, sob, n/v. - Current Medication List Current Medications: Active Medications Docusate Sodium (Colace -) 100 mg PO BID [facility] Enoxaparin Sodium (Lovenox -) 30 mg SQ DAILY [facility] Last Admin: 09/02/18 09:14 Dose: 30 mg Sodium Chloride (Normal Saline -) 1,000 mls @ 100 mls/hr IV ASDIR [facility] Last Admin: 09/02/18 09:14 Dose: 100 mls/hr Ceftriaxone Sodium 2 gm/ (Dextrose) 100 mls @ 200 mls/hr IVPB DAILY [facility]; Protocol Last Admin: 09/02/18 13:49 Dose: 200 mls/hr Ibuprofen (Motrin -) 400 mg PO Q6H PRN PRN Reason: FEVER Last Admin: 09/02/18 13:42 Dose: 400 mg Insulin Aspart (Novolog Vial Sliding Scale -) 1 vial SQ ACHS [facility]; Protocol Last Admin: 09/02/18 11:53 Dose: 2 units Lactobacillus Acidophilus (Bacid -) 1 tab PO DAILY [facility] Last Admin: 09/02/18 13:49 Dose: 1 tab Morphine Sulfate (Morphine Injection -) 2 mg IVPUSH Q4H PRN PRN Reason: PAIN LEVEL 6-10 Polyethylene Glycol (Miralax (For Daily Use) -) 17 gm PO BID [facility] - Objective Vital Signs: Vital Signs Temperature 39.1 C H 09/02/18 13:30 Pulse Rate 16 L 09/02/18 09:00 Respiratory Rate 18 09/02/18 09:00 Blood Pressure 102/60 09/02/18 09:00 O2 Sat by Pulse Oximetry (%) 98 09/02/18 09:00 Constitutional: Yes: No Distress, Calm, Thin Cardiovascular: Yes: Regular Rate and Rhythm. No: Gallop, Murmur, Rub Respiratory: Yes: Regular, CTA Bilaterally. No: Rales, Rhonchi, Wheezes Gastrointestinal: Yes: Normal Bowel Sounds, Soft. No: Distention, Tenderness Extremities: Yes: WNL Edema: No Labs: CBC, BMP 09/02/18 07:00 09/02/18 07:00 INR, PTT INR 1.11 (0.83-1.09) H 09/01/18 21:26 Problem List - Problems (1) Pyelonephritis, acute Assessment/Plan: -urine positive, and symptoms of pyelonephritis -rocephin 2gm IV daily -hydration with NS -pain control -follow up cultures -motrin for fevers since slightly elevated LFTs Code(s): N10 - ACUTE PYELONEPHRITIS (2) Renal calculus, bilateral Assessment/Plan: -noted on CT scan -await official read Code(s): N20.0 - CALCULUS OF KIDNEY (3) Diabetes Assessment/Plan: -diabetic diet -FSBS and SSI Code(s): E11.9 - TYPE 2 DIABETES MELLITUS WITHOUT COMPLICATIONS
[2018-09-02] MEDS: MORPHINE SULFATE 2 MG/ML VIAL IVPUSH PRN (14:44)
[2018-09-02] MEDS: DOCUSATE SODIUM 100 MG CAPSULE (FP) PO SCH (21:07)
[2018-09-02] MEDS: POLYETHYLENE GLYCOL 3350 119 GM BTL PO SCH (21:07)
[2018-09-03] MEDS: IBUPROFEN 400 MG TABLET (FP) PO PRN ×2 (03:10→18:11)
[2018-09-03] MEDS: SODIUM CHLORIDE 1,000 ML IV SCH ×3 (04:49→15:56)
[2018-09-03] MEDS: INSULIN SLIDING SCALE (NOVOLOG) 1 VIAL SQ SCH ×4 (06:41→22:27)
[2018-09-03 08:34] LABS: BASO % 0.4 % (0-2.0); EOS % 1.1 % (0-4.5); HEMATOCRIT 31.6 % (32.4-45.2); HEMOGLOBIN 10.6 GM/dL (10.7-15.3); LYMPH % 28.9 % (8-40); MCH 28.6 pg (25.7-33.7); MCHC 33.5 g/dl (32.0-36.0); MEAN CELL VOLUME 85.4 fl (80-96); MEAN PLT VOLUME 7.4 fl (7.5-11.1); MONO % 10.1 % (3.8-10.2); NEUT % 59.5 % (42.8-82.8); PLATELET COUNT 191 K/MM3 (134-434); RDW 13.5 % (11.6-15.6); WHITE BLOOD COUNT 4.9 K/mm3 (4.0-10.0)
[2018-09-03 08:57] LABS: ALBUMIN 2.9 g/dl (3.4-5.0); ALK PHOS 197 U/L (45-117); ANION GAP 8 MMOL/L (8-16); BILIRUBIN,TOTAL 0.6 mg/dL (0.2-1); BLOOD UREA NITROGEN 9 mg/dL (7-18); CALCIUM 8.2 mg/dL (8.5-10.1); CHLORIDE 110 mmol/L (98-107); CO2 24 mmol/L (21-32); CREATININE 0.4 mg/dL (0.55-1.3); GLUCOSE,RANDOM 109 mg/dL (74-106); MAGNESIUM 1.7 mg/dL (1.8-2.4); PHOSPHOROUS 2.8 mg/dL (2.5-4.9); POTASSIUM 3.9 mmol/L (3.5-5.1); SGOT/AST 60 U/L (15-37); SGPT/ALT 116 U/L (13-61); SODIUM 141 mmol/L (136-145); TOT PROT 5.9 g/dl (6.4-8.2)
[2018-09-03] MEDS ORDERED: DEXTROSE 5%-WATER 100 ML IVPB ONE (09:17)
[2018-09-03] MEDS: ENOXAPARIN NA (PORCINE) 30 MG/0.3 ML DISP.SYRIN SQ SCH (09:20)
[2018-09-03] MEDS: POLYETHYLENE GLYCOL 3350 119 GM BTL PO SCH ×2 (09:20→22:25)
[2018-09-03] MEDS: LACTOBACILLUS ACIDOPHILUS 1 TABLET PO SCH (09:20)
[2018-09-03] MEDS: DOCUSATE SODIUM 100 MG CAPSULE (FP) PO SCH ×2 (09:20→22:25)
[2018-09-03] MEDS: CEFTRIAXONE 2 GM in DEXTROSE 5%-WATER 100 ML IVPB SCH (09:20)
[2018-09-03] MEDS ORDERED: MAGNESIUM SULF 50% (8.12 MEQ/2 ML-1 GM VIAL) IVPB ONE (11:50)
--- NOTE | 2018-09-03 12:17 | PN ---
Progress Note, Physician Chief Complaint: Ms Kessler says she is feeling better today. Pain is improving. No cp, sob, n/v. - Current Medication List Current Medications: Active Medications Docusate Sodium (Colace -) 100 mg PO BID [facility] Last Admin: 09/03/18 09:20 Dose: 100 mg Enoxaparin Sodium (Lovenox -) 30 mg SQ DAILY [facility] Last Admin: 09/03/18 09:20 Dose: 30 mg Sodium Chloride (Normal Saline -) 1,000 mls @ 100 mls/hr IV ASDIR [facility] Last Admin: 09/03/18 05:29 Dose: 100 mls/hr Ceftriaxone Sodium 2 gm/ (Dextrose) 100 mls @ 200 mls/hr IVPB DAILY [facility]; Protocol Last Admin: 09/03/18 09:20 Dose: 200 mls/hr Ibuprofen (Motrin -) 400 mg PO Q6H PRN PRN Reason: FEVER Last Admin: 09/03/18 03:10 Dose: 400 mg Insulin Aspart (Novolog Vial Sliding Scale -) 1 vial SQ ACHS [facility]; Protocol Last Admin: 09/03/18 11:27 Dose: 4 units Lactobacillus Acidophilus (Bacid -) 1 tab PO DAILY [facility] Last Admin: 09/03/18 09:20 Dose: 1 tab Morphine Sulfate (Morphine Sulfate) 2 mg IVPUSH Q4H PRN PRN Reason: PAIN LEVEL 6-10 Last Admin: 09/02/18 14:44 Dose: 2 mg Polyethylene Glycol (Miralax (For Daily Use) -) 17 gm PO BID [facility] Last Admin: 09/03/18 09:20 Dose: 17 gm - Objective Vital Signs: Vital Signs Temperature 36.8 C 09/03/18 08:54 Pulse Rate 82 09/03/18 08:54 Respiratory Rate 82 H 09/03/18 08:54 Blood Pressure 106/60 09/03/18 08:54 O2 Sat by Pulse Oximetry (%) 98 09/03/18 09:00 Constitutional: Yes: Well Nourished, No Distress, Calm Cardiovascular: Yes: Regular Rate and Rhythm. No: Gallop, Murmur, Rub Respiratory: Yes: Regular, CTA Bilaterally. No: Rales, Rhonchi, Wheezes Gastrointestinal: Yes: Normal Bowel Sounds, Soft. No: Distention, Tenderness Extremities: Yes: WNL Edema: No Labs: CBC, BMP 09/03/18 07:00 09/03/18 07:00 INR, PTT INR 1.11 (0.83-1.09) H 09/01/18 21:26 Problem List - Problems (1) Pyelonephritis, acute Code(s): N10 - ACUTE PYELONEPHRITIS (2) Renal calculus, bilateral Code(s): N20.0 - CALCULUS OF KIDNEY (3) Diabetes Code(s): E11.9 - TYPE 2 DIABETES MELLITUS WITHOUT COMPLICATIONS Assessment/Plan (1) Pyelonephritis, acute Assessment/Plan: -urine cultures positive -continue rocephin 2gm IV daily -improving Code(s): N10 - ACUTE PYELONEPHRITIS (2) Renal calculus, bilateral Assessment/Plan: -chronic -no obstruction/hydronephrosis Code(s): N20.0 - CALCULUS OF KIDNEY (3) Diabetes Assessment/Plan: -diabetic diet -FSBS and SSI Code(s): E11.9 - TYPE 2 DIABETES MELLITUS WITHOUT COMPLICATIONS
[2018-09-03] MEDS: MORPHINE SULFATE 2 MG/ML VIAL IVPUSH PRN (15:54)
[2018-09-04] MEDS: SODIUM CHLORIDE 1,000 ML IV SCH (01:29)
[2018-09-04] MEDS: INSULIN SLIDING SCALE (NOVOLOG) 1 VIAL SQ SCH ×3 (06:03→15:55)
[2018-09-04 07:50] LABS: BASO % 0.4 % (0-2.0); EOS % 3.4 % (0-4.5); HEMATOCRIT 30.5 % (32.4-45.2); LYMPH % 34.2 % (8-40); MCH 29.8 pg (25.7-33.7); MCHC 35.9 g/dl (32.0-36.0); MEAN PLT VOLUME 7.8 fl (7.5-11.1); MONO % 12.3 % (3.8-10.2); NEUT % 49.7 % (42.8-82.8); PLATELET COUNT 210 K/MM3 (134-434); RBC 3.67 M/mm3 (3.60-5.2); RDW 13.9 % (11.6-15.6); WHITE BLOOD COUNT 3.8 K/mm3 (4.0-10.0)
[2018-09-04 08:34] LABS: ALK PHOS 249 U/L (45-117); ANION GAP 9 MMOL/L (8-16); BILIRUBIN,DIRECT 0.2 mg/dL (0.0-0.2); BILIRUBIN,TOTAL 0.7 mg/dL (0.2-1); BLOOD UREA NITROGEN 9 mg/dL (7-18); CALCIUM 8.1 mg/dL (8.5-10.1); CHLORIDE 109 mmol/L (98-107); CO2 23 mmol/L (21-32); CREATININE 0.4 mg/dL (0.55-1.3); GLUCOSE,RANDOM 131 mg/dL (74-106); MAGNESIUM 2.1 mg/dL (1.8-2.4); SGOT/AST 42 U/L (15-37); SGPT/ALT 97 U/L (13-61); SODIUM 141 mmol/L (136-145); TOT PROT 6.2 g/dl (6.4-8.2)
[2018-09-04] MEDS ORDERED: DEXTROSE 5%-WATER 100 ML IVPB ONE (09:15)
[2018-09-04] MEDS: LACTOBACILLUS ACIDOPHILUS 1 TABLET PO SCH (09:34)
[2018-09-04] MEDS: CEFTRIAXONE 2 GM in DEXTROSE 5%-WATER 100 ML IVPB SCH (09:34)
[2018-09-04] MEDS: DOCUSATE SODIUM 100 MG CAPSULE (FP) PO SCH (09:34)
[2018-09-04] MEDS: POLYETHYLENE GLYCOL 3350 119 GM BTL PO SCH (09:34)
[2018-09-04] MEDS: ENOXAPARIN NA (PORCINE) 30 MG/0.3 ML DISP.SYRIN SQ SCH (09:34)
[2018-09-04 12:55] VITALS: BP 113/60; PULSE 79; TEMP 98.2
[2018-09-04 12:58] VITALS: BMI 18.1
--- NOTE | 2018-09-04 16:30 | DS ---
Physical Examination Vital Signs: Vital Signs Temperature 36.8 C 09/04/18 08:00 Pulse Rate 79 09/04/18 08:00 Respiratory Rate 20 09/04/18 08:00 Blood Pressure 113/60 09/04/18 08:00 O2 Sat by Pulse Oximetry (%) 98 09/04/18 08:00 Constitutional: Yes: Well Nourished, No Distress, Calm Cardiovascular: Yes: Regular Rate and Rhythm. No: Gallop, Murmur, Rub Respiratory: Yes: Regular, CTA Bilaterally. No: Rales, Rhonchi, Wheezes Gastrointestinal: Yes: Normal Bowel Sounds, Soft. No: Distention, Tenderness Extremities: Yes: WNL Edema: No Labs: CBC, BMP 09/04/18 06:00 09/04/18 06:00 Discharge Summary Reason For Visit: LOWER URINARY TRACT INFECTIOUS DISEASE CALCULUS OF Current Active Problems Renal calculus, bilateral (Acute) UTI (lower urinary tract infection) (Acute) Hospital Course: (1) Pyelonephritis, acute Code(s): N10 - ACUTE PYELONEPHRITIS (2) Renal calculus, bilateral Code(s): N20.0 - CALCULUS OF KIDNEY (3) Diabetes Code(s): E11.9 - TYPE 2 DIABETES MELLITUS WITHOUT COMPLICATIONS Ms Kessler is a very pleasant 57 year old female who comes in with acute pyelonephritis. She was admitted and started on rocephin 2gm IV daily. She improved significantly on antibiotics. Her urine cultures came back and grew e coli sensitive to cephalosporins. She is safe for discharge on keflex and follow up with her PCP. 31 minutes spent in preparation of this discharge Condition: Stable - Instructions Referrals: ON STAFF,NOT [Primary Care Provider] - Disposition: HOME - Home Medications Comprehensive Discharge Medication List: Ambulatory Orders Metformin HCl [Metformin HCl ER] 500 mg PO BID 07/23/18 Glipizide 2.5 mg PO BID 30 Days #30 tablet 07/25/18 Miscellaneous Medical Supply [Glucometer Device] 1 each AD ASDIR #1 kit [employer] [Glucometer Test Strips #50] 1 each AD ASDIR #1 box 07/25/18 Cephalexin Monohydrate [Keflex -] 500 mg PO BID #14 capsule 09/01/18 Cephalexin Monohydrate [Keflex -] 500 mg PO BID #14 capsule 09/04/18 Lactobacillus Acidophilus [Bacid -] 1 tab PO DAILY #20 tab 09/04/18
[2018-09-05 02:13] LABS: HEP.C VIRUS AB 0.1 s/co ratio (0.0-0.9)
== END 2018-09-04 18:31 | disposition home or self-care (01) | DRG 463 ==
LOC: JER 19:51 → JERBED 09-02 00:28 → J6S 09-02 05:10
PROVIDERS: ADMIT Internal Medicine; ATTEND Internal Medicine
DX: N10 Acute pyelonephritis (principal); N20.0 Calculus of kidney; E11.65 Type 2 diabetes mellitus with hyperglycemia
CPT/HCPCS: 36415; 74176-TC; 76705-TC; 80048; 80053; 80074; 80076; 81003; 81015; 82803; 82962; 83605; 83735; 84100; 84484; 85025; 85610; 85730; 87040; 87086; 87186; 87804; 93005; 93010; 99284-25; J7030

== ENCOUNTER 2019-02-22 11:57 | Inpatient (IN) | payer OTHER ==
[2019-02-22 12:10] VITALS: BMI 21.4
[2019-02-22] MEDS ORDERED: SODIUM CHLORIDE 1,000 ML IV STA (12:37)
[2019-02-22 12:46] LABS: RBC 4.25 M/mm3 (3.60-5.2)
[2019-02-22] MEDS ORDERED: METOCLOPRAMIDE HCL INJECTION 10 MG/2 ML VIAL IVPUSH ONE (12:47)
[2019-02-22] MEDS ORDERED: ACETAMINOPHEN 1000 MG/100 ML VIAL (NON FORMULARY) IVPB ONE (12:47)
[2019-02-22] MEDS ORDERED: METOCLOPRAMIDE HCL INJECTION 10 MG/2 ML VIAL ONE (12:48)
[2019-02-22] MEDS ORDERED: ACETAMINOPHEN INJECTION 100 ML IVPB ONE (12:48)
[2019-02-22 12:51] LABS: EPI CELLS 1.8 /HPF (0-5/HPF); HYALINE CASTS 1 /lpf (0-8); PH,URINE 5.5 (5.0-8.0); URINE APPEARANCE CLOUDY; URINE BILIRUBIN NEGATIVE (NEGATIVE); URINE COLOR YELLOW; URINE GLUCOSE (UA) 2+ (NEGATIVE); URINE KETONE NEGATIVE (NEGATIVE); URINE LEUK ESTERASE 3+ (NEGATIVE); URINE NITRITE POSITIVE (NEGATIVE); URINE PROTEIN TRACE (NEGATIVE); URINE RBC 3 /hpf (0-4); URINE WBC 196 /hpf (0-5)
--- NOTE | 2019-02-22 12:58 | PDOC ---
History of Present Illness - General Chief Complaint: Back Pain Stated Complaint: BACK PAIN Time Seen by Provider: 02/22/19 12:17 History Source: Patient, Family Exam Limitations: No Limitations - History of Present Illness Initial Comments: 02/22/19 12:53 58F with PMH of DM, bilateral renal calculi, pyelonephritis here for headache and lower back pain. Reports 3 days dull bulateral lower back pain bilaterally, ignored until last night when headache started. Denies abdominal pain, constipation, diarrhea, recent back strain. Some nausea with looking up, but PO intake good with no vomiting. Patient reports headache is similar to those that formed prior to episodes of worsening pyelonephritis. Denies frequency, urgency, dysuria, hematuria. Reports some darkened urine. Taking metformin 1000mg bid and glipizide 2.5mg qd. No fever/chills. No chest pain/SOB/cough. No sick contacts. Last admission for pyelo at [facility] August 2018, gaming-sensitive E.coli. Past History - Past Medical History Allergies/Adverse Reactions: Allergies Allergy/AdvReac Type Severity Reaction Status Date / Time diphenhydramine HCl Allergy fever Verified 02/22/19 12:04 [From Benadryl] Home Medications: Ambulatory Orders Metformin HCl [Metformin HCl ER] 1,000 mg PO BID 07/23/18 Glipizide 2.5 mg PO BID 30 Days #30 tablet 07/25/18 Cephalexin Monohydrate [Keflex -] 500 mg PO BID #16 capsule 02/23/19 COPD: No Diabetes: Yes Kidney Stones: Yes - Suicide/Smoking/Psychosocial Hx Smoking Status: No Smoking History: Never smoked Have you smoked in the past 12 months: No Number of Cigarettes Smoked Daily: 0 Hx Alcohol Use: No Drug/Substance Use Hx: No Substance Use Type: None Review of Systems - Review of Systems Able to Perform ROS?: Yes Is the patient limited Estonian proficient: No Constitutional: Yes: See HPI. No: Chills, Fever, Loss of Appetite HEENTM: Yes: See HPI. No: Throat Pain, Mouth Pain, Dental Problems Respiratory: Yes: See HPI. No: Cough, Shortness of Breath, Wheezing, Productive cough Cardiac (ROS): No: Chest Pain, Edema, Palpitations, Syncope ABD/GI: Yes: Nausea. No: Abdominal Distended, Abd. Pain w/ defecation, Constipated, Diarrhea, Difficulty Swallowing, Poor Appetite, Rectal Bleeding, Vomiting : Yes: See HPI, Flank Pain. No: Burning, Dysuria, Discharge, Frequency, Hematuria, Incontinence, Pain, Urgency Musculoskeletal: Yes: Back Pain. No: Neck Pain Integumentary: No: Dryness, Erythema, Pallor, Pruritus, Rash, Sweating Neurological: Yes: Headache. No: Numbness, Paresthesia, Weakness, Unsteady Gait Endocrine: No: Increased Thirst, Increased Urine Hematologic/Lymphatic: No: Anemia, Easy Bleeding *Physical Exam - Vital Signs Last Vital Signs Temp Pulse Resp BP Pulse Ox 98.3 F 83 14 90/53 L 100 02/22/19 12:06 02/22/19 12:06 02/22/19 12:06 02/22/19 12:06 02/22/19 12:06 - Physical Exam General Appearance: Yes: Nourished, Appropriately Dressed. No: Apparent Distress HEENT: positive: Normal Voice, Symmetrical, Hearing Grossly Normal. negative: Scleral Icterus (R), Scleral Icterus (L), Rhinorrhea, Hearing Decreased Neck: positive: Trachea midline, Supple Respiratory/Chest: positive: Lungs Clear, Normal Breath Sounds. negative: Chest Tender, Respiratory Distress, Accessory Muscle Use, Decreased Breath Sounds, Crackles, Rales, Rhonchi Cardiovascular: positive: Regular Rhythm, Regular Rate. negative: Edema, Murmur Gastrointestinal/Abdominal: positive: Normal Bowel Sounds, Flat, Soft. negative : Tender, Hernia, Mass Musculoskeletal: positive: CVA Tenderness (R), CVA Tenderness (L) Extremity: positive: Normal Capillary Refill, Normal Inspection, Normal Range of Motion Integumentary: positive: Normal Color, Dry, Warm Neurologic: positive: Fully Oriented, Alert, Normal Mood/Affect, Normal Response ED Treatment Course - LABORATORY CBC & Chemistry Diagram: 02/23/19 05:47 02/23/19 05:47 - ADDITIONAL ORDERS Additional order review: Laboratory Results 02/22/19 12:35 Urine Color Yellow Urine Appearance Cloudy Urine pH 5.5 Ur Specific [place] 1.014 Urine Protein Trace Urine Glucose (UA) 2+ H Urine Ketones Negative Urine Blood Trace Urine Nitrite Positive H Urine Bilirubin Negative Urine Urobilinogen 1.0 Ur Leukocyte Esterase 3+ H Urine WBC (Auto) 196 Urine RBC (Auto) 3 Urine Casts (Auto) 1 U Epithel Cells (Auto) 1.8 Urine Bacteria (Auto) 1746.0 Medical Decision Making - Medical Decision Making 02/22/19 13:03 Frida Kessler is a 58F with PMH DM, bilateral non-obstructing renal calculi, and pyelonephritis presenting with headache and lower back pain. Given history of renal calculi with darker urine, worsening headache, and hypotension 90/53 on admission, primary concern for pyelonephritis vs. bilateral obstructing renal calculi. Will obtain CMP, CBC, UA, UC. Give 1L NS for hypotension. 02/22/19 13:07 Repeat BP improved to 101/63, will continue to monitor as fluid administered. 02/22/19 13:45 Urinalysis shows large bacteria, leuk esterase and nitrites positive suggestive of UTI vs. pyelo. Prior culture sensitivities from pyelo in August 2018 show gaming-sensitive E. coli. Started empiric 1g IV ceftrixone for UTI. 02/22/19 14:04 Performed bedside renal/bladder US, R kidney appears normal, L kidney possible upper hydronephrosis, bladder normal. Sending for formal bilateral renal US. 02/22/19 15:26 US reads bilateral calculi stable from last study, noted L side cyst recommended for follow-up at a later date. 02/22/19 16:53 Spoke with hospitalist resident Mcdaniel for admission. 02/22/19 17:[address] Cardenas spoke at length with patient about admission vs. discharge. Patient would like to stay inpatient to receive IV antibiotics and fluids as she recovers from an acute UTI. Will be admitted to inpatient service at this time. *DC/Admit/Observation/Transfer Diagnosis at time of Disposition: UTI (lower urinary tract infection) - Discharge Dispostion Disposition: HOME Condition at time of disposition: Stable - Referrals - Patient Instructions - Post Discharge Activity
[2019-02-22 13:14] LABS: ALBUMIN 3.5 g/dl (3.4-5.0); BILIRUBIN,TOTAL 0.9 mg/dL (0.2-1); BLOOD UREA NITROGEN 20.7 mg/dL (7-18); CALCIUM 8.7 mg/dL (8.5-10.1); CREATININE 0.8 mg/dL (0.55-1.3); POTASSIUM 3.7 mmol/L (3.5-5.1); TOT PROT 6.8 g/dl (6.4-8.2)
[2019-02-22 13:16] LABS: BASO % 0.6 % (0-2.0); EOS % 3.6 % (0-4.5); HEMATOCRIT 34.8 % (32.4-45.2); HEMOGLOBIN 12.1 GM/dL (10.7-15.3); LYMPH % 29.2 % (8-40); MCH 28.5 pg (25.7-33.7); MCHC 34.8 g/dl (32.0-36.0); MEAN CELL VOLUME 81.9 fl (80-96); MEAN PLT VOLUME 8.2 fl (7.5-11.1); MONO % 11.3 % (3.8-10.2); NEUT % 55.3 % (42.8-82.8); RDW 12.7 % (11.6-15.6); WHITE BLOOD COUNT 4.4 K/mm3 (4.0-10.0)
--- NOTE | 2019-02-22 13:17 | PDOC ---
Documentation entered by Dex Mathur SCRIBE, acting as scribe for Gudelia Shipley MD. Gudelia Shipley MD: This documentation has been prepared by the Kareen griffith Nirvannie, SCRIBE, under my direction and personally reviewed by me in its entirety. I confirm that the documentation accurately reflects all work, treatment, procedures, and medical decision making performed by me. Attending Attestation - Resident Resident Name: Neftali Coy - ED Attending Attestation I have performed the following: I have examined & evaluated the patient, The case was reviewed & discussed with the resident, I agree w/resident's findings & plan - HPI HPI: 02/22/19 13:11 The patient is a 58 year old female, with a significant past medical history of multiple renal stones (10 years ago had 2 surgeries to remove stones), NIDDM, and prior admission for pyelonephritis, who presents to the emergency department with, 3 days of worsening lower back pain, headache, and concentrated (dark) urine. She denies recent fevers or chills. She denies recent dysuria, frequency, urgency or hematuria. She denies recent chest pain or shortness of breath. Allergies: Diphenhydramine HCl - Physicial Exam PE: 02/22/19 12:52 GENERAL: The patient is in no acute distress. ENT: Ears normal, nares patent, oropharynx clear without exudates. Moist mucous membranes. NECK: Normal range of motion, supple LUNGS: Breath sounds equal, clear to auscultation bilaterally. No wheezes, and no crackles. HEART:Regular rate and rhythm, normal S1 and S2 without murmur, rub or gallop. ABDOMEN: Soft, suprapubic tenderness to palpation, (+) bilateral CVAT EXTREMITIES: Normal range of motion, no edema. NEUROLOGICAL: Cranial nerves II through XII grossly intact. Normal speech. No focal neurological deficits. SKIN: Warm, Dry, normal turgor, no rashes or lesions noted. 02/22/19 12:57 - Medical Decision Making 02/22/19 12:57 58 yo F h/o NIDDM on Metformin presenting with flank pain and headache Prior admissions for pyelonephritis CT from 09/09 - medullary nephrocalcinosis bilaterally, Left renal cortical scarring/atrophy DD: Renal stone, Pyelonephritis, cystitis Will do: LAbs UA/Uculture Spiral CT IVF Tylenol/Reglan 02/22/19 13:06 Laboratory Tests 02/22/19 12:35 Urine Nitrite Positive H Ur Leukocyte Esterase 3+ H Urine WBC (Auto) 196 Urine RBC (Auto) 3 Urine Bacteria (Auto) 1746.0 02/22/19 13:08 UTI Will give Ceftriaxone 02/22/19 13:21 Laboratory Tests 02/22/19 12:35 Sodium 135 L Potassium 3.7 Chloride 101 Carbon Dioxide 26 BUN 20.7 H Creatinine 0.8 Random Glucose 293 H 02/22/19 15:16 U/S NO hydronephrosis, mild to moderate left cortical scarring, bilateral medullary nephrocalcinosis as seen on previous exams Will admit for pyelonephritis 02/22/19 16:53 Case reviewed with hospitalist Will admit to their service UTI *DC/Admit/Observation/Transfer Diagnosis at time of Disposition: UTI (lower urinary tract infection) - Discharge Dispostion Condition at time of disposition: Stable Decision to Admit order: Yes - Referrals - Patient Instructions - Post Discharge Activity
[2019-02-22 13:32] LABS: PLATELET COUNT 222 K/MM3 (134-434)
[2019-02-22] MEDS ORDERED: CEFTRIAXONE 1 GM in DEXTROSE 5%-WATER - 50 ML IVPB ONE (13:39)
[2019-02-22] MEDS ORDERED: CEFTRIAXONE 1 GM/50 ML BAG ONE (13:39)
[2019-02-22] MEDS ORDERED: SODIUM CHLORIDE 1,000 ML IV SCH ×2 (17:15→18:33)
[2019-02-22] MEDS ORDERED: ACETAMINOPHEN 325 MG TABLET (FP) PO PRN (17:15)
--- NOTE | 2019-02-22 18:04 | PN ---
Teaching Attending Note Name of Resident: Gloria Mcdaniel ATTENDING PHYSICIAN STATEMENT I saw and evaluated the patient. I reviewed the resident's note and discussed the case with the resident. I agree with the resident's findings and plan as documented. SUBJECTIVE: Reports some R sided flank discomfort. Headache resolved. No fever/ chills/nausea/vomiting. No dysuria/hematuiria. OBJECTIVE: Afebrile, Borderline BP. Last Vital Signs Temp Pulse Resp BP Pulse Ox 98.3 F 83 14 90/53 L 100 02/22/19 12:06 02/22/19 12:06 02/22/19 12:06 02/22/19 12:06 02/22/19 12:06 HEENT - Atraumatic, Normocephalic. Heart - S1, S2, RRR Lungs - clear to auscultation Abdomen - R sided CVA tenderness. Mild epigastric tendernese. Soft, Bowel Sounds normal. Extremities - no edema Laboratory Results - last 24 hr 02/22/19 02/22/19 02/22/19 12:35 12:35 12:35 WBC 4.4 RBC 4.25 Hgb 12.1 Hct 34.8 MCV 81.9 MCH 28.5 MCHC 34.8 RDW 12.7 Plt Count 222 MPV 8.2 Absolute Neuts (auto) 2.4 Neutrophils % 55.3 Lymphocytes % 29.2 Monocytes % 11.3 H Eosinophils % 3.6 Basophils % 0.6 Nucleated RBC % 0 Sodium 135 L Potassium 3.7 Chloride 101 Carbon Dioxide 26 Anion Gap 8 BUN 20.7 H Creatinine 0.8 Est GFR (CKD-EPI)AfAm 94.19 Est GFR (CKD-EPI)NonAf 81.27 Random Glucose 293 H Calcium 8.7 Total Bilirubin 0.9 AST 20 ALT 32 Alkaline Phosphatase 122 H Total Protein 6.8 Albumin 3.5 Urine Color Yellow Urine Appearance Cloudy Urine pH 5.5 Ur Specific [place] 1.014 Urine Protein Trace Urine Glucose (UA) 2+ H Urine Ketones Negative Urine Blood Trace Urine Nitrite Positive H Urine Bilirubin Negative Urine Urobilinogen 1.0 Ur Leukocyte Esterase 3+ H Urine WBC (Auto) 196 Urine RBC (Auto) 3 Urine Casts (Auto) 1 U Epithel Cells (Auto) 1.8 Urine Bacteria (Auto) 1746.0 Current Medications Generic Name Dose Route Start Last Admin Trade Name Freq PRN Reason Stop Dose Admin Acetaminophen 650 mg 02/22/19 17:15 Tylenol - PO Q4H PRN PAIN OR FEVER Enoxaparin Sodium 40 mg 02/23/19 10:00 Lovenox - SQ DAILY [facility] Ceftriaxone Sodium 1 gm/ 50 mls @ 100 mls/hr 02/23/19 10:00 Dextrose IVPB DAILY [facility] Protocol Sodium Chloride 1,000 mls @ 83 mls/hr 02/22/19 17:15 02/22/19 18:01 Normal Saline - IV 83 mls/hr ASDIR LUANN Administration Insulin Aspart 1 vial 02/22/19 22:00 Novolog Vial Sliding Scale - SQ ACHS [facility] Protocol ASSESSMENT AND PLAN: 58 year old female with DM 2, Nephrolithiasis, prior admission for UTI/ Pyelonephritis, presents with R flank pain and headache. No fever/chills/dysuria /hematuria/nausea/vomiting. Headache resolved s/p IV hydration. 1. Acute UTI Afebrile, borderline BP (responded to IV fluids) UA positive for Nitrites, LE, WBC Renal US - Multifocal L renal cortical scarring, L renal lower pole cyst ( complex), no hydronephrosis UCx pending Past Urine Cx positive for Ecoli sens to Ceftriaxone Will treat with IV Ceftriaxone pending Urine Cx result. Given propensity and prior history of developing Pyelonephritis and R CVA tenderness on clinical exam, will benefit from a period of in-patient stay for ongoing IV hydration and IV Abx. 2. L Renal Cyst (Complex) - for out-patient Urology referral. 3. DM 2 - Maintain on Novolog sliding scale. Hold Metformin and Glimepiride. DVT Px - Lovenox SQ
--- NOTE | 2019-02-22 18:09 | HP ---
CHIEF COMPLAINT: Back pain PCP: [facility] HISTORY OF PRESENT ILLNESS: 58 y/o F with PMHx of NIDDM, Multiple prior episodes of Cystitis/UTI/ Pyelonephritis with renal stones (s/p 2 surgical procedures for stone removal) presents with Lower back. Patient has had lower back for 3 days accompanied by headache and dark urine. Her pain has continued to worsen and felt similar to prior which prompted her to visit the ED. Patient is accompanied by her daughter who aided in providing HPI. Tolerating PO intake at home and denies any associated vomiting. Denies any fevers, chills, chest pain, SOB, nausea, diarrhea, constipation, urinary frequency, urgency, dysuria, hematuria. Was previously admitted in August for UTI with urine cx growing gaming sensitive E. Coli. ER course was notable for: (1) (2) (3) Recent Travel: Denies PAST MEDICAL HISTORY: As per HPI PAST SURGICAL HISTORY: 2 prior sx for renal calculi removal Social History: Smoking: Denies Alcohol: Denies Drugs: Denies Family History: Allergies diphenhydramine HCl [From Benadryl] Allergy (Verified 02/22/19 12:04) fever HOME MEDICATIONS: Home Medications Medication Instructions Recorded Metformin HCl [Metformin HCl ER] 1,000 mg PO BID 07/23/18 Glipizide 2.5 mg PO BID 30 Days #30 tablet 07/25/18 REVIEW OF SYSTEMS As per HPI PHYSICAL EXAMINATION Vital Signs - 24 hr 02/22/19 12:06 Temperature 98.3 F Pulse Rate 83 Respiratory 14 Rate Blood Pressure 90/53 L O2 Sat by Pulse 100 Oximetry (%) GENERAL: A&Ox3, NAD, lying comfortably HEAD: NCAT EYES: PERRL, EOMI EARS, NOSE, THROAT: Moist mucous membranes NECK: Supple LUNGS: Clear to auscultation bilaterally. No wheezes HEART: Regular rate and rhythm, normal S1 and S2 without murmur ABDOMEN: Soft, nontender, not distended, + bowel sounds, no guarding MUSCULOSKELETAL: +R CVA tenderness EXTREMITIES: No peripheral edema NEUROLOGICAL: Cranial nerves II-XII intact. Normal speech. SKIN: Warm, dry Laboratory Results - last 24 hr 02/22/19 02/22/19 02/22/19 12:35 12:35 12:35 WBC 4.4 RBC 4.25 Hgb 12.1 Hct 34.8 MCV 81.9 MCH 28.5 MCHC 34.8 RDW 12.7 Plt Count 222 MPV 8.2 Absolute Neuts (auto) 2.4 Neutrophils % 55.3 Lymphocytes % 29.2 Monocytes % 11.3 H Eosinophils % 3.6 Basophils % 0.6 Nucleated RBC % 0 Sodium 135 L Potassium 3.7 Chloride 101 Carbon Dioxide 26 Anion Gap 8 BUN 20.7 H Creatinine 0.8 Est GFR (CKD-EPI)AfAm 94.19 Est GFR (CKD-EPI)NonAf 81.27 Random Glucose 293 H Calcium 8.7 Total Bilirubin 0.9 AST 20 ALT 32 Alkaline Phosphatase 122 H Total Protein 6.8 Albumin 3.5 Urine Color Yellow Urine Appearance Cloudy Urine pH 5.5 Ur Specific [place] 1.014 Urine Protein Trace Urine Glucose (UA) 2+ H Urine Ketones Negative Urine Blood Trace Urine Nitrite Positive H Urine Bilirubin Negative Urine Urobilinogen 1.0 Ur Leukocyte Esterase 3+ H Urine WBC (Auto) 196 Urine RBC (Auto) 3 Urine Casts (Auto) 1 U Epithel Cells (Auto) 1.8 Urine Bacteria (Auto) 1746.0 IMAGING: Kidney/Renal US: No hydronephrosis is identified. Bilateral medullary nephrocalcinosis is seen as on previous exams. Note is again made of mild to moderate left renal cortical scarring. A 1.3 cm left renal lower pole complex cortical cyst is noted. Correlation with 3-4 month follow up sonography is suggested in this regard to document stability. ASSESSMENT/PLAN: 58 y/o F with PMHx of NIDDM, Multiple prior episodes of Cystitis/UTI/ Pyelonephritis with renal stones (s/p 2 surgical procedures for stone removal) presents with Lower back, found to have UTI. #UTI -UA: Positive Nitrite, 3+ LE, 1746 Bacteria -Positive [place] punch on exam, AFebrile, VSS, Without Leukocytosis -Prior Urine Cx grew gaming sensitive E.Coli; Urine Cx pending -Ceftriaxone 1gm daily (Started on 02/22) -NS @ 83 mls/hr #NIDDM -Hold oral hypoglycemics -ISS BGMs ACHS #FEN -Given 1L NS Bolus in ED; Continue NS @ 83 mls/hr -Lytes WNL -Diabetic Diet #PPx -DVT: Lovenox Dispo: Admit to med-surg Visit type - Emergency Visit Emergency Visit: Yes ED Registration Date: 02/22/19 Care time: The patient presented to the Emergency Department on the above date and was hospitalized for further evaluation of their emergent condition. - New Patient This patient is new to me today: Yes Date on this admission: 02/22/19 - Critical Care Critical Care patient: No
[2019-02-22] MEDS: INSULIN SLIDING SCALE (NOVOLOG) 1 VIAL SQ SCH (21:29)
[2019-02-23] MEDS: INSULIN SLIDING SCALE (NOVOLOG) 1 VIAL SQ SCH ×2 (06:49→12:47)
[2019-02-23 07:20] LABS: BASO % 0.7 % (0-2.0); EOS % 5.1 % (0-4.5); LYMPH % 35.5 % (8-40); MCH 28.9 pg (25.7-33.7); MCHC 35.2 g/dl (32.0-36.0); MEAN PLT VOLUME 8.1 fl (7.5-11.1); MONO % 11.5 % (3.8-10.2); NEUT % 47.2 % (42.8-82.8); PLATELET COUNT 214 K/MM3 (134-434); RBC 4.14 M/mm3 (3.60-5.2); RDW 12.6 % (11.6-15.6)
[2019-02-23 08:05] LABS: BILIRUBIN,TOTAL 0.6 mg/dL (0.2-1); BLOOD UREA NITROGEN 10.1 mg/dL (7-18); CREATININE 0.5 mg/dL (0.55-1.3); MAGNESIUM 1.9 mg/dL (1.8-2.4); POTASSIUM 3.6 mmol/L (3.5-5.1); TOT PROT 6.1 g/dl (6.4-8.2)
[2019-02-23] MEDS ORDERED: cefTRIAXone SODIUM 1 GM VIAL ONE (09:32)
[2019-02-23] MEDS ORDERED: DEXTROSE 5%-WATER - 50 ML IVPB ONE (09:32)
[2019-02-23 09:57] LABS: CALCIUM 8.3 mg/dL (8.5-10.1); PHOSPHOROUS 3.2 mg/dL (2.5-4.9)
[2019-02-23] MEDS ORDERED: CEFTRIAXONE 1 GM in DEXTROSE 5%-WATER - 50 ML IVPB SCH (10:00)
[2019-02-23] MEDS ORDERED: ENOXAPARIN NA (PORCINE) 40 MG/0.4 ML DISP.SYRIN SQ SCH (10:00)
[2019-02-23 14:03] VITALS: BP 108/60; PULSE 75; TEMP 98.5
--- NOTE | 2019-02-23 16:04 | DS ---
Physical Exam: SUBJECTIVE: Patient seen and examined at bedside. Pt stated she is improving. Pt still has R flank pain which is improving OBJECTIVE: Vital Signs Period Temp Pulse Resp BP Sys/[place] Pulse Ox Last 24 Hr 98 F-98.7 F 70-75 18-18 91-115/51-70 96-98 PHYSICAL EXAM GENERAL: The patient is awake, alert, and fully oriented, in no acute distress. LUNGS: Breath sounds equal, clear to auscultation bilaterally, no wheezes, no crackles, no accessory muscle use. HEART: Regular rate and rhythm, S1, S2 without murmur, rub or gallop. ABDOMEN: Soft, tender RUQ, nondistended, normoactive bowel sounds EXTREMITIES: 2+ pulses, warm, well-perfused, no edema. NEUROLOGICAL: Cranial nerves II through XII grossly intact. Normal speech, gait not observed. PSYCH: Normal mood, normal affect. SKIN: Warm, dry, normal turgor, no rashes or lesions noted. Laboratory Last Values WBC 4.0 K/mm3 (4.0-10.0) 02/23/19 05:47 RBC 4.14 M/mm3 (3.60-5.2) 02/23/19 05:47 Hgb 12.0 GM/dL (10.7-15.3) 02/23/19 05:47 Hct 34.0 % (32.4-45.2) 02/23/19 05:47 MCV 82.0 fl (80-96) 02/23/19 05:47 MCH 28.9 pg (25.7-33.7) 02/23/19 05:47 MCHC 35.2 g/dl (32.0-36.0) 02/23/19 05:47 RDW 12.6 % (11.6-15.6) 02/23/19 05:47 Plt Count 214 K/MM3 (134-434) 02/23/19 05:47 MPV 8.1 fl (7.5-11.1) 02/23/19 05:47 Absolute Neuts (auto) 1.9 K/mm3 (1.5-8.0) 02/23/19 05:47 Neutrophils % 47.2 % (42.8-82.8) 02/23/19 05:47 Lymphocytes % 35.5 % (8-40) D 02/23/19 05:47 Monocytes % 11.5 % (3.8-10.2) H 02/23/19 05:47 Eosinophils % 5.1 % (0-4.5) H 02/23/19 05:47 Basophils % 0.7 % (0-2.0) 02/23/19 05:47 Nucleated RBC % 0 % (0-0) 02/23/19 05:47 Sodium 140 mmol/L (136-145) 02/23/19 05:47 Potassium 3.6 mmol/L (3.5-5.1) 02/23/19 05:47 Chloride 107 mmol/L (98-107) 02/23/19 05:47 Carbon Dioxide 28 mmol/L (21-32) 02/23/19 05:47 Anion Gap 6 MMOL/L (8-16) L 02/23/19 05:47 BUN 10.1 mg/dL (7-18) 02/23/19 05:47 Creatinine 0.5 mg/dL (0.55-1.3) L 02/23/19 05:47 Est GFR (CKD-EPI)AfAm 123.65 02/23/19 05:47 Est GFR (CKD-EPI)NonAf 106.68 02/23/19 05:47 POC Glucometer 194 UNITS (80-120) 02/23/19 12:36 Random Glucose 127 mg/dL (74-106) H 02/23/19 05:47 Calcium 8.3 mg/dL (8.5-10.1) L 02/23/19 05:47 Phosphorus 3.2 mg/dL (2.5-4.9) 02/23/19 05:47 Magnesium 1.9 mg/dL (1.8-2.4) 02/23/19 05:47 Total Bilirubin 0.6 mg/dL (0.2-1) 02/23/19 05:47 AST 24 U/L (15-37) 02/23/19 05:47 ALT 35 U/L (13-61) 02/23/19 05:47 Alkaline Phosphatase 112 U/L (45-117) 02/23/19 05:47 Total Protein 6.1 g/dl (6.4-8.2) L 02/23/19 05:47 Albumin 3.0 g/dl (3.4-5.0) L 02/23/19 05:47 Urine Color Yellow 02/22/19 12:35 Urine Appearance Cloudy 02/22/19 12:35 Urine pH 5.5 (5.0-8.0) 02/22/19 12:35 Ur Specific [place] 1.014 (1.010-1.035) 02/22/19 12:35 Urine Protein Trace (NEGATIVE) 02/22/19 12:35 Urine Glucose (UA) 2+ (NEGATIVE) H 02/22/19 12:35 Urine Ketones Negative (NEGATIVE) 02/22/19 12:35 Urine Blood Trace (NEGATIVE) 02/22/19 12:35 Urine Nitrite Positive (NEGATIVE) H 02/22/19 12:35 Urine Bilirubin Negative (NEGATIVE) 02/22/19 12:35 Urine Urobilinogen 1.0 mg/dL (0.2-1.0) 02/22/19 12:35 Ur Leukocyte Esterase 3+ (NEGATIVE) H 02/22/19 12:35 Urine WBC (Auto) 196 /hpf (0-5) 02/22/19 12:35 Urine RBC (Auto) 3 /hpf (0-4) 02/22/19 12:35 Urine Casts (Auto) 1 /lpf (0-8) 02/22/19 12:35 U Epithel Cells (Auto) 1.8 /HPF (0-5/HPF) 02/22/19 12:35 Urine Bacteria (Auto) 1746.0 /hpf (NEGATIVE) 02/22/19 12:35 RENAL U/S No hydronephrosis is identified. Bilateral medullary nephrocalcinosis is seen as on previous exams. Note is again made of mild to moderate left renal cortical scarring. A 1.3 cm left renal lower pole complex cortical cyst is noted. Correlation with 3-4 month follow up sonography is suggested in this regard to document stability. HOSPITAL COURSE: Date of Admission:02/22/19 58 year old female with DM 2, Nephrolithiasis, prior admission for UTI/ Pyelonephritis, presents with R flank pain and headache. while admitted pt had renal u/s ( see above).UA positive for Nitrites, LE, WBC which indicates UTI/ pyelo. Since the patient was recently admitted with UTI/ Pyelonephritis and was found to be sensitive to ceftriaxone, the pt was treated with IV ceftriaxone. The preliminary urine culture shows lactose fermenting bacilli. The patient was discharged on keflex 500 BID for 8 days ( to complete 10 days ). The headache resolved with IVF. It is recommended that the pt follow up outpatient with urology for L renal cyst seen on u/s. The pt is recommended to continue home diabetes medications ( metformin and glimepiride) and to follow up with her PCP outpt. The pt will be contacted to modify the antibiotic regimen once the urine culture and sensitivity is released. Pt daughter=Reba :[phone] Date of Discharge: 02/23/19 Minutes to complete discharge: 36 Discharge Summary Reason For Visit: LOWER URINARY TRACT INFECTION DISEASE Current Active Problems UTI (lower urinary tract infection) (Acute) Condition: Stable - Instructions Diet, Activity, Other Instructions: You presented to the hospital with pain in your abdomen and back because of an infection in your urine. You were treated with antibiotics. Medications: 1. Begin taking Keflex 500 mg twice a day for 8 days. Follow up with the following physicians: 1. Primary physician in one week, please call to schedule follow up to further manage your infection. Your kidney ultrasound revealed a cyst in the Left lower pole. Please repeat the Ultrasound in 3 months and follow up with your PCP. You are being discharged back home. Continue your medications as prescribed. Continue following a low sugar diet. Please return to the ER if you have any signs or symptoms of chest pain, shortness of breath, uncontrollable fever, chills, nausea, vomiting, numbness, tingling, or weakness in any part of your body, changes in vision, or slurred speech. Please return to the ER if symptoms persist, worsen, or new symptoms arise. Disposition: HOME - Home Medications Comprehensive Discharge Medication List: Ambulatory Orders Metformin HCl [Metformin HCl ER] 1,000 mg PO BID 07/23/18 Glipizide 2.5 mg PO BID 30 Days #30 tablet 07/25/18 Cephalexin [Keflex] 500 mg PO BID 8 Days #16 capsule 02/23/19 This patient is new to me today: No Emergency Visit: No Critical Care patient: No - Discharge Referral Referred to [facility] No
--- NOTE | 2019-02-23 17:16 | PN ---
Teaching Attending Note Name of Resident: Malathi Loza ATTENDING PHYSICIAN STATEMENT I saw and evaluated the patient. I reviewed the resident's note and discussed the case with the resident. I agree with the resident's findings and plan as documented. SUBJECTIVE: Resolution of flank/abdominal discomfort. Headache resolved. No fever/chills/nausea/vomiting. No dysuria/hematuiria. OBJECTIVE: Afebrile, Hemodynamically Stable. Last Vital Signs Temp Pulse Resp BP Pulse Ox 98.5 F 75 18 108/60 98 02/23/19 14:01 02/23/19 14:01 02/23/19 14:01 02/23/19 14:01 02/23/19 09:00 Heart - S1, S2, RRR Lungs - clear to auscultation Abdomen - Mild R sided CVA tenderness. Mild epigastric tenderness. Soft, Bowel Sounds normal. Extremities - no edema Laboratory Results - last 24 hr 02/22/19 02/22/19 02/23/19 18:51 21:26 05:47 WBC 4.0 RBC 4.14 Hgb 12.0 Hct 34.0 MCV 82.0 MCH 28.9 MCHC 35.2 RDW 12.6 Plt Count 214 MPV 8.1 Absolute Neuts (auto) 1.9 Neutrophils % 47.2 Lymphocytes % 35.5 D Monocytes % 11.5 H Eosinophils % 5.1 H Basophils % 0.7 Nucleated RBC % 0 Sodium Potassium Chloride Carbon Dioxide Anion Gap BUN Creatinine Est GFR (CKD-EPI)AfAm Est GFR (CKD-EPI)NonAf POC Glucometer 71 193 Random Glucose Calcium Phosphorus Magnesium Total Bilirubin AST ALT Alkaline Phosphatase Total Protein Albumin 02/23/19 02/23/19 02/23/19 05:47 06:48 12:36 WBC RBC Hgb Hct MCV MCH MCHC RDW Plt Count MPV Absolute Neuts (auto) Neutrophils % Lymphocytes % Monocytes % Eosinophils % Basophils % Nucleated RBC % Sodium 140 Potassium 3.6 Chloride 107 Carbon Dioxide 28 Anion Gap 6 L BUN 10.1 Creatinine 0.5 L Est GFR (CKD-EPI)AfAm 123.65 Est GFR (CKD-EPI)NonAf 106.68 POC Glucometer 150 194 Random Glucose 127 H Calcium 8.3 L Phosphorus 3.2 Magnesium 1.9 Total Bilirubin 0.6 AST 24 ALT 35 Alkaline Phosphatase 112 Total Protein 6.1 L Albumin 3.0 L Current Medications Generic Name Dose Route Start Last Admin Trade Name Eusebioq PRN Reason Stop Dose Admin Acetaminophen 650 mg 02/22/19 17:15 02/22/19 21:30 Tylenol - PO 650 mg Q4H PRN Administration PAIN OR FEVER Enoxaparin Sodium 40 mg 02/23/19 10:00 02/23/19 09:47 Lovenox - SQ 40 mg DAILY LUANN Administration Ceftriaxone Sodium 1 gm/ 50 mls @ 100 mls/hr 02/23/19 10:00 02/23/19 09:47 Dextrose IVPB 100 mls/hr DAILY [facility] Administration Protocol Sodium Chloride 1,000 mls @ 100 mls/hr 02/22/19 18:33 02/22/19 18:59 Normal Saline - IV 100 mls/hr ASDIR LUANN Administration Insulin Aspart 1 vial 02/22/19 22:00 02/23/19 12:47 Novolog Vial Sliding Scale - SQ 2 units ACHS LUANN Administration Protocol Home Medications Medication Instructions Recorded Metformin HCl [Metformin HCl ER] 1,000 mg PO BID 07/23/18 Glipizide 2.5 mg PO BID 30 Days #30 tablet 07/25/18 Cephalexin Monohydrate [Keflex -] 500 mg PO BID #16 capsule 02/23/19 ASSESSMENT AND PLAN: 58 year old female with DM 2, Nephrolithiasis, prior admission for UTI/ Pyelonephritis, presents with R flank pain and headache. No fever/chills/dysuria /hematuria/nausea/vomiting. Headache resolved s/p IV hydration. 1. Acute UTI Afebrile, Hemodynamically Stable UA positive for Nitrites, LE, WBC Renal US - Multifocal L renal cortical scarring, L renal lower pole cyst ( complex), no hydronephrosis UCx - LFNB Past Urine Cx positive for Ecoli sens to Ceftriaxone Treated with IV Ceftriaxone - transitioned to Keflex pending Urine Cx final ID and Sens Given propensity and prior history of UTI, will treat for 10 days total - will modify regimen pending final ID and Sens. 2. L Renal Cyst (Complex) - for out-patient Urology referral. 3. DM 2 - Resume home Metformin and Glimepiride. Medically optimized for discharge. Will contact patient to modify Abx regimen once Urine Cx final ID and Sens is released.
== END 2019-02-23 18:23 | disposition home or self-care (01) | DRG 463 ==
LOC: JER 11:57 → JERBED 17:14 → J8W 19:17
DX: N39.0 Urinary tract infection, site not specified (principal); E11.9 Type 2 diabetes mellitus without complications; R51 Headache; M54.5 Low back pain; N28.1 Cyst of kidney, acquired
CPT/HCPCS: 36415; 76775-TC; 80053; 81003; 82962; 83735; 84100; 85025; 87086; 87186; 97116-GP; 97161-GP; 99284-25; J0131; J7030

== ENCOUNTER 2019-08-02 04:55 | Emergency (ER) | payer OTHER ==
[2019-08-02 05:46] VITALS: BMI 21.4
[2019-08-02] MEDS ORDERED: SODIUM CHLORIDE 1,000 ML IV STA ×2 (05:52→07:47)
[2019-08-02] MEDS ORDERED: ONDANSETRON 4 MG/2 ML VIAL IVPUSH ONE (05:52)
[2019-08-02] MEDS ORDERED: ONDANSETRON 4 MG/2 ML VIAL ONE (06:16)
[2019-08-02 06:17] LABS: BASO % 0.5 % (0-2.0); HEMATOCRIT 36.8 % (32.4-45.2); HEMOGLOBIN 12.8 GM/dL (10.7-15.3); LYMPH % 13.9 % (8-40); MCH 28.9 pg (25.7-33.7); MCHC 34.9 g/dl (32.0-36.0); MEAN CELL VOLUME 82.7 fl (80-96); MEAN PLT VOLUME 7.5 fl (7.5-11.1); MONO % 6.1 % (3.8-10.2); NEUT % 78.5 % (42.8-82.8); PLATELET COUNT 221 K/MM3 (134-434); RBC 4.45 M/mm3 (3.60-5.2); RDW 12.7 % (11.6-15.6); WHITE BLOOD COUNT 3.6 K/mm3 (4.0-10.0)
[2019-08-02 06:54] LABS: EPI CELLS 3.9 /HPF (0-5/HPF); HYALINE CASTS 3 /lpf (0-8); URINE APPEARANCE TURBID; URINE BACTERIA 7674.7 /hpf (NEGATIVE); URINE BILIRUBIN NEGATIVE (NEGATIVE); URINE COLOR YELLOW; URINE GLUCOSE (UA) 3+ (NEGATIVE); URINE KETONE NEGATIVE (NEGATIVE); URINE LEUK ESTERASE 2+ (NEGATIVE); URINE NITRITE POSITIVE (NEGATIVE); URINE PROTEIN NEGATIVE (NEGATIVE); URINE RBC 8 /hpf (0-4); URINE WBC 418 /hpf (0-5)
[2019-08-02 06:55] LABS: ALBUMIN 3.3 g/dl (3.4-5.0); ALK PHOS 108 U/L (45-117); ANION GAP 8 MMOL/L (8-16); BILIRUBIN,TOTAL 0.7 mg/dL (0.2-1); BLOOD UREA NITROGEN 18.1 mg/dL (7-18); CHLORIDE 100 mmol/L (98-107); CO2 27 mmol/L (21-32); CREATININE 0.7 mg/dL (0.55-1.3); POTASSIUM 3.7 mmol/L (3.5-5.1); SGOT/AST 33 U/L (15-37); SGPT/ALT 46 U/L (13-61); SODIUM 135 mmol/L (136-145); TOT PROT 6.8 g/dl (6.4-8.2)
[2019-08-02 07:02] LABS: GLUCOSE,RANDOM 414 mg/dL (74-106)
--- NOTE | 2019-08-02 07:19 | PDOC ---
Attending Attestation - Resident Resident Name: Milagros Cornell - HPI HPI: 08/02/19 10:16 Pt presents to the ED complaining of a one day history of R sided flank pain, nausea, vomiting and fever. History of renal stones requiring stenting and DM. Denies dysuria. 08/02/19 10:17 - Physicial Exam PE: 08/02/19 10:18 Agree with resident exam. Patient is alert and oriented and in no acute distress. Abdomen is soft, and non distended, but with mild diffuse tenderness. + R CVA tenderness. - Medical Decision Making 08/02/19 10:25 Pt presents to the ED complaining of flank pain, nausea and vomiting x 1 day. Labs show UTI. Given patients history and CVA tenderness, will get CT to rule out stone. Will consider admission to medicine for IV antibiotics.
--- NOTE | 2019-08-02 07:45 | PDOC ---
History of Present Illness - General Chief Complaint: Pain, Acute Stated Complaint: ABD PAIN Time Seen by Provider: 08/02/19 07:15 - History of Present Illness Initial Comments: 08/02/19 07:45 HPI: 58 y/o F with hx of DM2, nephrolithiasis s/p lithotripsy/stenting, UTI/pyelo presenting with abdominal pain that started yesterday around 11am. Pain was gradual in onset and was initially 5/10 and now is 10/10. Pain started in epigastric region and is now generalized. Described as crampy pain. No flank pain. She reports minor improvement with tylenol. Pain is worse with motion. She also reports nausea and 2 episodes of yellowish emesis. She isnt able to tolerate PO solids and feels worse pain with fluids. She also reports T 101 last night and JOHNSON, LH. Denies chills, chest pain, SOB, dysuria, hematuria, diarrhea, constipation. PMHx: as noted above ROS: as noted SHx: Denies tobacco use; occasional alcohol use; no rec drugs Allergies: benadryl ROS: GENERAL/CONSTITUTIONAL: +fever. No weakness. HEAD, EYES, EARS, NOSE AND THROAT: No change in vision. No ear pain or discharge. No sore throat. CARDIOVASCULAR: No chest pain or shortness of breath RESPIRATORY: No cough, wheezing, or hemoptysis. GASTROINTESTINAL: +nausea, vomiting; diarrhea or constipation. GENITOURINARY: No dysuria, frequency, or change in urination. MUSCULOSKELETAL: No joint or muscle swelling or pain. No neck or back pain. SKIN: No rash NEUROLOGIC: +headache; no vertigo, loss of consciousness, or change in strength/ sensation. ENDOCRINE: No increased thirst. No abnormal weight change HEMATOLOGIC/LYMPHATIC: No anemia, easy bleeding, or history of blood clots. ALLERGIC/IMMUNOLOGIC: No hives or skin allergy. PE: GENERAL: Awake, alert, and fully oriented, mild acute distress HEAD: No signs of trauma, normocephalic, atraumatic EYES: EOMI, sclera anicteric, conjunctiva clear ENT: Auricles normal inspection, hearing grossly normal, nares patent, oropharynx clear without exudates. Moist mucosa NECK: Normal ROM, no lymphadenopathy LUNGS: No increased work of breathing, symmetrical chest rise, clear to auscultation bilaterally, no wheezes, crackles or rhonchi HEART: Regular rate and rhythm, normal S1 and S2, no murmurs, peripheral pulses 2+ and equal bilaterally. ABDOMEN: Soft, nondistended, generalized abd ttp with +Fenton and mild guarding , right CVAT, normoactive bowel sounds. EXTREMITIES: Normal inspection, Normal range of motion, no edema. No clubbing or cyanosis. NEUROLOGICAL: Cranial nerves II through XII grossly intact. Normal speech, normal gait, no focal sensorimotor deficits SKIN: Warm, Dry, normal turgor, no rashes or lesions noted Past History - Past Medical History Allergies/Adverse Reactions: Allergies Allergy/AdvReac Type Severity Reaction Status Date / Time diphenhydramine HCl Allergy fever Verified 08/02/19 05:42 [From Benadryl] Home Medications: Ambulatory Orders metFORMIN HCL [Metformin HCl ER] 1,000 mg PO BID 07/23/18 Glipizide 2.5 mg PO BID 30 Days #30 tablet 07/25/18 Levofloxacin [Levaquin] 750 mg PO DAILY #10 tablet 08/02/19 COPD: No Diabetes: Yes Disorders: Yes (Renal stones, pyelonephritis) Kidney Stones: Yes - Reproductive History Is Patient Now?: No Therapeutic (s) & number: No - Immunization History Immunization Up to Date: Yes - Psycho Social/Smoking Cessation Hx Smoking Status: No Smoking History: Never smoked Have you smoked in the past 12 months: No Number of Cigarettes Smoked Daily: 0 Information on smoking cessation initiated: No Hx Alcohol Use: No Drug/Substance Use Hx: No Substance Use Type: None Hx Substance Use Treatment: No *Physical Exam - Vital Signs Last Vital Signs Temp Pulse Resp BP Pulse Ox 98.6 F 97 H 18 93/53 L 97 08/02/19 05:05 08/02/19 05:05 08/02/19 05:05 08/02/19 05:05 08/02/19 05:05 ED Treatment Course - LABORATORY CBC & Chemistry Diagram: 08/02/19 06:11 08/02/19 06:11 - ADDITIONAL ORDERS Additional order review: Laboratory Results 08/02/19 08/02/19 08/02/19 06:39 06:39 06:11 Sodium 135 L Potassium 3.7 Chloride 100 Carbon Dioxide 27 Anion Gap 8 BUN 18.1 H Creatinine 0.7 Est GFR (CKD-EPI)AfAm 110.69 Est GFR (CKD-EPI)NonAf 95.50 Random Glucose 414 H* Calcium 8.0 L Total Bilirubin 0.7 AST 33 ALT 46 Alkaline Phosphatase 108 Troponin I < 0.02 Total Protein 6.8 Albumin 3.3 L Urine Color Yellow Urine Appearance Turbid Urine pH 6.0 Ur Specific [place] 1.034 Urine Protein Negative Urine Glucose (UA) 3+ H Urine Ketones Negative Urine Blood Trace Urine Nitrite Positive H Urine Bilirubin Negative Urine Urobilinogen 1.0 Ur Leukocyte Esterase 2+ H Urine WBC (Auto) 418 Urine RBC (Auto) 8 Urine Casts (Auto) 3 U Epithel Cells (Auto) 3.9 Urine Bacteria (Auto) 7674.7 Urine HCG, Qual Negative 08/02/19 06:11 RBC 4.45 MCV 82.7 MCHC 34.9 RDW 12.7 MPV 7.5 Neutrophils % 78.5 D Lymphocytes % 13.9 D Monocytes % 6.1 Eosinophils % 1.0 D Basophils % 0.5 - Medications Given in the ED: ED Medications Discontinued Medications Generic Name Dose Route Start Last Admin Trade Name Freq PRN Reason Stop Dose Admin Sodium Chloride 1,000 mls @ 1,000 mls/hr 08/02/19 05:52 08/02/19 06:15 Normal Saline - IV 08/02/19 06:51 1,000 mls/hr ASDIR STA Administration Ondansetron HCl 4 mg 08/02/19 05:52 08/02/19 06:17 Zofran Injection IVPUSH 08/02/19 05:53 4 mg ONCE ONE Administration Medical Decision Making - Medical Decision Making 08/02/19 08:14 58 y/o F with hx of DM2, nephrolithiasis s/p lithotripsy/stenting, UTI/pyelo presenting with generalized abdominal pain associated with nausea and emesis. VSS, AF. PE with right CVAT and generalized abd ttp. DDX includes gastroparesis , gastroenteritis, gallbladder pathology, appy, uti, pyelo. will ruleout atypical ACS -cbc, cmp, lipase, ua, ucx, ekg, cxr -zofran, ivf, ofirmev 08/02/19 08:15 UA with + nitrites, 2+ leuk est, significant wbc and bacteria will administer 1g ceftriaxone 08/02/19 12:37 CT with BL nephrocalcinosis, no hydro or obstructive pathology patient passed PO challenge and tolerating solids and liquids discussed with patient results and findings and she would like to PO abx at home ; discussed at length return pcxns and she understands and is agreeable Discharge - Discharge Information Problems reviewed: Yes Clinical Impression/Diagnosis: Pyelonephritis Condition: Improved Disposition: HOME - Additional Discharge Information Prescriptions: Levofloxacin [Levaquin] 750 mg PO DAILY #10 tablet - Follow up/Referral - Patient Discharge Instructions Patient Printed Discharge Instructions: DI for Kidney Infection, DI for Urinary Tract Infection (UTI) Additional Instructions: Additional Instructions: Please return to the emergency department with any new or worsening symptoms or concerns including vomiting, worsening pain, fever, fainting, not able to tolerate food. Please follow up with your primary care physician on Tuesday. Please see your urologist as soon as possible Please take your antibiotics levaquin 750mg every day for 10 days. Please take tylenol 500mg every 6 hours for pain control Instrucciones adicionales: Regrese al departamento de emergencias con cualquier sntoma o inquietud nueva o que empeore, incluyendo vmitos, empeoramiento del dolor, fiebre, desmayos, incapaz de tolerar los alimentos. Jaylyn un seguimiento con hurt mdico de atencin primaria el . Consulte a hurt urlogo lo antes posible. [place] estelle antibiticos levaquin 750mg todos los douglass valdemar 10 douglass. [place] 500 mg de tylenol cada 6 horas para controlar el dolor. Print Language: MOHAWK - Post Discharge Activity
[2019-08-02] MEDS ORDERED: ACETAMINOPHEN 1000 MG/100 ML VIAL (NON FORMULARY) IVPB ONE (07:47)
[2019-08-02] MEDS ORDERED: ACETAMINOPHEN INJECTION 100 ML IVPB ONE (07:51)
[2019-08-02] MEDS ORDERED: CEFTRIAXONE 1 GM in DEXTROSE 5%-WATER - 100 ML IVPB ONE (08:07)
[2019-08-02 08:29] LABS: LIPASE 109 U/L (73-393)
[2019-08-02] MEDS ORDERED: CEFTRIAXONE 1 GM/50 ML BAG ONE (09:05)
[2019-08-02 11:32] VITALS: TEMP 98
[2019-08-02 13:07] VITALS: BP 93/55; PULSE 82
== END 2019-08-02 13:07 | disposition home or self-care (01) ==
LOC: JER 04:55
PROC: 3E033NZ Introduction of Analgesics, Hypnotics, Sedatives into Peripheral Vein, Percutaneous Approach (ICD-10-PCS; principal; 2019-08-02)
PROC: 3E03329 Introduction of Other Anti-infective into Peripheral Vein, Percutaneous Approach (ICD-10-PCS; 2019-08-02)
PROC: 3E033GC Introduction of Other Therapeutic Substance into Peripheral Vein, Percutaneous Approach (ICD-10-PCS; 2019-08-02)
DX: N12 Tubulo-interstitial nephritis, not specified as acute or chronic (principal); Z88.8 Allergy status to other drugs, medicaments and biological substances
CPT/HCPCS: 36415; 74176-TC; 80053; 81003; 83605; 83690; 84484; 84703; 85025; 87086; 87186; 99283-25; J0131; J7030

== ENCOUNTER 2023-10-05 06:18 | Emergency (ER) | payer OTHER ==
[2023-10-05 06:27] VITALS: BP 132/77; PULSE 92; RESP 18; TEMP 98.1; BMI 21.4
[2023-10-05] MEDS: RABIES VACCINE (PCEC)/PF 2.5 UNIT/VIAL IM ONE (09:18)
== END 2023-10-05 09:51 | disposition home or self-care (01) ==
LOC: JER 06:18
PROC: 3E0234Z Introduction of Serum, Toxoid and Vaccine into Muscle, Percutaneous Approach (ICD-10-PCS; principal; 2023-10-05)
DX: S91.352A Open bite, left foot, initial encounter (principal); Z20.3 Contact with and (suspected) exposure to rabies; W53.01XA Bitten by mouse, initial encounter
CPT/HCPCS: 90675; 99283-25

== ENCOUNTER 2023-10-08 09:20 | Emergency (ER) | payer OTHER ==
[2023-10-08 09:39] VITALS: BP 112/63; PULSE 89; RESP 16; TEMP 97.9; BMI 21.4
[2023-10-08] MEDS ORDERED: RABIES VACCINE (PCEC)/PF 2.5 UNIT/VIAL IM ONE (10:07)
[2023-10-08] MEDS: RABIES VACCINE (PCEC)/PF 2.5 UNIT/VIAL IM ONE (10:29)
== END 2023-10-08 11:03 | disposition home or self-care (01) ==
LOC: JERFT 09:20
PROC: 3E0234Z Introduction of Serum, Toxoid and Vaccine into Muscle, Percutaneous Approach (ICD-10-PCS; principal; 2023-10-08)
DX: Z29.14 Encounter for prophylactic rabies immune globulin (principal)
CPT/HCPCS: 90675; 99281-25

== ENCOUNTER 2023-11-19 12:40 | Emergency (ER) | payer OTHER ==
[2023-11-19 12:49] VITALS: BMI 21.4
[2023-11-19] MEDS ORDERED: ACETAMINOPHEN INJECTION 100 ML IVPB ONE (14:38)
[2023-11-19] MEDS ORDERED: DIPHTH,PERTUSS(ACELL),TET 0.5 ML DISP.SYRIN IM ONE (14:38)
[2023-11-19] MEDS: DIPHTH,PERTUSS(ACELL),TET 0.5 ML DISP.SYRIN IM ONE (14:55)
[2023-11-19] MEDS: ACETAMINOPHEN 1000 MG/100 ML BAG IVPB ONE (14:56)
[2023-11-19 15:05] LABS: BASO % 0.7 % (0-2.0); EOS % 2.8 % (0-4.5); HEMATOCRIT 35.6 % (32.4-45.2); HEMOGLOBIN 12.8 GM/dL (10.7-15.3); LYMPH % 26.6 % (8-40); MCH 29.8 pg (25.7-33.7); MCHC 35.8 g/dl (32.0-36.0); MEAN CELL VOLUME 83.3 fl (80-96); MEAN PLT VOLUME 7.3 fl (7.5-11.1); MONO % 7.4 % (3.8-10.2); NEUT % 62.5 % (42.8-82.8); PLATELET COUNT 298 10^3/uL (134-434); RBC 4.27 M/mm3 (3.60-5.2); RDW 12.6 % (11.6-15.6); WHITE BLOOD COUNT 5.6 K/mm3 (4.0-10.0)
[2023-11-19 15:20] LABS: POTASSIUM 4.3 mmol/L (3.5-5.1)
[2023-11-19 15:23] LABS: ALBUMIN 2.8 g/dl (3.4-5.0); BLOOD UREA NITROGEN 18.7 mg/dL (7-18); CALCIUM 8.9 mg/dL (8.5-10.1)
[2023-11-19 15:26] LABS: CREATININE 0.7 mg/dL (0.55-1.3)
[2023-11-19 15:27] LABS: BILIRUBIN,TOTAL 0.4 mg/dL (0.2-1)
[2023-11-19 15:28] LABS: TOT PROT 6.5 g/dl (6.4-8.2)
[2023-11-19 15:40] LABS: ERYTHROCYTE SEDIMENTATION RATE 66 mm/hr (0-30)
[2023-11-19] MEDS: CIPROFLOXACIN 500 MG TABLET (RESTRICTED TO ID) PO ONE (16:37)
[2023-11-19] MEDS: DALBAVANCIN HCL 1,500 MG in DEXTROSE 5%-WATER - 500 ML IVPB ONE (16:37)
[2023-11-19 17:53] VITALS: BP 109/66; PULSE 83; RESP 20; TEMP 98.7
== END 2023-11-19 17:45 | disposition home or self-care (01) ==
LOC: JER 12:40
PROC: 3E033GC Introduction of Other Therapeutic Substance into Peripheral Vein, Percutaneous Approach (ICD-10-PCS; principal; 2023-11-19)
PROC: 3E033GC Introduction of Other Therapeutic Substance into Peripheral Vein, Percutaneous Approach (ICD-10-PCS; 2023-11-19)
PROC: 3E0234Z Introduction of Serum, Toxoid and Vaccine into Muscle, Percutaneous Approach (ICD-10-PCS; 2023-11-19)
DX: S81.801A Unspecified open wound, right lower leg, initial encounter (principal); S81.802A Unspecified open wound, left lower leg, initial encounter; W01.198A Fall on same level from slipping, tripping and stumbling with subsequent striking against other object, initial encounter
CPT/HCPCS: 36415; 73590-TC-LT-FY; 73590-TC-RT-FY; 80053; 83605; 85025; 85651; 87070; 87077; 87205; 90471; 90715; 96365; 96375; 99284-25; J0131; J0875

== ENCOUNTER 2024-05-20 09:34 | Inpatient (IN) | payer OTHER ==
[2024-05-20 10:30] LABS: BASO % 0.8 % (0-2.0); EOS % 2.9 % (0-4.5); HEMATOCRIT 31.3 % (32.4-45.2); HEMOGLOBIN 10.9 GM/dL (10.7-15.3); LYMPH % 24.8 % (8-40); MCH 29.2 pg (25.7-33.7); MCHC 34.9 g/dl (32.0-36.0); MEAN CELL VOLUME 83.7 fl (80-96); MONO % 9.9 % (3.8-10.2); NEUT % 61.6 % (42.8-82.8); PLATELET COUNT 251 10^3/uL (134-434); RBC 3.74 M/mm3 (3.60-5.2); RDW 13.2 % (11.6-15.6); WHITE BLOOD COUNT 4.9 K/mm3 (4.0-10.0)
[2024-05-20 10:33] LABS: EPI CELLS >36 /uL (0-25.1); HYALINE CASTS 1 /uL (0-3.1); PH,URINE 5.5 (5.0-8.0); URINE APPEARANCE TURBID; URINE BACTERIA 1840 /uL (0-1359); URINE BILIRUBIN NEGATIVE (NEGATIVE); URINE COLOR YELLOW; URINE GLUCOSE (UA) 3+ (NEGATIVE); URINE KETONE NEGATIVE (NEGATIVE); URINE LEUK ESTERASE 3+ (NEGATIVE); URINE NITRITE POSITIVE (NEGATIVE); URINE PROTEIN 2+ (NEGATIVE); URINE RBC 88 /uL (0-23.9); URINE UROBILINOGEN 0.2 mg/dL (0.2-1.0); URINE WBC 9564 /uL (0-25.8)
[2024-05-20] MEDS: SODIUM CHLORIDE 0.9% 500 ML INFUS.BAG IV ONE (10:42)
[2024-05-20] MEDS ORDERED: MEROPENEM 1 GM VIAL (RESTRICTED TO ID) IVPB ONE ×2 (10:51→22:08)
[2024-05-20 10:59] LABS: CHLORIDE 98 mmol/L (98-107); POTASSIUM 4.3 mmol/L (3.5-5.1); SODIUM 134 mmol/L (136-145)
[2024-05-20 11:01] LABS: CALCIUM 9.2 mg/dL (8.5-10.1)
[2024-05-20 11:02] LABS: ANION GAP 7 mmol/L (4-13); BLOOD UREA NITROGEN 21.4 mg/dL (7-18); CO2 28 mmol/L (21-32)
[2024-05-20 11:05] LABS: CREATININE 1.2 mg/dL (0.55-1.3); SGOT/AST 40 U/L (15-37); SGPT/ALT 56 U/L (13-61)
[2024-05-20 11:06] LABS: BILIRUBIN,TOTAL 0.8 mg/dL (0.2-1); TOT PROT 6.6 g/dl (6.4-8.2)
[2024-05-20 11:08] LABS: ALK PHOS 245 U/L (45-117)
[2024-05-20 11:09] LABS: GLUCOSE,RANDOM 426 mg/dL (74-106)
[2024-05-20] MEDS: MEROPENEM 1 GM in DEXTROSE 5%-WATER 100 ML IVPB ONE (11:43)
[2024-05-20] MEDS: INSULIN (NOVOLOG) ASPART 100 UNITS/ML 10ML VIAL SQ ONE (11:43)
[2024-05-20] MEDS ORDERED: MORPHINE SULFATE 2 MG/ML SYRINGE ONE (13:04)
[2024-05-20] MEDS: morphine CARPU-JECT 2 MG/1 ML DISP.SYRIN IVPUSH ONE (13:10)
[2024-05-20] MEDS ORDERED: ACETAMINOPHEN 500 MG TABLET (FP) PO PRN (13:45)
[2024-05-20] MEDS ORDERED: KETOROLAC TROMETHAMINE 15 MG/ML VIAL IVPUSH PRN (13:45)
[2024-05-20] MEDS ORDERED: ACETAMINOPHEN 325 MG TABLET (FP) ONE (13:57)
[2024-05-20] MEDS: ACETAMINOPHEN 325 MG TABLET (FP) PO ONE (14:01)
[2024-05-20] MEDS ORDERED: TAMSULOSIN HCL 0.4 MG CAP ONE (14:17)
[2024-05-20] MEDS ORDERED: DEXTROSE 50%-WATER 25 GM/50 ML DISP.SYRIN ONE (14:27)
[2024-05-20] MEDS: DEXTROSE 50%-WATER - 25 GM/50 ML VIAL IVPUSH ONE (14:35)
[2024-05-20] MEDS: TAMSULOSIN HCL 0.4 MG CAP PO SCH (14:36)
[2024-05-20] MEDS: LACTATED RINGERS SOLUTION 1,000 ML/1,000 ML INFUS.BAG IV SCH (14:36)
[2024-05-20] MEDS: INSULIN ASPART SLIDING SCALE (NOVOLOG) 1 VIAL SQ SCH (17:47)
[2024-05-20] MEDS ORDERED: MEROPENEM 1 GM in DEXTROSE 5%-WATER 100 ML IVPB SCH ×3 (18:00→20:00)
[2024-05-20] MEDS ORDERED: MEROPENEM 1 GM in DEXTROSE 5%-WATER 100 ML IVPB ONE (22:00)
[2024-05-20] MEDS: MEROPENEM 1 GM in DEXTROSE 5%-WATER 100 ML IVPB SCH (22:17)
[2024-05-21 08:58] LABS: BASO % 0.9 % (0-2.0); EOS % 2.6 % (0-4.5); HEMATOCRIT 31.6 % (32.4-45.2); HEMOGLOBIN 11.1 GM/dL (10.7-15.3); LYMPH % 32.9 % (8-40); MCH 29.6 pg (25.7-33.7); MCHC 35.2 g/dl (32.0-36.0); MEAN CELL VOLUME 84.1 fl (80-96); MEAN PLT VOLUME 7.7 fl (7.5-11.1); MONO % 9.2 % (3.8-10.2); NEUT % 54.4 % (42.8-82.8); PLATELET COUNT 250 10^3/uL (134-434); RBC 3.76 M/mm3 (3.60-5.2); RDW 12.9 % (11.6-15.6)
[2024-05-21 09:09] LABS: POTASSIUM 4.5 mmol/L (3.5-5.1)
[2024-05-21 09:14] LABS: BLOOD UREA NITROGEN 17.4 mg/dL (7-18); CALCIUM 9.2 mg/dL (8.5-10.1)
[2024-05-21 09:18] LABS: CREATININE 0.6 mg/dL (0.55-1.3)
[2024-05-21] MEDS ORDERED: MEROPENEM 1 GM VIAL (RESTRICTED TO ID) IVPB ONE (09:37)
[2024-05-21] MEDS ORDERED: TAMSULOSIN HCL 0.4 MG CAP ONE (09:37)
[2024-05-21] MEDS ORDERED: INSULIN ASPART SLIDING SCALE (NOVOLOG) 1 VIAL SQ ONE (09:38)
[2024-05-21] MEDS ORDERED: CEFTRIAXONE 1 GM in DEXTROSE 5%-WATER - 50 ML IVPB SCH (10:00)
[2024-05-21] MEDS ORDERED: INSULIN ASPART SLIDING SCALE (NOVOLOG) 1 VIAL SQ SCH (11:04)
[2024-05-21] MEDS ORDERED: ACETAMINOPHEN INJECTION 100 ML ONE (11:42)
[2024-05-21] MEDS ORDERED: KETOROLAC TROMETHAMINE 30 MG/1 ML VIAL ONE (11:42)
[2024-05-21] MEDS ORDERED: SUCCINYLCHOLINE CHLORIDE 200 MG/10 ML SYRINGE ONE (11:42)
[2024-05-21] MEDS ORDERED: LIDOCAINE HCL/PF 2% SDV 5ML VIAL ONE (11:42)
[2024-05-21] MEDS ORDERED: ONDANSETRON 4 MG/2 ML VIAL ONE ×2 (11:42→12:48)
[2024-05-21] MEDS ORDERED: PHENYLEPHRINE HCL 10 MG/1 ML SINGLE DOSE VIAL ONE (11:42)
[2024-05-21] MEDS ORDERED: DEXAMETHASONE SOD PHOSPHATE 4 MG/1 ML VIAL ONE (11:42)
[2024-05-21] MEDS ORDERED: PROPOFOL 20 ML ONE (11:43)
[2024-05-21] MEDS ORDERED: ONDANSETRON 4 MG/2 ML VIAL IVPUSH PRN ×2 (12:34→14:47)
[2024-05-21] MEDS ORDERED: PROMETHAZINE HCL 25 MG/1 ML VIAL IVPB PRN ×2 (12:34→14:47)
[2024-05-21] MEDS: LACTATED RINGERS SOLUTION 1,000 ML IV SCH ×2 (12:39→15:42)
[2024-05-21] MEDS ORDERED: morphine CARPU-JECT 2 MG/1 ML DISP.SYRIN IVPUSH PRN (12:42)
[2024-05-21] MEDS ORDERED: MORPHINE SULFATE 2 MG/ML SYRINGE IVPUSH PRN ×2 (12:48→14:47)
[2024-05-21] MEDS ORDERED: MIDAZOLAM HCL 2 MG/2 ML SINGLE DOSE VIAL ONE (12:50)
[2024-05-21] MEDS ORDERED: MEROPENEM 1 GM in DEXTROSE 5%-WATER 100 ML IVPB ONE (14:47)
[2024-05-21] MEDS: INSULIN ASPART SLIDING SCALE (NOVOLOG) 1 VIAL SQ SCH (18:58)
[2024-05-21] MEDS: KETOROLAC TROMETHAMINE 15 MG/ML VIAL IVPUSH PRN (19:11)
[2024-05-21 20:18] VITALS: BMI 20.4
[2024-05-21] MEDS: MEROPENEM 1 GM in DEXTROSE 5%-WATER 100 ML IVPB SCH (21:53)
[2024-05-21 23:28] VITALS: RESP 20
[2024-05-22] MEDS: INSULIN (NOVOLOG) ASPART 100 UNITS/ML 10ML VIAL SQ ONE (00:20)
[2024-05-22 08:42] LABS: HEMATOCRIT 30.2 % (32.4-45.2); HEMOGLOBIN 10.7 GM/dL (10.7-15.3); MCH 29.3 pg (25.7-33.7); MCHC 35.3 g/dl (32.0-36.0); MEAN PLT VOLUME 7.8 fl (7.5-11.1); PLATELET COUNT 264 10^3/uL (134-434); RBC 3.64 M/mm3 (3.60-5.2); RDW 13.2 % (11.6-15.6)
[2024-05-22 08:57] LABS: POTASSIUM 4.1 mmol/L (3.5-5.1)
[2024-05-22] MEDS: ACETAMINOPHEN 500 MG TABLET (FP) PO PRN (08:59)
[2024-05-22 09:06] LABS: BLOOD UREA NITROGEN 25.8 mg/dL (7-18); MAGNESIUM 1.8 mg/dL (1.8-2.4)
[2024-05-22 09:09] LABS: CREATININE 0.8 mg/dL (0.55-1.3)
[2024-05-22] MEDS: TAMSULOSIN HCL 0.4 MG CAP PO SCH (09:39)
[2024-05-22] MEDS: NAPH,MB-DB/K PH,MBDB POWDER PACKET PO SCH (10:52)
[2024-05-22 15:20] VITALS: BP 115/62; PULSE 93; TEMP 98.6
== END 2024-05-22 15:51 | disposition home or self-care (01) | DRG 463 ==
LOC: JER 09:34 → JERBED 13:09 → J8W 05-21 18:45
PROVIDERS: ADMIT Internal Medicine; ATTEND Nurse Practitioner Acute Care
PROC: 0T768DZ Dilation of Right Ureter with Intraluminal Device, Via Natural or Artificial Opening Endoscopic (ICD-10-PCS; principal; 2024-05-21 15:30)
PROC: BT04YZZ Plain Radiography of Kidneys, Ureters and Bladder using Other Contrast (ICD-10-PCS; 2024-05-21 15:30)
DX: N13.6 Pyonephrosis (principal); E11.65 Type 2 diabetes mellitus with hyperglycemia; M06.9 Rheumatoid arthritis, unspecified
CPT/HCPCS: 36415; 74176-TC; 76000-TC-FY; 80048; 80053; 81003; 82962; 83036; 83735; 84100; 85025; 85027; 87040; 87086; 94760; 99285-25; C2617; J0131